=== PATIENT | female | born 1970 | race Caucasian/White ===

== ENCOUNTER 2019-07-13 10:25 | Emergency (ER) | payer OTHER, SELFPAY ==
--- NOTE | 2019-07-13 10:35 | ED.URI ---
HPI - URI/Sore Throat General Chief Complaint: Upper Respiratory Infection Stated Complaint: sob/fatigue/cough Time Seen by Provider: 07/13/19 10:50 Source: patient and RN notes reviewed Mode of arrival: ambulatory Limitations: no limitations History of Present Illness HPI Narrative: 48-year-old female with rheumatoid arthritis presents with concern for fever, body aches, diarrhea, headache, cough that started Saturday night. Reports she did not get a flu shot this year. Reports she takes immunosuppressant medicines for RA. MD elicited complaint: cough Related Data Home Medications Medication Instructions Recorded Confirmed abatacept (with maltose) [Orencia 250 mg IV MONTHLY 07/13/19 07/13/19 (with maltose)] folic acid 1 mg DAILY 07/13/19 07/13/19 ibuprofen-famotidine [Duexis] 1 tablet PO 3XW 07/13/19 07/13/19 leflunomide 10 mg DAILY 07/13/19 07/13/19 Allergies Allergy/AdvReac Type Severity Reaction Status Date / Time Penicillins Allergy Unknown Verified 04/09/18 15:20 Review of Systems Review of Systems: Narrative: CONSTITUTIONAL: Reports malaise, chills, sweats, or fever. EYES: Denies visual changes, redness, or discharge. ENT: Reports rhinorrhea, congestion. Denies sinus pain, otalgia and sore throat. CARDIOVASCULAR: Denies chest pain, palpitations, or edema. RESPIRATORY: Reports cough, chest congestion. Denies dyspnea. GASTROINTESTINAL: Denies abdominal pain, nausea, vomiting, diarrhea SKIN: Denies rash or itching. MUSCULOSKELETAL: Denies myalgia. NEUROLOGIC: Denies headache. All systems reviewed & are unremarkable except as noted in HPI and below PMFSH Family History Family History (Updated 04/09/18 @ 15:23 by DOCTOR UNKNOWN) Father Diabetes mellitus Hypertension Mother Family history of arthritis Social History Social History Gender identity (if verbalized by the patient): Female Comments At time of signature, agree with nursing past medical, surgical, social and family history. There is no relevant family history pertinent to the presenting complaint Exam Narrative: Exam Narrative: GENERAL: Well-appearing, well-nourished, and in no acute distress. HEAD: Normocephalic, atraumatic. EYES: PERRLA, conjunctivae clear, and EOMI. ENT: Nares clear, turbinates edematous and erythematous, clear discharge. Mucous membranes moist. TM pearly mahoney with dull light reflex bilaterally; no tragal tenderness. Oropharynx erythematous without lesions. Tonsils not enlarged and without exudate, no drooling, no hoarseness, no trismus. NECK: Supple. No lymphadenopathy CHEST: Clear to auscultation, breath sounds equal. Scattered wheeze, no rhonchi, rales, or stridor. No respiratory distress, speaks in full sentences. Cough noted HEART: Regular rate and rhythm. No murmur heard. Normal peripheral pulses. SKIN: Warm, dry, no rash. NEURO: Alert and oriented x3. PSYCH: Normal mood and affect Course Course Emergency Course: Patient is aware of diagnosis, understands and agrees to treatment plan. Anticipatory guidance given. Patient agrees to follow-up as directed and is aware of reasons to seek care at the emergency department. Portions of this record may have been created with voice recognition software Vital Signs Vital signs: Vital Signs Temperature 99.7 F H 07/13/19 10:40 Pulse Rate 97 07/13/19 10:40 Respiratory Rate 07/13/19 10:40 Blood Pressure 120/65 07/13/19 10:40 Pulse Oximetry 99 07/13/19 10:40 Temperature 99.7 F H 07/13/19 10:40 Pulse Rate 97 07/13/19 10:40 Respiratory Rate 07/13/19 10:40 Blood Pressure 120/65 07/13/19 10:40 Pulse Oximetry 99 07/13/19 10:40 Reviewed. MDM - URI/Sore Throat MDM Narrative Medical decision making narrative: Differential diagnosis considered: Strep pharyngitis, allergic rhinitis, upper respiratory tract infection, sinusitis, rhinosinusitis, nasopharyngitis. viral pharyngitis, otitis media, otitis externa, pneumonia, bronchi
[2019-07-13 10:40] VITALS: BP 120/65; PULSE 97; RESP 20; TEMP 37.6; O2SAT 99
== END 2019-07-13 11:11 | disposition home or self-care (01) ==
PROVIDERS: Emergency Provider Nurse Practitioner
DX: J10.1 Influenza due to other identified influenza virus with other respiratory manifestations (principal)
CPT/HCPCS: 87804; 99213; G0463

== ENCOUNTER 2019-07-19 15:49 | Emergency (ER) | payer OTHER, SELFPAY ==
--- NOTE | ~2019-07-19 | XR_ITS ---
EXAMINATION: XR chest 2V DATE: 07/19/2019 16:32 INDICATION: Cough. TECHNIQUE: Frontal and lateral views of the chest were obtained. COMPARISON: Chest 2 views 09/08/2018, chest CT 07/31/2017 FINDINGS: There are airspace opacities in the lower lung zones. No pleural effusion or pneumothorax. The heart size is normal. Surgical clips in the right upper quadrant are likely from cholecystectomy. IMPRESSION: 1. Mild airspace opacities in the lower lung zones, consistent with atelectasis versus pneumonia. Reviewed, dictated and finalized at location A. TER TOUCH UP
[2019-07-19 15:58] VITALS: BP 97/61; PULSE 97; RESP 20; TEMP 36.9; O2SAT 98
--- NOTE | 2019-07-19 16:24 | ED.URI ---
HPI - URI/Sore Throat General Chief Complaint: Upper Respiratory Infection Stated Complaint: SOB/chest congestion/cough Time Seen by Provider: 07/19/19 16:12 Source: patient and RN notes reviewed Mode of arrival: ambulatory Limitations: no limitations History of Present Illness HPI Narrative: Patient presents today complaining of a one-week history of cough. She was seen here on 07/13/2019, diagnosed with influenza A and subsequently prescribed Xofluza, prednisone, Cheratussin, and ipratropium nasal spray. States her fever broke 3 days ago. She is also been taking ibuprofen. States cough and shortness of breath was so severe this morning that she almost called 911 . When asked why she did not go to the ER, patient states that she did want to go to the hospital, but her family would not take her there because they did not want to wait during Bowsaturday. Patient has history of rheumatoid arthritis, factor V Leiden. MD elicited complaint: cough and other (Shortness of breath) Related Data Home Medications Medication Instructions Recorded Confirmed abatacept (with maltose) [Orencia 250 mg IV MONTHLY 07/13/19 07/13/19 (with maltose)] folic acid 1 mg DAILY 07/13/19 07/13/19 ibuprofen-famotidine [Duexis] 1 tablet PO 3XW 07/13/19 07/13/19 leflunomide 10 mg DAILY 07/13/19 07/13/19 Allergies Allergy/AdvReac Type Severity Reaction Status Date / Time Penicillins Allergy Unknown Verified 04/09/18 15:20 Review of Systems Review of Systems: Narrative: CONSTITUTIONAL: Denies body aches, fever, chills, or sweats. EYES: Denies visual changes, redness, or discharge. ENT: Denies rhinorrhea, congestion, sore throat, or otalgia. CARDIOVASCULAR: Denies chest pain, palpitations, or edema. RESPIRATORY: + Cough, shortness of breath GASTROINTESTINAL: Denies abdominal pain, nausea, vomiting, or diarrhea. GENITOURINARY: Denies dysuria or hematuria. SKIN: Denies rash, itching, or wounds. MUSCULOSKELETAL: Denies back pain, joint pain, or myalgia. NEUROLOGIC: Denies headache, numbness, tingling, or weakness. PSYCH: Denies depression or anxiety. [facility] Past Medical History Medical History (Updated 07/19/19 @ 16:50 by Rosa Ramirez, [facility], ) Factor V Leiden Rheumatoid arthritis Surgical History Surgical History (Updated 07/19/19 @ 16:28 by Rosa Ramirez, [facility], ) History of cholecystectomy Family History Family History (Updated 04/09/18 @ 15:23 by DOCTOR UNKNOWN) Father Diabetes mellitus Hypertension Mother Family history of arthritis Social History Social History Gender identity (if verbalized by the patient): Female Comments At time of signature, I have reviewed and agree with nursing past medical, surgical, social and family history unless otherwise noted. Please see nursing chart for further information. There is no relevant family history pertinent to the presenting complaint Exam Narrative: Exam Narrative: GENERAL: Mildly ill-appearing, well-nourished, and in no acute distress. HEAD: Normocephalic, atraumatic. EYES: EOMI. No redness or drainage. Conjunctivae normal. ENT: Mucous membranes pink and moist. Nares clear. No rhinorrhea. TMs normal bilaterally. Throat normal. Uvula midline. NECK: Normal AROM. Supple. No lymphadenopathy. CHEST: No respiratory distress. Coarse breath sounds in the bilateral lower lobes. Able to speak in complete sentences. HEART: Regular rate and rhythm. No murmur appreciated. Normal peripheral pulses. MUSCULOSKELETAL: No bony tenderness. EXTREMITIES: Normal range of motion. No edema. SKIN: Warm, dry, no rash. NEURO: No focal deficits. Alert and oriented x3. Gait steady. PSYCH: Normal affect. No signs of depression or anxiety. Course Vital Signs Vital signs: Vital Signs Temperature 98.4 F 07/19/19 15:58 Pulse Rate 97 07/19/19 15:58 Respiratory Rate 20 07/19/19 15:58 Blood Pressure 97/61 L 07/19/19 15:58 Pulse Oximetry 98 07/19/19 15
[2019-07-19] MEDS: ALBUTEROL SULFATE NEB 2.5 MG/3 ML INH INHALATION (16:33)
[2019-07-19] MEDS: IPRATROPIUM BR 0.02% INH SOLN 0.5 MG/2.5 ML VIAL INHALATION (16:33)
== END 2019-07-19 17:00 | disposition home or self-care (01) ==
PROVIDERS: Emergency Provider Nurse Practitioner
DX: J18.9 Pneumonia, unspecified organism (principal); M06.9 Rheumatoid arthritis, unspecified
CPT/HCPCS: 71046; 94640; 99213; G0463

== ENCOUNTER 2019-09-17 12:03 | Emergency (ER) | payer OTHER, SELFPAY ==
--- NOTE | ~2019-09-17 | XR_ITS ---
XR foot LT min 3V DATE: 09/17/2019 12:19 INDICATION: Injury. Pain at third-fifth metatarsals TECHNIQUE: 4 views COMPARISON: None FINDINGS: Posterior calcaneal enthesopathy. No fracture or dislocation, periosteal reaction or bone destruction is evident. IMPRESSION: No fracture or dislocation Reviewed, dictated and finalized at location B. IMPRESSION: No fracture or dislocation
--- NOTE | 2019-09-17 12:05 | ED.LOWEXIN ---
HPI - Extremity Injury (Lower) General Chief Complaint: Extremity Injury, Lower Stated Complaint: Left foot Pain Time Seen by Provider: 09/17/19 12:18 Source: patient and RN notes reviewed Mode of arrival: ambulatory Limitations: no limitations History of Present Illness HPI Narrative: 48-year-old female presents with concern for left foot injury. Reports 2 hours ago she ran her foot into a door jam. Reports pain is at the top of her foot below digits 4 and 5 particularly. Reports swelling and decreased sensation. Reports history of rheumatoid arthritis. Denies any open wounds. MD complaint: foot injury Related Data Home Medications Medication Instructions Recorded Confirmed abatacept (with maltose) [Orencia 250 mg IV MONTHLY 07/13/19 07/13/19 (with maltose)] folic acid 1 mg DAILY 07/13/19 07/13/19 ibuprofen-famotidine [Duexis] 1 tablet PO 3XW 07/13/19 07/13/19 leflunomide 10 mg DAILY 07/13/19 07/13/19 Allergies Allergy/AdvReac Type Severity Reaction Status Date / Time Penicillins Allergy Unknown Verified 04/09/18 15:20 Review of Systems Review of Systems: Narrative: CONSTITUTIONAL: Denies malaise, chills, sweats, or fever. CARDIOVASCULAR: Denies chest pain, palpitations RESPIRATORY: Denies dyspnea. SKIN: Reports redness, bruising to left dorsal aspect of left foot MUSCULOSKELETAL: Reports dorsal left foot pain, decreased sensation to the digits of the left foot NEUROLOGIC: Denies numbness, weakness. All systems reviewed & are unremarkable except as noted in HPI and below PMFSH Past Medical History Medical History (Updated 09/17/19 @ 12:31 by Jolie Munoz NP) Factor V Leiden Rheumatoid arthritis Surgical History Surgical History (Updated 07/19/19 @ 16:28 by Rosa Ramirez, [facility], ) History of cholecystectomy Family History Family History (Updated 04/09/18 @ 15:23 by DOCTOR UNKNOWN) Father Diabetes mellitus Hypertension Mother Family history of arthritis Social History Social History Gender identity (if verbalized by the patient): Female Comments At time of signature, agree with nursing past medical, surgical, social and family history. There is no relevant family history pertinent to the presenting complaint Exam Narrative: Exam Narrative: GENERAL: Well-appearing, well-nourished, and in no acute distress. HEAD: Normocephalic, atraumatic. EYES: PERRLA, conjunctivae clear NECK: Supple. CHEST: Speaks in full sentences. No respiratory distress. HEART: Regular rate and rhythm. Normal and equal peripheral pulses. EXTREMITIES: Left foot and digits of left foot have normal strength, decreased sensation to digits 3, 4 and 5 otherwise normal sensation. Minimal edema noted to dorsal aspect of the foot below digits 4 and 5 in addition to digits 4 and 5, normal range of motion. 5/5 strength with digit and ankle flexion and extension. Normal sensation with sensitivity to light touch and pain. No open wounds, no skin tenting, no devitalized tissue or atrophy, no trophic changes, no ecchymosis, no obvious deformity, alignment normal, no point tenderness, nearby joints and structures intact. Distal pulses palpable and equal bilaterally, skin warm, dry, pink. Capillary refill less than 3 seconds. SKIN: Warm, dry, no rash. NEURO: Alert and oriented x3. PSYCH: Normal mood and affect Course Course Emergency Course: Patient is aware of diagnosis, understands and agrees to treatment plan. Anticipatory guidance given. Patient agrees to follow-up as directed and is aware of reasons to seek care at the emergency department. Portions of this record may have been created with voice recognition software Vital Signs Vital signs: Vital Signs Temperature 98.5 F 09/17/19 12:23 Pulse Rate 98 09/17/19 12:23 Respiratory Rate 20 09/17/19 12:23 Blood Pressure 119/74 09/17/19 12:23 Pulse Oximetry 98 09/17/19 12:23 Temperature 98.5 F 09/17/19 12:23 Pulse Rate 98 09/17/19 12:23
[2019-09-17 12:23] VITALS: BP 119/74; PULSE 98; RESP 20; TEMP 36.9; O2SAT 98
== END 2019-09-17 12:38 | disposition home or self-care (01) ==
PROVIDERS: Emergency Provider Nurse Practitioner; PCP Emergency Medicine
DX: S99.922A Unspecified injury of left foot, initial encounter (principal); W22.09XA Striking against other stationary object, initial encounter; D68.2 Hereditary deficiency of other clotting factors; M06.9 Rheumatoid arthritis, unspecified
CPT/HCPCS: 73630; 99213; G0463

== ENCOUNTER 2020-06-10 10:42 | Emergency (ER) | payer OTHER, SELFPAY ==
[2020-06-10] VITALS (16 sets, daily range): BP systolic 107–127; BP diastolic 58–97; PULSE 73–97; RESP 13–27; TEMP 36.6; O2SAT 98–100
--- NOTE | ~2020-06-10 | CT_ITS ---
EXAMINATION: CTA chest PE protocol EXAM DATE: 06/10/2020 14:17 INDICATION: Chest pain, shortness of breath, elevated dimer. TECHNIQUE: Spiral CTA of the chest (pulmonary arteries) was performed with 100 cc Omnipaque 350 intr avenous contrast injection. Images were acquired during the pulmonary arterial phase. Coronal maxi mum intensity projection 3D-reconstructions were created by the technologist on dedicated workstation . Axial, coronal and sagittal reformatted images were reviewed. The dose-length product (DLP) for t his examination was 255.99 mGy-cm. The exposure was tailored according to patient size (auto mA exp osure control), and iterative reconstruction (ASIR) was used as additional dose reduction technique. Comparison is made to prior examination from 07/31/2017. FINDINGS: There are no pulmonary emboli in the 1st through 3rd order (central and interlobar) pulmon armani arteries. Some loss of attenuation in the segmental pulmonary arteries due to respiratory motion , but no intraluminal filling defects suspected. No thoracic aortic dissection. There is a 5 mm no dule at the right lung apex, image 25, new compared to 2018. Bibasilar linear scarring. There are no pleural or pericardial effusions. Tracheobronchial tree is patent. There is no mediastinal, hilar or axillary lymphadenopathy. There is no pneumothorax. Heart normal in size. No evidence of co ronary arterial calcification. Cholecystectomy clips. There is mild thoracic spondylosis without os teoblastic or osteolytic lesions identified. IMPRESSION: 1. New right upper lobe 5 mm nodule, indeterminate; recommend 6 month follow-up chest CT. 2. Bibasilar linear scarring. 3. No pulmonary emboli. Reviewed, dictated and finalized at location A. R TOBACCO HEAD IMPRESSION: 1. New right upper lobe 5 mm nodule, indeterminate; recommend 6 month follow-u p chest CT. 2. Bibasilar linear scarring. 3. No pulmonary emboli.
--- NOTE | ~2020-06-10 | XR_ITS ---
EXAMINATION: XR chest 2V EXAM DATE: 06/10/2020 11:13 INDICATION: Chest pressure radiating to both sides of neck. TECHNIQUE: Frontal and lateral projections of the chest obtained and reviewed. Comparison is made to prior examination from 07/19/2019. FINDINGS: Small amount of linear left lower lobe scarring and change. The lungs are otherwise clear. There are no pleural effusions. The cardiomediastinal silhouette is within normal limits. There is no pneumothorax suspected. There are mild bony degenerative changes. IMPRESSION: No acute cardiopulmonary findings. Reviewed, dictated and finalized at location A. MANAGER CPA
--- NOTE | 2020-06-10 10:57 | ECG_ITS ---
Measurements Intervals [place] Rate: 90 P: 71 [place]: 124 QRS: 62 QRSD: 88 T: 67 QT: 346 QTc: 424 Interpretive Statements SINUS RHYTHM WITH SINUS ARRHYTHMIA RSR' IN V1 OR V2, PROBABLY NORMAL VARIANT BASELINE ARTIFACT- I, III, AVL BORDERLINE ECG Electronically Signed On 06-10-2020 11:48:00 [employer] TECHNICIAN by Freedom Dorado D.O.
[2020-06-10 11:10] LABS: Basophils Absolute Auto 0.1 K/mm3 (0.0-0.1); Basophils Percent Auto 0.6 % (0.2-1.2); Eosinophils Absolute Auto 0.5 K/mm3 (0-0.3); Eosinophils Percent Auto 5.3 % (0-4.4); Hematocrit 44.1 % (37.0-47.0); Hemoglobin 15.2 g/dL (12.0-15.0); Immature Granulocyte Absolute 0.02 K/mm3 (0.00-0.031); Immature Granulocyte Percent A 0.2 % (0-0.5); Lymphocytes Absolute Auto 1.57 K/mm3 (0.9-3.2); Lymphocytes Percent Auto 17.7 % (18.3-44.2); Mean Corpuscular HGB Conc 34.5 g/dl (32-36); Mean Corpuscular Hemoglobin 31.3 pg (26-34); Mean Corpuscular Volume 90.9 fl (80-100); Mean Platelet Volume 9.6 fl (7.4-10.4); Monocytes Absolute Auto 0.7 K/mm3 (0.1-0.6); Monocytes Percent Auto 7.4 % (2.6-8.5); Neutrophils Absolute Auto 6.1 K/mm3 (1.3-6.7); Neutrophils Percent Auto 68.8 % (45.5-73.1); Platelet Count Result 227 k/mm3 (150-375); Red Blood Count 4.85 M/mm3 (4.2-5.4); Red Cell Distribution Width 11.8 % (11.5-14.5); White Blood Count 8.9 K/mm3 (4.5-10.0)
[2020-06-10 11:20] LABS: INR 0.8; Prothrombin Time 11.7 Seconds (11.1-14.7)
[2020-06-10 11:21] LABS: Partial Thromboplastin Time 28.4 SECONDS (22.3-36.8)
[2020-06-10 11:23] LABS: Anion Gap 7 mmol/L (8-16); Blood Urea Nitrogen 17 mg/dL (7-17); Calcium 9.7 mg/dL (8.4-10.2); Carbon Dioxide 23 mmol/L (22-30); Chloride 107 mmol/L (98-107); Estimated CRCL calculation 90 ml/min; Estimated Glomerular Filt Rate > 60; Glucose 104 mg/dL (65-105); Potassium 4.1 mmol/L (3.4-5.0); Sodium 137 mmol/L (137-145)
[2020-06-10 11:35] LABS: Troponin I < 0.012 ng/mL (0.000-0.034)
[2020-06-10] MEDS: ASPIRIN 81 MG CHEWABLE TABLET 324 MG PO (11:41)
--- NOTE | 2020-06-10 12:08 | ED.CHESTPAIN ---
HPI - Chest Pain General Chief Complaint: Chest Pain <Rachna Lobo PA-C - Last Filed: 06/10/20 15:01> Stated Complaint: chest pain, sob <CATALINA Acuna Last Filed: 06/10/20 15:01> Time Seen by Provider: 06/10/20 11:36 <CATALINA Acuna Last Filed: 06/10/20 15:01> Source: patient <CATALINA Acuna Last Filed: 06/10/20 15:01> Mode of arrival: ambulatory <CATALINA Acuna Last Filed: 06/10/20 15:01> Limitations: no limitations <CATALINA Acuna Last Filed: 06/10/20 15:01> History of Present Illness HPI narrative: This is a 49 year old female that presents to the ER for chest pain that started yesterday. Reports a tightness in her chest. Reports history of RA and that she feels she is having a flare as her hands are starting to swell as well. Reports associated shortness of breath. Denies fever, cough, or lower extremity edema. <CATALINA Acuna Last Filed: 06/10/20 15:01> Related Data Home Medications: Home Medications Medication Instructions Recorded Confirmed abatacept (with maltose) [Orencia 250 mg IV MONTHLY 07/13/19 09/17/19 (with maltose)] folic acid 1 mg DAILY 07/13/19 09/17/19 ibuprofen-famotidine [Duexis] 1 tablet PO 3XW 07/13/19 07/13/19 leflunomide 10 mg DAILY 07/13/19 09/17/19 <CATALINA Acuna Last Filed: 06/10/20 15:01> Allergies/Adverse Reactions: Allergies Allergy/AdvReac Type Severity Reaction Status Date / Time Penicillins Allergy Unknown Verified 04/09/18 15:20 <CATALINA Acuna Last Filed: 06/10/20 15:01> Review of Systems Review of Systems: Narrative: CONSTITUTIONAL: Denies fever CARDIOVASCULAR: Reports chest pain. Denies edema. RESPIRATORY: Denies cough or dyspnea. MUSCULOSKELETAL: Reports joint pain, and myalgia. <Rachna Lobo PA-C - Last Filed: 06/10/20 15:01> All systems reviewed & are unremarkable except as noted in HPI and below <Rachna Lobo PA-C - Last Filed: 06/10/20 15:01> PMFSH Past Medical History Medical History: Medical History (Updated 06/10/20 @ 15:01 by Rachna Lobo PA-C) Factor V Leiden Rheumatoid arthritis <Rachna Lobo PA-C - Last Filed: 06/10/20 15:01> Surgical History Surgical History: Surgical History (Updated 07/19/19 @ 16:28 by Rosa Ramirez, [facility], ) History of cholecystectomy <Rachna Lobo PA-C - Last Filed: 06/10/20 15:01> Family History Family History: Family History (Updated 04/09/18 @ 15:23 by DOCTOR UNKNOWN) Father Diabetes mellitus Hypertension Mother Family history of arthritis <Rachna Lobo PA-C - Last Filed: 06/10/20 15:01> Social History Social History: Social History Gender identity (if verbalized by the patient): Female Sexual Orientation (if Verbalized by the Patient): Straight or Heterosexual <Rachna Lobo PA-C - Last Filed: 06/10/20 15:01> Exam Narrative: Exam Narrative: GENERAL: Well-appearing, well-nourished, and in no acute distress. HEAD: Normocephalic, atraumatic. EYES: EOMI. ENT: Mucous membranes moist. Oropharynx without tonsillar hypertrophy exudate or other lesions. CHEST: Clear to auscultation. No respiratory distress. No wheezes rales or rhonchi HEART: Regular rate and rhythm. No murmur heard. Normal peripheral pulses. EXTREMITIES: Normal range of motion. No edema. SKIN: Warm, dry, no rash. NEURO: No focal deficits. Alert and oriented x3. PSYCH: Normal mood and affect <Rachna Lobo PA-C - Last Filed: 06/10/20 15:01> Course Vital Signs Vital signs: Vital Signs Pulse Rate 94 06/10/20 10:50 Respiratory Rate 27 H 12/25/20 10:50 Blood Pressure 116/85 06/10/20 10:50 Temperature 97.8 F 06/10/20 10:58 Pulse Rate 88 06/10/20 15:12 Respiratory Rate 14 06/10/20 15:12 Blood Pressure 107/80 06/10/20 15:12 Pulse Oximetry 99 06/10/20 15:12 <Rachna Lobo PA-C - Last Filed: 06/10/20 1
[2020-06-10] MEDS: KETOROLAC 30 MG/ML VIAL (*BKC) IV PUSH (12:14)
--- NOTE | 2020-06-10 12:16 | PC.NURSE ---
patient medicated as ordered. resting on stretcher. on litigation claim representative.
[2020-06-10] MEDS: methylPREDNISolone SOD SUCC 125 MG VIAL IV PUSH (12:27)
[2020-06-10 12:44] LABS: D Dimer 2.77 ug/mL (<0.48)
[2020-06-10 13:34] LABS: CRP 1.5 mg/dL (<1.0)
[2020-06-10 14:02] LABS: Erythrocyte Sedimentation Rate 38 mm/hr (0-20)
[2020-06-10 14:25] LABS: Troponin I < 0.012 ng/mL (0.000-0.034)
[2020-06-10] MEDS: ENOXAPARIN 100 MG/ML SYRINGE 85 MG SUB-Q (15:04)
== END 2020-06-10 15:13 | disposition home or self-care (01) ==
PROVIDERS: Physician Assistant; Emergency Provider General Practice; PCP Emergency Medicine
DX: R91.1 Solitary pulmonary nodule (principal); R07.89 Other chest pain; M06.9 Rheumatoid arthritis, unspecified; D68.51 Activated protein C resistance
CPT/HCPCS: 36415; 71046; 71275; 80048; 81025; 84484; 85025; 85380; 85610; 85652; 85730; 86140; 93005; 96372; 96374; 96375; 99284; A9270; J1650; J1885; J2930; Q9967

== ENCOUNTER 2021-06-20 09:59 | Outpatient (RCR) | payer OTHER, SELFPAY ==
[2021-06-20 15:35] VITALS: BP 108/64; PULSE 70; RESP 18; TEMP 35.5; O2SAT 100
[2021-06-20] MEDS: diphenhydrAMINE HCl CAP 25 MG CAPSULE PO (15:38)
[2021-06-20] MEDS: ACETAMINOPHEN 325 MG TABLET 650 MG PO (15:38)
[2021-06-20] MEDS: FAMOTIDINE 20 MG TABLET PO (15:38)
[2021-06-20 17:04] VITALS: BP 103/63; PULSE 66; O2SAT 100
== END 2021-06-20 17:00 ==
LOC: AMCINF 09:59
PROVIDERS: PCP Nurse Practitioner Family; Referring Provider Nurse Practitioner Family; Visit Provider Internal Medicine Hematology & Oncology
DX: U07.1 COVID-19 (principal); D84.9 Immunodeficiency, unspecified
CPT/HCPCS: A9270; M0247

== ENCOUNTER → 2022-02-26 09:47 | Outpatient (CLI) | payer OTHER, SELFPAY ==
[2022-02-27 11:17] LABS: Influenza A QL RT-PCR Negative (Negative); Influenza B QL RT-PCR Negative (Negative); SARS-CoV-2 RNA PCR Positive
== END ==
PROVIDERS: PCP Family Medicine; Visit Provider Nurse Practitioner Family
DX: R05.9 Cough, unspecified (principal); R68.83 Chills (without fever); U07.1 COVID-19
CPT/HCPCS: 87502; C9803; U0003; U0005

== ENCOUNTER 2022-02-26 10:28 | Outpatient (CLI) | payer OTHER, SELFPAY ==
--- NOTE | ~2022-02-26 | XR_ITS ---
EXAMINATION: XR chest 2V DATE: 02/26/2022 10:46 INDICATION: Persistent productive cough and body aches TECHNIQUE: PA and lateral views of the chest are obtained. COMPARISON: 06/10/2020 FINDINGS: The lungs are free of acute opacities. No pleural effusion or pneumothorax. The cardiomedia stinal silhouette is normal. There is mild thoracic spondylosis. Surgical clips in the right upper qu adrant are likely from prior cholecystectomy. IMPRESSION: 1. No acute cardiopulmonary abnormality. Reviewed, dictated and finalized at location B.
== END 2022-02-26 10:29 | disposition home or self-care (01) ==
LOC: ANHIMG 10:32
PROVIDERS: PCP Family Medicine; Visit Provider Nurse Practitioner Family
DX: R05.9 Cough, unspecified (principal); R68.83 Chills (without fever)
CPT/HCPCS: 71046

== ENCOUNTER 2022-04-09 13:10 | Emergency (ER) | payer OTHER, SELFPAY ==
[2022-04-09 13:21] VITALS: BP 97/53; PULSE 97; RESP 18; TEMP 36.7; O2SAT 99
--- NOTE | 2022-04-09 13:51 | ED.URI ---
HPI - URI/Sore Throat General Chief Complaint: Upper Respiratory Infection Stated Complaint: flu like symptoms Time Seen by Provider: 04/09/22 13:30 Source: patient Mode of arrival: ambulatory Limitations: no limitations History of Present Illness HPI Narrative: This cannot be is a 51-year-old female patient presenting to the clinic today with complaints of flu-like symptoms. She reports that she has had a fever of 102 and some sinus pressure times 2-3 days. She reports that she has been having to do with long COVID syndrome and has been having chronic sinusitis issues with this. She reports she just finished up antibiotics 2 weeks ago for chronic sinusitis. She reports that every other day she is having some nasal drainage and different variations of color. States she has a history of rheumatoid arthritis and she gets infusions for this. She is concerned about the fever as though she may have influenza and would like to be testing for the flu today. She denies have a cough but states that is coming from her sinuses. She denies any shortness of breath or chest pain currently. She denies any sore throat, urinary symptoms, or abdominal pain. States that her temperature was a 102? F on her arm and her head scan would not work MD elicited complaint: sore throat and nasal congestion Related Data Home Medications Medication Instructions Recorded Confirmed cholecalciferol (vitamin D3) 50 50 mcg PO DAILY 06/20/21 02/14/22 mcg (2,000 unit) capsule (Vitamin D3) lactobacillus combination no.4 3 3,000 mmu cells PO DAILY 06/20/21 02/14/22 billion cell capsule (Probiotic) tcliuumv-aci-diouc acid 0.4 1 tablet PO DAILY 06/20/21 02/14/22 mg-lycopene 300 mcg-lutein 250 mcg tablet (Centrum Silver) naproxen sodium 220 mg capsule 220 mg PO DAILY 06/20/21 02/14/22 (Aleve) rituximab 10 mg/mL 1,000 mg IV [id number] 06/20/21 02/14/22 concentrate,intravenous (Rituxan) Allergies Allergy/AdvReac Type Severity Reaction Status Date / Time nitrofurantoin Allergy Unknown Skin Verified 02/23/22 11:01 Reaction Penicillins Allergy Unknown Unknown Verified 02/23/22 11:01 Review of Systems Review of Systems: Pertinent positives per HPI. Patient denies any rash, headache, visual changes, dizziness, cough, shortness of breath, chest pain, palpitations, nausea, vomiting, diarrhea, constipation, abdominal pain, or any urinary issues. [facility] Past Medical History Medical History Factor V Leiden Rheumatoid arthritis Smoking Vitamin D deficiency Surgical History Surgical History History of cholecystectomy Family History Family History Father Diabetes mellitus Hypertension Mother Family history of arthritis Social History Social History Smoking packs per day: 1 Smoking cigarettes per day: 20.0 Smoking status: Former smoker Tobacco type: cigarettes Second hand tobacco smoke exposure: No Alcohol intake: current Substance use: never Substance use type: does not use Gender identity (if verbalized by the patient): Female Sexual Orientation (if Verbalized by the Patient): Straight or Heterosexual Comments At the time of my signature, I reviewed and agree with the nursing past medical, surgical, social, and family history. There is no relevant family history pertinent to the patient complaint. Exam Narrative: General: Well-developed, well nourished, in no apparent distress Head: Normocephalic, atraumatic Eyes: Pupils equally round and reactive to light bilaterally, EOM intact, sclera and conjunctive clear, no discharge, lids normal Ears: TMs intact and clear, ear canals clear, no drainage, grossly hearing normal. Nose: Nares patent, clear nasal discharge, mode
== END 2022-04-09 14:11 | disposition home or self-care (01) ==
PROVIDERS: Emergency Provider Nurse Practitioner Family; PCP Family Medicine
DX: J10.1 Influenza due to other identified influenza virus with other respiratory manifestations (principal); J01.01 Acute recurrent maxillary sinusitis; Z87.891 Personal history of nicotine dependence; M06.9 Rheumatoid arthritis, unspecified; D68.51 Activated protein C resistance; E55.9 Vitamin D deficiency, unspecified
CPT/HCPCS: 87804; 99213; G0463

== ENCOUNTER 2022-05-04 21:22 | Emergency (ER) | payer OTHER, SELFPAY ==
[2022-05-04 21:31] VITALS: BP 102/54; PULSE 88; RESP 18; TEMP 37.1; O2SAT 98
--- NOTE | 2022-05-04 22:18 | ED.EXTPRO ---
HPI - Extremity Problem General Chief complaint: Extremity Problem,Nontraumatic Stated complaint: possible blood clot Time Seen by Provider: 05/04/22 21:48 History of Present Illness HPI Narrative: 51-year-old female presents to the emergency room for evaluation of pain, swelling, redness to her right elbow. Patient denies injury or trauma. Patient states that she had a midline placed due to 13-day hospitalization related to pneumonia and COVID. Patient was treated at [facility] with remdesivir and dexamethasone. States that dexamethasone was completed yesterday. Patient complaining of unresolved shortness of breath from her pneumonia and COVID. Patient states the dyspnea is her new baseline since her diagnosis of pneumonia and COVID. Patient has a history of factor V Leiden. Patient presents requesting an ultrasound to evaluate for possible right upper extremity blood clot. Related Data Home Medications Medication Instructions Recorded Confirmed cholecalciferol (vitamin D3) 50 50 mcg PO DAILY 06/20/21 04/26/22 mcg (2,000 unit) capsule (Vitamin D3) phdyaezr-fvc-ctiuv acid 0.4 1 tablet PO DAILY 06/20/21 04/26/22 mg-lycopene 300 mcg-lutein 250 mcg tablet (Centrum Silver) naproxen sodium 220 mg capsule 220 mg PO DAILY 06/20/21 04/26/22 (Aleve) rituximab 10 mg/mL 1,000 mg IV [id number] 06/20/21 04/26/22 concentrate,intravenous (Rituxan) Allergies Allergy/AdvReac Type Severity Reaction Status Date / Time nitrofurantoin Allergy Unknown Skin Verified 04/26/22 14:34 Reaction Penicillins Allergy Unknown Unknown Verified 04/26/22 14:34 Review of Systems Review of Systems: CONSTITUTIONAL: Denies fever, chills, or sweats. EYES: Denies visual changes, redness, or discharge. ENT: Denies rhinorrhea, congestion, sore throat, or otalgia. CARDIOVASCULAR: Denies chest pain, palpitations, or edema. RESPIRATORY: Reports dyspnea GASTROINTESTINAL: Denies abdominal pain, nausea, vomiting, or diarrhea. GENITOURINARY: Denies dysuria or hematuria. SKIN: Denies rash or itching. MUSCULOSKELETAL: Reports pain to her right elbow NEUROLOGIC: Denies headache, numbness, dizziness, or weakness. PSYCHIATRIC: Denies anxiety or depression. [facility] Past Medical History Medical History Factor V Leiden Rheumatoid arthritis Smoking Vitamin D deficiency Surgical History Surgical History History of cholecystectomy Family History Family History Father Diabetes mellitus Hypertension Mother Family history of arthritis Social History Social History Smoking packs per day: 1 Smoking cigarettes per day: 20.0 Smoking status: Former smoker Tobacco type: cigarettes Second hand tobacco smoke exposure: No Alcohol intake: current Substance use: never Substance use type: does not use Gender identity (if verbalized by the patient): Female Sexual Orientation (if Verbalized by the Patient): Straight or Heterosexual Exam Narrative: GENERAL: Well-appearing, well-nourished, no physical limitations, and in no acute distress. HEAD: Normocephalic, atraumatic. EYES: Conjunctivae normal, PERRLA and EOMI. CHEST: Clear to auscultation. No respiratory distress. No wheezes rales or rhonchi. HEART: Regular rate and rhythm. No murmur heard. Normal peripheral pulses. ABDOMEN: Soft, nontender, nondistended, normal active bowel sounds. EXTREMITIES: RUE: Erythema, swelling, tenderness to medial side right elbow, tenderness extends into the antecubital area. right radial pulse present +2 SKIN: Warm, dry, no rash. No noted wounds NEURO: No focal deficits. Alert and oriented x3. MAEW. CN's II-XI intact bilaterally, normal gait PSYCH: Cooperative. Normal mood and affect. Course Vital Signs Vital signs:
[2022-05-04 22:25] LABS: Basophils Percent Auto 0.6 % (0.2-1.2); Eosinophils Absolute Auto 0.1 K/mm3 (0-0.3); Eosinophils Percent Auto 2.1 % (0-4.4); Hematocrit 38.8 % (37.0-47.0); Hemoglobin 13.1 g/dL (12.0-15.0); Immature Granulocyte Absolute 0.04 K/mm3 (0.00-0.031); Immature Granulocyte Percent A 0.6 % (0-0.5); Lymphocytes Absolute Auto 1.37 K/mm3 (0.9-3.2); Lymphocytes Percent Auto 20.9 % (18.3-44.2); Mean Corpuscular HGB Conc 33.8 g/dl (32-36); Mean Corpuscular Volume 94.9 fl (80-100); Mean Platelet Volume 9.1 fl (7.4-10.4); Monocytes Absolute Auto 0.5 K/mm3 (0.1-0.6); Monocytes Percent Auto 7.9 % (2.6-8.5); Neutrophils Absolute Auto 4.4 K/mm3 (1.3-6.7); Neutrophils Percent Auto 67.9 % (45.5-73.1); Platelet Count Result 198 k/mm3 (150-375); Red Blood Count 4.09 M/mm3 (4.2-5.4); Red Cell Distribution Width 13.4 % (11.5-14.5); White Blood Count 6.6 K/mm3 (4.5-10.0)
[2022-05-04 22:34] LABS: Anion Gap 9 mmol/L (8-16); Blood Urea Nitrogen 28 mg/dL (7-17); Calcium 8.8 mg/dL (8.4-10.2); Carbon Dioxide 24 mmol/L (22-30); Chloride 105 mmol/L (98-107); Estimated Glomerular Filt Rate > 60; Glucose 83 mg/dL (65-110); Potassium 4.2 mmol/L (3.4-5.0); Sodium 138 mmol/L (137-145)
[2022-05-04] MEDS: ENOXAPARIN 80 MG/0.8 ML SYRINGE 75 MG SUB-Q (22:36)
[2022-05-04 22:37] LABS: INR 0.9; Prothrombin Time 11.9 Seconds (11.1-14.7)
[2022-05-04 22:38] LABS: Partial Thromboplastin Time 26.7 SECONDS (22.3-36.8)
[2022-05-04 22:44] VITALS: BP 128/80; PULSE 76; RESP 16; TEMP 36.7; O2SAT 100
== END 2022-05-04 22:45 | disposition home or self-care (01) ==
PROVIDERS: Emergency Provider Nurse Practitioner Family; PCP Family Medicine
DX: M25.521 Pain in right elbow (principal); R06.00 Dyspnea, unspecified; D68.51 Activated protein C resistance; M06.9 Rheumatoid arthritis, unspecified; Z79.1 Long term (current) use of non-steroidal anti-inflammatories (NSAID); Z87.891 Personal history of nicotine dependence
CPT/HCPCS: 36415; 80048; 85025; 85610; 85730; 96372; 99283; J1650

== ENCOUNTER 2022-05-05 07:13 | Outpatient (CLI) | payer OTHER, SELFPAY ==
--- NOTE | ~2022-05-05 | US_ITS ---
EXAMINATION: US venous doppler UE RT DATE: 05/05/2022 07:45 INDICATION: Right upper extremity pain and swelling TECHNIQUE: Grayscale images without and with compression and Doppler images of the right upper extrem ity veins were obtained. COMPARISON: None. FINDINGS: The right internal jugular vein, subclavian vein, axillary vein, cephalic and vein are patent and com pressible. There is noncompressible occlusive thrombus in the right brachial, basilic, radial and uln ar veins no evident vascular flow on color Doppler. IMPRESSION: 1. Occlusive appearing deep venous thrombosis in the right brachial, basilic, radial and ulnar veins. Reviewed, dictated and finalized at location A. GER STUDY IMPRESSION: 1. Occlusive appearing deep venous thrombosis in the right brachial, basilic, r adial and ulnar veins.
== END 2022-05-05 07:14 | disposition home or self-care (01) ==
PROVIDERS: PCP Family Medicine; Visit Provider Family Medicine
DX: M79.89 Other specified soft tissue disorders (principal); I82.621 Acute embolism and thrombosis of deep veins of right upper extremity
CPT/HCPCS: 93971

== ENCOUNTER 2022-07-10 01:51 | Observation (INO) | payer OTHER, SELFPAY ==
[2022-07-10] VITALS (29 sets, daily range): BP systolic 79–121; BP diastolic 44–84; PULSE 70–120; RESP 13–24; TEMP 36.3–36.8; O2SAT 94–100; BMI 29.7
--- NOTE | 2022-07-10 | ECG_ITS ---
Measurements Intervals [place] Rate: 72 P: 65 ID: [id number] QRS: 63 QRSD: 87 T: 60 QT: 394 QTc: 431 Interpretive Statements SINUS RHYTHM INCOMPLETE RIGHT BUNDLE BRANCH BLOCK BASELINE ARTIFACT- I, II, AVR, AVL, V1 BORDERLINE ECG COMPARED TO ECG 07/10/2022 02:57:09 SINUS RHYTHM NOW PRESENT Electronically Signed On 07-11-2022 6:18:22 [employer]OELECT[employer]ANT OPERATOR by Freedom Dorado D.O.
--- NOTE | ~2022-07-10 | XR_ITS ---
Clinical Indication: Palpitations PA and lateral views of the chest: Comparison: 02/26/2022 Findings: Stable linear left basilar scarring. The lungs are otherwise clear, without evidence of foc al consolidation or pleural effusion. Cardiomediastinal silhouette is within normal limits. Bones an d soft tissues are unremarkable. Impression: Linear left basilar scarring, otherwise clear lungs. Reviewed, dictated and finalized at location . ERVATIONIST Impression: Linear left basilar scarring, otherwise clear lungs.
--- NOTE | 2022-07-10 02:48 | ECG_ITS ---
Measurements Intervals [place] Rate: 111 P: CT: 0 QRS: 52 QRSD: 91 T: 57 QT: 311 QTc: 424 Interpretive Statements ATRIAL FIBRILLATION WITH RAPID VENTRICULAR RESPONSE INCOMPLETE RIGHT BUNDLE BRANCH BLOCK ABNORMAL ECG NO PREVIOUS ECG AVAILABLE FOR COMPARISON Electronically Signed On 07-10-2022 7:49:55 FAMILY SERVICES ASSISTANT by Freedom Dorado D.O.
[2022-07-10 03:35] LABS: Basophils Percent Auto 0.2 % (0.2-1.2); Eosinophils Percent Auto 0.1 % (0-4.4); Hematocrit 37.8 % (37.0-47.0); Hemoglobin 13.1 g/dL (12.0-15.0); Immature Granulocyte Absolute 0.02 K/mm3 (0.00-0.031); Immature Granulocyte Percent A 0.2 % (0-0.5); Lymphocytes Absolute Auto 1.37 K/mm3 (0.9-3.2); Lymphocytes Percent Auto 15.2 % (18.3-44.2); Mean Corpuscular HGB Conc 34.7 g/dl (32-36); Mean Corpuscular Hemoglobin 31.1 pg (26-34); Mean Corpuscular Volume 89.8 fl (80-100); Mean Platelet Volume 10.3 fl (7.4-10.4); Monocytes Absolute Auto 0.5 K/mm3 (0.1-0.6); Monocytes Percent Auto 5.2 % (2.6-8.5); Neutrophils Absolute Auto 7.1 K/mm3 (1.3-6.7); Neutrophils Percent Auto 79.1 % (45.5-73.1); Platelet Count Result 193 k/mm3 (150-375); Red Blood Count 4.21 M/mm3 (4.2-5.4); Red Cell Distribution Width 12.3 % (11.5-14.5)
[2022-07-10] MEDS: PANTOPRAZOLE SODIUM IV 40 MG VIAL IV PUSH (03:39)
[2022-07-10] MEDS: dilTIAZem HCl INJ 25 MG/5 ML VIAL 10 MG IV PUSH (03:39)
[2022-07-10 03:48] LABS: Prothrombin Time 12.9 Seconds (11.1-14.7)
[2022-07-10 03:49] LABS: Partial Thromboplastin Time 29.4 SECONDS (22.3-36.8)
[2022-07-10 03:51] LABS: Magnesium 1.9 mg/dL (1.6-2.3)
[2022-07-10] MEDS: dilTIAZem 100 MG/100 ML 100 MG/100 ML BAG IV CONT (04:07)
[2022-07-10 04:10] LABS: Alanine Aminotransferase 43 U/L (6-35); Albumin Level 3.5 g/dL (3.5-5.1); Alkaline Phosphatase 66 U/L (38-126); Anion Gap 5 mmol/L (8-16); Aspartate Amino Transferase 34 U/L (14-36); Bilirubin,Total 0.4 mg/dL (0.2-1.3); Blood Urea Nitrogen 16 mg/dL (7-17); Calcium 8.9 mg/dL (8.4-10.2); Carbon Dioxide 22 mmol/L (22-30); Chloride 112 mmol/L (98-107); Estimated CRCL calculation 99 ml/min; Estimated Glomerular Filt Rate > 60; Glucose 144 mg/dL (65-110); Lipase 69 U/L (23-300); Potassium 3.6 mmol/L (3.4-5.0); Sodium 139 mmol/L (137-145)
--- NOTE | 2022-07-10 04:11 | ED.GENADULT ---
HPI - General Adult General Chief complaint: Arrhythmia/Palpitations Stated complaint: my heart is out of rhythm Time Seen by Provider: 07/10/22 03:20 History of Present Illness HPI narrative: Is a 51-year-old female who presents the emergency department with chief complaint of palpitations. Patient reports that she has been receiving Rituxan infusions and recently had a dose. Patient states that her heart became irregular and was beating fast this evening. The patient denies chest pain reports she felt little tightness in her chest. Patient reports she is currently on a DOAC for a DVT of her right upper extremity but is currently not on a beta-cecil or calcium channel cecil. Related Data Home Medications Medication Instructions Recorded Confirmed cholecalciferol (vitamin D3) 50 50 mcg PO DAILY 06/20/21 05/09/22 mcg (2,000 unit) capsule (Vitamin D3) vfjpifec-djs-yihau acid 0.4 1 tablet PO DAILY 06/20/21 05/09/22 mg-lycopene 300 mcg-lutein 250 mcg tablet (Centrum Silver) naproxen sodium 220 mg capsule 220 mg PO DAILY 06/20/21 05/09/22 (Aleve) rituximab 10 mg/mL 1,000 mg IV [id number] 06/20/21 05/09/22 concentrate,intravenous (Rituxan) Allergies Allergy/AdvReac Type Severity Reaction Status Date / Time nitrofurantoin Allergy Unknown Skin Verified 05/07/22 09:37 Reaction Penicillins Allergy Unknown Unknown Verified 05/07/22 09:37 codeine AdvReac Rash Verified 07/10/22 02:58 [facility] Past Medical History Medical History Factor V Leiden Rheumatoid arthritis Smoking Vitamin D deficiency Surgical History Surgical History History of cholecystectomy Family History Family History Father Diabetes mellitus Hypertension Mother Family history of arthritis Social History Social History Smoking packs per day: 1 Smoking cigarettes per day: 20.0 Smoking status: Former smoker Tobacco type: cigarettes Second hand tobacco smoke exposure: No Alcohol intake: current Substance use: never Substance use type: does not use Living arrangements: with family Occupation/Education: occupation Gender identity (if verbalized by the patient): Female Sexual Orientation (if Verbalized by the Patient): Straight or Heterosexual Course Vital Signs Vital signs: Vital Signs Temperature 36.3 C L 07/10/22 02:02 Pulse Rate 70 07/10/22 02:02 Respiratory Rate 19 07/10/22 02:02 Blood Pressure 121/80 07/10/22 02:02 Pulse Oximetry 97 07/10/22 02:02 Oxygen Delivery Room Air 07/10/22 02:02 Temperature 36.3 C L 07/10/22 02:02 Pulse Rate 95 07/10/22 05:10 Respiratory Rate 16 07/10/22 05:10 Blood Pressure 98/75 L 07/10/22 05:10 Pulse Oximetry 98 07/10/22 05:10 Oxygen Delivery Room Air 07/10/22 02:02 Medical Decision Making MDM Narrative Medical decision making narrative: EKG interpreted by me as atrial fibrillation with rapid ventricular response with a rate of 111 Vital Signs Vital Signs: Vital Signs Temperature 36.3 C L 07/10/22 02:02 Pulse Rate 70 07/10/22 02:02 Respiratory Rate 19 07/10/22 02:02 Blood Pressure 121/80 07/10/22 02:02 Pulse Oximetry 97 07/10/22 02:02 Oxygen Delivery Room Air 07/10/22 02:02 Temperature 36.3 C L 07/10/22 02:02 Pulse Rate 95 07/10/22 05:10 Respiratory Rate 16 07/10/22 05:10 Blood Pressure 98/75 L 07/10/22 05:10 Pulse Oximetry 98 07/10/22 05:10 Oxygen Delivery Room Air 07/10/22 02:02 Lab Data 07/10/22 03:06 07/10/22 03:06 Labs: Lab Results 07/10/22 07/10/22 07/10/22 Range/Units 03:06 03:06 03:06 WBC 9.0 (4.5-10.0) K/mm3 RBC 4.21 (4.2-5.4) M/mm3 Hgb 13.1 (12.0-15.0) g/dL Hct 37.8 (37.0-47.0) % MCV 8
[2022-07-10 04:21] LABS: Troponin I < 0.012 ng/mL (0.000-0.034)
[2022-07-10] MEDS: AMIODARONE 150 MG/D5W 100 ML 150 MG/100 ML BAG 600 MG IV CONT (06:00)
[2022-07-10] MEDS: AMIODARONE 360 MG/D5W 200 ML 360 MG/200 ML BAG 33.33 MG IV CONT (06:15)
[2022-07-10 06:24] LABS: Troponin I < 0.012 ng/mL (0.000-0.034)
--- NOTE | 2022-07-10 06:37 | ADMGEN ---
This patient, Haydee Ortez, was admitted to [facility] at 0635. Patient/family oriented to hospital policies and general routines including ID bracelet, bed and alarms, visiting hours, pain management, procedures, bathroom and other care routines, personal items, smoking policy, room service/diet, and visiting hours. Information on how to activate the Rapid Response Team has been discussed. Patient/Family are encouraged to report perceived risks to care and to ask questions if they do not understand what they are told or what they should do.
[2022-07-10] MEDS: CHOLECALCIFEROL 1,000 UNITS TABLET 2000 UNITS PO (09:10)
[2022-07-10] MEDS: APIXABAN 5 MG TABLET PO ×2 (09:10→20:48)
[2022-07-10] MEDS: MULTIVITAMINS /C LUTEIN (CENTRUM SILVER) TABLET *BKC 1 TAB PO (09:10)
[2022-07-10] MEDS: FLUTICASONE PROPIONATE 0.05% NA SPR 16 GM BTL (*BKC) 1 SPRAY NASAL (09:11)
[2022-07-10] MEDS: AMIODARONE 360 MG/D5W 200 ML 360 MG/200 ML BAG 16.67 MG IV CONT (11:23)
[2022-07-10 11:28] LABS: Troponin I < 0.012 ng/mL (0.000-0.034)
--- NOTE | 2022-07-10 11:44 | PM.CNCAR ---
Assessment and Plan Assessment and plan (1) Atrial fibrillation with rapid ventricular response: Code(s): I48.91 - Unspecified atrial fibrillation Status: Acute (2) Deep vein thrombosis (DVT) of axillary vein of right upper extremity: Code(s): I82.A11 - Acute embolism and thrombosis of right axillary vein Status: Acute (3) Factor V Leiden: Code(s): D68.51 - Activated protein C resistance Status: Acute (4) Rheumatoid arthritis: Code(s): M06.9 - Rheumatoid arthritis, unspecified Status: Acute Plan Currently on Amiodarone drip. Will start Metoprolol. Recent TTE was unremarkable. Will check TSH. Patient's [id number] score is 1 for gender, which does not necessitate long-term anticoagulation specifically for her atrial fibrillation. Patient is on anticoagulation for her RUE DVT. History of Present Illness History of Present Illness Consult date/time: 07/10/22 11:44 Requesting physician: Rahda Mckinney MD Consult reason: atrial fibrillation Reason For Visit: New onset A. fib with RVR Narrative: We are consulted for atrial fibrillation with RVR. This is a 51-year-old female with a history of rheumatoid arthritis, right upper extremity DVT diagnosed 04/2022 on Eliquis for anticoagulation, factor V Leiden, who presented to the ER with palpitations. Noted her heart rate beating fast and irregularly. Does get Rituxan infusions regularly for her rheumatoid arthritis. Found to be in atrial fibrillation with RVR in the ER, which is a new diagnosis for the patient. Was started initially on Dilt drip, but became hypotensive, so she was started on Amiodarone drip. Review of Systems Review of Systems: 12-point ROS obtained. Negative, unless stated in HPI. [facility] Past Medical History Medical History Factor V Leiden Rheumatoid arthritis Smoking Vitamin D deficiency Surgical History Surgical History History of cholecystectomy Family History Family History Father Diabetes mellitus Hypertension Mother Family history of arthritis Social History Social History Smoking packs per day: 1 Smoking cigarettes per day: 20.0 Years smoked: 38 Smoking pack-years: 38.00 Smoking status: Former smoker Tobacco type: cigarettes Second hand tobacco smoke exposure: No Smoking end date: 04/08/22 Alcohol intake: current Drinks per week: 0 Substance use: former Substance use type: marijuana Other substance usage details: edibles Last use: months Lack of Transportation: No Lack of Food: Never True Current Housing: I Have Housing Concerned About Future Housing: No Difficulty Paying Gas/Electric Bills: No Difficulty Paying for Meds: No Currently Unemployed: No Education: Trade/Vocational Certificate Difficulty w/ Childcare or Family Care: No Living arrangements: with family Occupation/Education: occupation Gender identity (if verbalized by the patient): Female Sexual Orientation (if Verbalized by the Patient): Straight or Heterosexual Spiritual care concerns: No Meds Home Medications and Allergies Home Medications Medication Instructions Recorded Confirmed Type cholecalciferol (vitamin D3) 50 50 mcg PO DAILY 06/20/21 07/10/22 History mcg (2,000 unit) capsule (Vitamin D3) fqqzkfpv-bcf-otpqr acid 0.4 1 tablet PO DAILY 06/20/21 07/10/22 History mg-lycopene 300 mcg-lutein 250 mcg tablet (Centrum Silver) naproxen sodium 220 mg capsule 220 mg PO DAILY PRN Mild Pain 06/20/21 07/10/22 History (Aleve) (Scale Score 1-4) rituximab 10 mg/mL 1,000 mg IV [id number] 06/20/21 07/10/22 History concentrate,intravenous (Rituxan) fluticasone propionate 50 1 spray intranasal DAILY #16 grams 02/14/22 07/10/22 Rx mcg/actua
[2022-07-10] MEDS: METOPROLOL TARTRATE 50 MG TAB PO (12:12)
--- NOTE | 2022-07-10 14:24 | PM.IMHP ---
H&P: HPI History of Present Illness Date/Time: 07/10/22 14:24 Chief Complaint: palpitation Narrative: ED-HPI narrative: Is a 51-year-old female who presents the emergency department with chief complaint of palpitations.? Patient reports that she has been receiving Rituxan infusions and recently had a dose.? Patient states that her heart became irregular and was beating fast this evening.? The patient denies chest pain reports she felt little tightness in her chest.? Patient reports she is currently on a DOAC for a DVT of her right upper extremity but is currently not on a beta-cecil or calcium channel cecil. patient is a 51-year-old female with history of rheumatoid arthritis had been seen by Rheumatology and receiving immunotherapy with Rituaxan yesterday and felt palpitation and presented emergency depart and patient is found to have atrial fibrillation with RVR patient had been taking Eliquis for DVT patient was started on diltiazem drip with rate control, currently patient states feeling much better denies any chest pain palpitation or dizziness, patient states that on her previous dose of Rituxan she had developed palpitation, in Mar, she had cardiac ECHO, and it was normal, patient remains in AFib with rate of 120, will CPM and patient will be seen by Cardiology and further recommendation to follow. patient admitted as observation status Review of Systems Review of Systems: 12-point ROS obtained. Negative, unless stated in HPI. [facility] Past Medical History Medical History Factor V Leiden Rheumatoid arthritis Smoking Vitamin D deficiency Surgical History Surgical History History of cholecystectomy Family History Family History Father Diabetes mellitus Hypertension Mother Family history of arthritis Social History Social History Smoking packs per day: 1 Smoking cigarettes per day: 20.0 Years smoked: 38 Smoking pack-years: 38.00 Smoking status: Former smoker Tobacco type: cigarettes Second hand tobacco smoke exposure: No Smoking end date: 04/08/22 Alcohol intake: current Drinks per week: 0 Substance use: former Substance use type: marijuana Other substance usage details: edibles Last use: months Lack of Transportation: No Lack of Food: Never True Current Housing: I Have Housing Concerned About Future Housing: No Difficulty Paying Gas/Electric Bills: No Difficulty Paying for Meds: No Currently Unemployed: No Education: Trade/Vocational Certificate Difficulty w/ Childcare or Family Care: No Living arrangements: with family Occupation/Education: occupation Gender identity (if verbalized by the patient): Female Sexual Orientation (if Verbalized by the Patient): Straight or Heterosexual Spiritual care concerns: No Meds Home Medications and Allergies Home Medications Medication Instructions Recorded Confirmed Type cholecalciferol (vitamin D3) 50 50 mcg PO DAILY 06/20/21 07/10/22 History mcg (2,000 unit) capsule (Vitamin D3) ncyzhqhp-ruk-ymrnp acid 0.4 1 tablet PO DAILY 06/20/21 07/10/22 History mg-lycopene 300 mcg-lutein 250 mcg tablet (Centrum Silver) naproxen sodium 220 mg capsule 220 mg PO DAILY PRN Mild Pain 06/20/21 07/10/22 History (Caleb) (Scale Score 1-4) rituximab 10 mg/mL 1,000 mg IV [id number] 06/20/21 07/10/22 History concentrate,intravenous (Rituxan) fluticasone propionate 50 1 spray intranasal DAILY #16 grams 02/14/22 07/10/22 Rx mcg/actuation nasal spray,suspension (Flonase Allergy Relief) apixaban 5 mg tablet (Eliquis) 5 mg PO BID #60 tabs 05/07/22 07/10/22 Rx Allergies Allergy/AdvReac Type Severity Reaction Status Date / Time nitrofurantoin Allergy Unknown Skin Verified
[2022-07-10] MEDS: METOPROLOL TARTRATE 50 MG TAB 100 MG PO (20:48)
[2022-07-11] VITALS: BP 99/62; PULSE 68; PULSE 72; RESP 20; TEMP 36.8; O2SAT 99
[2022-07-11 01:36] VITALS: PULSE 67; PULSE 74; RESP 20; O2SAT 99
[2022-07-11 04:00] VITALS: BP 106/75; PULSE 66; RESP 16; TEMP 36.3; O2SAT 99
[2022-07-11 06:00] VITALS: PULSE 69
[2022-07-11 08:00] VITALS: BP 114/79; PULSE 63; PULSE 64; RESP 16; TEMP 36.6; O2SAT 96
[2022-07-11] MEDS: APIXABAN 5 MG TABLET PO (08:13)
[2022-07-11] MEDS: MULTIVITAMINS /C LUTEIN (CENTRUM SILVER) TABLET *BKC 1 TAB PO (08:13)
[2022-07-11] MEDS: METOPROLOL TARTRATE 50 MG TAB 100 MG PO (08:13)
[2022-07-11] MEDS: CHOLECALCIFEROL 1,000 UNITS TABLET 2000 UNITS PO (08:13)
[2022-07-11] MEDS: FLUTICASONE PROPIONATE 0.05% NA SPR 16 GM BTL (*BKC) 1 SPRAY NASAL (08:14)
[2022-07-11 08:35] LABS: Anion Gap 1 mmol/L (8-16); Blood Urea Nitrogen 15 mg/dL (7-17); Calcium 8.3 mg/dL (8.4-10.2); Carbon Dioxide 27 mmol/L (22-30); Chloride 112 mmol/L (98-107); Estimated CRCL calculation 89 ml/min; Estimated Glomerular Filt Rate > 60; Glucose 100 mg/dL (65-110); Magnesium 1.7 mg/dL (1.6-2.3); Potassium 4.2 mmol/L (3.4-5.0); Sodium 140 mmol/L (137-145)
[2022-07-11 08:46] LABS: Hematocrit 40.2 % (37.0-47.0); Hemoglobin 13.8 g/dL (12.0-15.0); Mean Corpuscular HGB Conc 34.3 g/dl (32-36); Mean Corpuscular Hemoglobin 31.7 pg (26-34); Mean Corpuscular Volume 92.2 fl (80-100); Platelet Count Result 173 k/mm3 (150-375); Red Blood Count 4.36 M/mm3 (4.2-5.4); Red Cell Distribution Width 12.7 % (11.5-14.5); White Blood Count 6.8 K/mm3 (4.5-10.0)
--- NOTE | 2022-07-11 09:01 | PM.PNCARD ---
Progress Note: A&P Assessment and Plan (1) Atrial fibrillation with rapid ventricular response: Code(s): I48.91 - Unspecified atrial fibrillation Status: Acute (2) Deep vein thrombosis (DVT) of axillary vein of right upper extremity: Code(s): I82.A11 - Acute embolism and thrombosis of right axillary vein Status: Acute (3) Factor V Leiden: Code(s): D68.51 - Activated protein C resistance Status: Acute (4) Rheumatoid arthritis: Code(s): M06.9 - Rheumatoid arthritis, unspecified Status: Acute Plan Maintaining sinus rhythm on metoprolol. Recent TTE was unremarkable. TSH was normal Patient's [id number] score is 1 for gender, which does not necessitate long-term anticoagulation specifically for her atrial fibrillation. Patient is on anticoagulation for her RUE DVT. Cardiology will sign off. Will arrange follow up in our office. Please do not hesitate to contact us with any further questions. Subjective Date/time seen: 07/11/22 09:01 Cardiology follow up for atrial fibrillation Feels well this morning and has no complaints. She remains in sinus rhythm. Exam Const: General: comfortable and no acute distress HENMT: Mouth: Yes moist mucous membranes Eyes: General: appearance normal, both eyes and all related structures Sclera: sclerae normal Neck: Neck: supple Resp: Effort & Inspection: normal respiratory effort Auscultation: clear to auscultation bilaterally Cardio: Rate: regular rate Rhythm: regular rhythm Heart sounds: no murmurs Skin: General skin exam: normal color Neuro: Speech: normal speech Extrem: General: normal to inspection Psych: Mental Status: mental status grossly normal Affect: normal affect Objective Data Vital Signs Vital Signs: Vital Signs - 24 hr 07/10/22 09:15 07/10/22 10:00 07/10/22 10:03 Temperature Pulse Rate 104 H 103 H 103 H Respiratory Rate 15 16 Blood Pressure 115/74 106/84 Pulse Oximetry Oxygen Delivery 07/10/22 11:23 07/10/22 12:00 07/10/22 12:00 Temperature 36.8 C Pulse Rate 120 H 105 H 115 H Respiratory Rate 17 Blood Pressure 106/81 101/76 Pulse Oximetry 94 Oxygen Delivery 07/10/22 12:12 07/10/22 14:00 07/10/22 14:54 Temperature Pulse Rate 106 H 95 100 Respiratory Rate Blood Pressure 109/71 Pulse Oximetry Oxygen Delivery 07/10/22 16:00 07/10/22 16:00 07/10/22 18:00 Temperature 36.8 C Pulse Rate 100 110 H 109 H Respiratory Rate 18 Blood Pressure 93/62 L Pulse Oximetry 95 Oxygen Delivery 07/10/22 20:48 07/10/22 20:00 07/10/22 20:00 Temperature 36.5 C Pulse Rate 80 75 77 Respiratory Rate 18 Blood Pressure 109/69 Pulse Oximetry 98 Oxygen Delivery 07/10/22 20:00 07/11/22 00:00 07/10/22 22:00 Temperature 36.8 C Pulse Rate 77 72 72 Respiratory Rate 18 20 Blood Pressure 99/62 L Pulse Oximetry 98 99 Oxygen Delivery Room Air 07/11/22 00:00 07/11/22 00:00 07/11/22 01:36 Temperature Pulse Rate 68 72 74 Respiratory Rate 20 Blood Pressure Pulse Oximetry 99 Oxygen Delivery Room Air 07/11/22 01:36 07/11/22 01:36 07/11/22 04:00 Temperature 36.3 C L Pulse Rate 67 74 66 Respiratory Rate 20 16 Blood Pressure 106/75 Pulse Oximetry 99 99 Oxygen Delivery Room Air 07/11/22 06:00 07/11/22 08:00 07/11/22 08:00 Temperature 36.6 C Pulse Rate 69 64 63 Respiratory Rate 16 Blood Pressure 114/79 Pulse Oximetry 96 Oxygen Delivery Intake/Output Intake/Output: Intake & Output 07/08/22 07/09/22 07/10/22 07/11/22 23:59 23:59 23:59 23:59 Intake Total 887.9 150 Balance 887.9 150 Meds/Results Medications: Active Medications Generic Name Dose Route Start Last Admin Trade Name Freq PRN Reason Stop Dose Admin Apixaban 5 mg 07/10/22 09:00 07/11/22 08:13 Apixaban 5 Mg Tablet PO 5 mg Q12HR SINDHU Administration Fluticasone Propionate 1 spray 06/18
--- NOTE | 2022-07-11 09:38 | PM.DS ---
DS: Admitting Diagnosis Discharge Date 07/11/2022 Admitting Diagnosis palpitation DS: Discharge Diagnosis Discharge Diagnosis (1) Atrial fibrillation with rapid ventricular response: Code(s): I48.91 - Unspecified atrial fibrillation Status: Acute Assessment and Plan: ED-HPI narrative: Is a 51-year-old female who presents the emergency department with chief complaint of palpitations.? Patient reports that she has been receiving Rituxan infusions and recently had a dose.? Patient states that her heart became irregular and was beating fast this evening.? The patient denies chest pain reports she felt little tightness in her chest.? Patient reports she is currently on a DOAC for a DVT of her right upper extremity but is currently not on a beta-cecil or calcium channel cecil. patient is a 51-year-old female with history of rheumatoid arthritis had been seen by Rheumatology and receiving immunotherapy with Rituaxan yesterday and felt palpitation and presented emergency depart and patient is found to have atrial fibrillation with RVR patient had been taking Eliquis for DVT patient was started on diltiazem drip with rate control, currently patient states feeling much better denies any chest pain palpitation or dizziness, patient states that on her previous dose of Rituxan she had developed palpitation, in Mar, she had cardiac ECHO, and it was normal, patient remains in AFib with rate of 120, will CPM and patient will be seen by Cardiology and further recommendation to follow. (2) Deep vein thrombosis (DVT) of axillary vein of right upper extremity: Code(s): I82.A11 - Acute embolism and thrombosis of right axillary vein Status: Acute (3) Immunodeficiency due to drug therapy: Code(s): D84.821 - Immunodeficiency due to drugs; Z79.899 - Other custodial (current) drug therapy Status: Acute DS: Summary Hospital Course Reason for hospitalization: ED-HPI narrative: Is a 51-year-old female who presents the emergency department with chief complaint of palpitations.? Patient reports that she has been receiving Rituxan infusions and recently had a dose.? Patient states that her heart became irregular and was beating fast this evening.? The patient denies chest pain reports she felt little tightness in her chest.? Patient reports she is currently on a DOAC for a DVT of her right upper extremity but is currently not on a beta-cecil or calcium channel cecil. ?patient is a 51-year-old female with history of rheumatoid arthritis had been seen by Rheumatology and receiving immunotherapy with Rituaxan? yesterday and felt palpitation and presented emergency depart and patient is found to have atrial fibrillation with RVR patient had been taking Eliquis? for DVT patient was started on diltiazem drip with rate control, currently patient states feeling much better denies any chest pain palpitation or dizziness, patient states that on her previous dose of Rituxan she had developed palpitation, in Mar, she had cardiac ECHO, and it was normal,? patient remains in AFib with rate of 120, will CPM and? patient will be seen by Cardiology and further recommendation to follow. Hospital Course: ?patient is a 51-year-old female with history of rheumatoid arthritis had been seen by Rheumatology and receiving immunotherapy with Rituaxan? yesterday and felt palpitation and presented emergency depart and patient is found to have atrial fibrillation with RVR patient had been taking Eliquis? for DVT patient was started on diltiazem drip with rate control, currently patient states feeling much better denies any chest pain palpitation or dizziness, patient states that on her previous dose of Rituxan she had developed palpitation, in Mar, she had cardiac ECHO, and it was normal,? patient remains in AFib with rate of 120, will CPM and? patient will be seen by Cardiology and further recommendation to follow. Patient converted to sinus rhythm s
== END 2022-07-11 10:04 | disposition home or self-care (01) ==
LOC: ANHED 05:16 → ANHCPC 06:31
PROVIDERS: Internal Medicine; Admitting Provider Family Medicine; Emergency Provider Emergency Medicine; PCP Family Medicine; Visit Provider Family Medicine
DX: I48.91 Unspecified atrial fibrillation (principal); I82.A11 Acute embolism and thrombosis of right axillary vein; D84.821 Immunodeficiency due to drugs; R00.2 Palpitations; R00.0 Tachycardia, unspecified; R07.89 Other chest pain; M06.9 Rheumatoid arthritis, unspecified; E55.9 Vitamin D deficiency, unspecified; D68.51 Activated protein C resistance; F10.90 Alcohol use, unspecified, uncomplicated; I45.10 Unspecified right bundle-branch block; R94.31 Abnormal electrocardiogram [ECG] [EKG]; Z87.891 Personal history of nicotine dependence; Z79.01 Long term (current) use of anticoagulants; Z79.1 Long term (current) use of non-steroidal anti-inflammatories (NSAID); Z79.899 Other long term (current) drug therapy; Z82.49 Family history of ischemic heart disease and other diseases of the circulatory system
CPT/HCPCS: 36415; 71046; 80048; 80053; 83690; 83735; 84443; 84484; 85025; 85027; 85610; 85730; 93005; 96365; 96366; 96367; 96375; 99285; A9270; C9113; G0378; J0282

== ENCOUNTER 2022-10-26 15:06 | Outpatient (CLI) | payer OTHER, SELFPAY ==
--- NOTE | ~2022-10-26 | US_ITS ---
EXAMINATION: US venous doppler UE RT DATE: 10/26/2022 15:36 INDICATION: Patient on calculus. History of DVT. TECHNIQUE: Bell scale images with and without compression and Doppler images of the ] upper extremity veins were obtained. COMPARISON: None. FINDINGS: The right internal jugular vein, subclavian vein, axillary vein, brachial veins, basilic vein, cephal ic vein, radial vein, and ulnar vein are patent. IMPRESSION: 1. Patent right upper extremity veins. No evidence of deep venous thrombosis. Reviewed, dictated and finalized at location B.
== END 2022-10-26 15:07 | disposition home or self-care (01) ==
PROVIDERS: PCP Family Medicine; Visit Provider Physician Assistant
DX: I82.A11 Acute embolism and thrombosis of right axillary vein (principal)
CPT/HCPCS: 93971

== ENCOUNTER 2022-10-31 04:02 | Emergency (ER) | payer OTHER, SELFPAY ==
--- NOTE | ~2022-10-31 | CT_ITS ---
Non-contrast Head CT History: Headache Technique: Axial non-contrast imaging of the brain was performed. Dose reduction technique was used on this scan by utilizing automated exposure control and iterative reconstruction technique. The dose -length product (DLP) was 605.33 mGy-cm. Findings: There is no evidence of intracranial hemorrhage, mass lesion, or acute infarct. Brain par enchyma appears normal. The ventricles and subarachnoid spaces are normal in size. The calvarium ap pears normal. There is bilateral frontal, bilateral ethmoid, bilateral maxillary sinus disease. Sphen oid sinuses and mastoid air cells are clear. Impression: No intracranial abnormality seen. Extensive sinusitis, as above. Reviewed, dictated and finalized at location . Impression: No intracranial abnormality seen. Extensive sinusitis, as above.
[2022-10-31 04:07] VITALS: BP 115/64; PULSE 90; RESP 16; TEMP 36.6; O2SAT 98
--- NOTE | 2022-10-31 04:25 | ED.GENADULT ---
HPI - General Adult General Chief complaint: Headache Stated complaint: Sinus infection Time Seen by Provider: 10/31/22 04:09 History of Present Illness HPI narrative: This is a 51-year-old female presenting ED with a chief complaint of headache. The patient has had chronic sinusitis since she developed COVID in January of 2022. She has seen multiple specialists and undergone multiple rounds of antibiotics. If unable to clear her sinusitis and have been unable to provide her reason for why she has it. Patient is here tonight because she has a frontal headache and her forehead that she describes as a pounding in her head. It awoke her from sleep 2 hours ago. She states that this is different from her typical sinus pressure because it covers her whole forehead instead of her frontal sinuses. Patient states she has a high pain tolerance and this is unbearable. She is concerned that her sinusitis may be eating through her skull. Patient denies fevers, chest pain difficulty breathing or neurologic symptoms. Patient took Tylenol for pain 6 hours ago. Related Data Home Medications Medication Instructions Recorded Confirmed cholecalciferol (vitamin D3) 50 50 mcg PO DAILY 06/20/21 10/18/22 mcg (2,000 unit) capsule (Vitamin D3) [id number] acid 0.4 1 tablet PO DAILY 06/20/21 10/18/22 mg-lycopene 300 mcg-lutein 250 mcg tablet (Centrum Silver) rituximab 10 mg/mL 1,000 mg IV [id number] 06/20/21 10/18/22 concentrate,intravenous (Rituxan) Allergies Allergy/AdvReac Type Severity Reaction Status Date / Time nitrofurantoin Allergy Unknown Skin Verified 10/18/22 14:13 Reaction Penicillins Allergy Unknown Unknown Verified 10/18/22 14:13 codeine AdvReac Rash Verified 10/18/22 14:13 [facility] Past Medical History Medical History Factor V Leiden Rheumatoid arthritis Smoking Vitamin D deficiency Surgical History Surgical History History of cholecystectomy Family History Family History Father Diabetes mellitus Hypertension Mother Family history of arthritis Social History Social History Smoking packs per day: 1 Smoking cigarettes per day: 20.0 Years smoked: 38 Smoking pack-years: 38.00 Smoking status: Former smoker Tobacco type: cigarettes Second hand tobacco smoke exposure: No Smoking end date: 04/08/22 Alcohol intake: current Drinks per week: 0 Substance use: former Substance use type: marijuana Other substance usage details: edibles Last use: months Lack of Transportation: No Lack of Food: Never True Current Housing: I Have Housing Concerned About Future Housing: No Difficulty Paying Gas/Electric Bills: No Difficulty Paying for Meds: No Currently Unemployed: No Education: Trade/Vocational Certificate Difficulty w/ Childcare or Family Care: No Living arrangements: with family Occupation/Education: occupation Gender identity (if verbalized by the patient): Female Sexual Orientation (if Verbalized by the Patient): Straight or Heterosexual Spiritual care concerns: No Exam Narrative: APPEARANCE: No apparent distress. Patient is sitting bed with a gown over her head and reflective sunglasses on. Head: atraumatic. tenderness to palpation over the frontal sinuses EYES: EOMI, pupils are TRACEY NOSE: Atraumatic NECK: Trachea midline RESPIRATORY: No increased rate of breathing, clear to auscultation CARDIOVASCULAR: RRR, no peripheral edema ABDOMINAL: Non-distended MUSCULOSKELETAl: No obvious deformities NEURO: Alert. Cranial nerves 2-12 grossly intact. Sensation light touch, motor function cerebellar function intact for 4 extremities. Gait exam was normal. SKIN:: Warm, dry. Normal color PSYCHIATRIC: Normal affect Course
[2022-10-31] MEDS: ACETAMINOPHEN 500 MG TABLET 1000 MG PO (04:30)
[2022-10-31] MEDS: diphenhydrAMINE HCl CAP 25 MG CAPSULE PO (04:30)
[2022-10-31] MEDS: PROCHLORPERAZINE EDISYLATE 10 MG/2 ML VIAL IM (04:32)
[2022-10-31 04:46] VITALS: BP 134/55; PULSE 85; RESP 16; O2SAT 98
[2022-10-31 06:45] VITALS: BP 132/82; PULSE 66; RESP 18; O2SAT 99
== END 2022-10-31 06:46 | disposition home or self-care (01) ==
PROVIDERS: Emergency Provider Emergency Medicine; PCP Family Medicine
DX: J32.9 Chronic sinusitis, unspecified (principal); D68.51 Activated protein C resistance; M06.9 Rheumatoid arthritis, unspecified; Z87.891 Personal history of nicotine dependence
CPT/HCPCS: 70450; 96372; 99284; A9270; J0780

== ENCOUNTER 2024-08-11 14:41 | Emergency (ER) | payer OTHER, SELFPAY ==
--- NOTE | ~2024-08-11 | XR_ITS ---
EXAM: XR ankle LT min 3V DATE: 08/11/2024 17:09 HISTORY: L ankle pain, s/p fall . COMPARISON: 09/08/2018. FINDINGS: Normal mineralization. Old medial malleolus tip avulsion fracture fragment. No new acute f racture or dislocation. Small bone island in the talus. No concerning lytic or blastic lesion. Mild d egenerative change at the tibiotalar joint. Achilles and plantar enthesopathy. No erosion or perioste al change. Soft tissues within normal limits. IMPRESSION: No acute osseous finding in the left ankle. Reviewed, dictated and finalized at location K. [facility]ER
[2024-08-11 14:55] VITALS: BP 108/62; PULSE 82; RESP 20; TEMP 36.4; O2SAT 100
--- NOTE | 2024-08-11 16:48 | ED.LOWEXIN ---
HPI - Extremity Injury (Lower) General Chief Complaint: Extremity Injury, Lower <Marco Mcnulty PA-C - Last Filed: 08/11/24 16:58> Stated Complaint: L. ankle pain, concerned about tendon <Marco Mcnulty PA-C - Last Filed: 08/11/24 16:58> Time Seen by Provider: 08/11/24 17:18 <Marco Mcnulty PA-C - Last Filed: 08/11/24 16:58> Focused HPI: This is a 53-year-old female who presents to the ED for chief complaint of left ankle injury that occurred yesterday. Reports pain throughout the posterior ankle and heel of the left foot. She states that she was helping her son move when she slipped down some stairs causing the initial injury yesterday. She is concerned over Achilles injury. Denies any specific known pop. Denies numbness, weakness or any further injury. She is requesting a splint for the pain GENERAL: Well-appearing, well-nourished, and in no acute distress. HEAD: Normocephalic, atraumatic. CHEST: Clear to auscultation. No respiratory distress. HEART: Regular rate and rhythm. EXTR: Mild tenderness to the calcaneus and Achilles distribution of the left calf. Negative May test. Ambulatory without assistance NEURO: Alert and oriented x3. Patient screened in triage and initial orders placed. Additional care and disposition to be based upon diagnostic testing and treatment. <Marco Mcnulty PA-C - Last Filed: 08/11/24 16:58> Focused HPI: This is a 53-year-old female who presents to the ED for chief complaint of left ankle injury that occurred yesterday. Reports pain throughout the posterior ankle and heel of the left foot. She states that she was helping her son move when she slipped down some stairs causing the initial injury yesterday. She is concerned over Achilles injury. Denies any specific known pop. Denies numbness, weakness or any further injury. She is requesting a splint for the pain. GENERAL: Well-appearing, well-nourished, and in no acute distress. HEAD: Normocephalic, atraumatic. CHEST: Clear to auscultation. No respiratory distress. HEART: Regular rate and rhythm. EXTR: Mild tenderness to the calcaneus and Achilles distribution of the left calf. Negative May test. Ambulatory without assistance NEURO: Alert and oriented x3. Patient screened in triage and initial orders placed. Additional care and disposition to be based upon diagnostic testing and treatment. <Imelda Mesa APRN - Last Filed: 08/11/24 19:30> Source: patient <Marco Mcnulty PA-C - Last Filed: 08/11/24 16:58> Mode of arrival: ambulatory <Marco Mcnulty PA-C - Last Filed: 08/11/24 16:58> Limitations: no limitations <Marco Mcnulty PA-C - Last Filed: 08/11/24 16:58> History of Present Illness HPI Narrative: I agree with the assessment and documentation of Marco Mcnulty PA-C. <Imelda Mesa APRN - Last Filed: 08/11/24 19:30> Related Data Home Medications: Home Medications ?Medication ?Instructions ?Recorded ?Confirmed ?Last Taken ?Type cholecalciferol (vitamin D3) 50 50 mcg PO DAILY 06/20/21 09/18/23 Unknown History mcg (2,000 unit) capsule (Vitamin D3) sdfvacyg-lrg-qrixc acid 0.4 1 tablet PO DAILY 06/20/21 09/18/23 Unknown History mg-lycopene 300 mcg-lutein 250 mcg tablet (Centrum Silver) rituximab 10 mg/mL 1,000 mg IV [id number] 06/20/21 09/18/23 07/09/22 History concentrate,intravenous (Rituxan) estradiol 0.01% (0.1 mg/gram) vaginal 03/21/23 09/18/23 Unknown History vaginal cream <Marco Mcnulty PA-C - Last Filed: 08/11/24 16:58> Allergies/Adverse Reactions: Allergies Allergy/AdvReac Type Severity Reaction Status Date / Time nitrofurantoin Allergy Unknown Skin Verified 08/11/24 14:42 Reaction Penicillins Allergy Unknown Unknown Verified 08/11/24 14:42 codeine AdvReac Rash Verified 08/11/24 14:42 <Marco Mcnulty PA-C - Last Filed: 08/11/24 16:58> Review of Systems Review of Systems: All systems reviewed & are unremarkable except as noted in HPI and below <Imelda Mesa APRN - Last Filed: 08/11/24 19:30> PMFSH Past Medical History Medical History: Medical History Smoking Vitamin D deficiency Factor V Leiden Rheumatoid arthritis <Marco Mcnulty PA-C - Last Filed: 08/11/24 16:58> Surgical History Surgical History: Surgical History History of cholecystectomy <Marco Mcnulty PA-C - Last Filed: 08/11/24 16:58> Family History Family History: Family History Father Diabetes mellitus Hypertension Mother Family history of arthritis <Marco Mcnulty PA-C - Last Filed: 08/11/24 16:58> Social History Social History: Social History Smoking packs per day: 1 Smoking cigarettes per day: 20.0 Years smoked: 38 Smoking pack-years: 38.00 Smoking status: Former smoker Tobacco type: cigarettes Second hand tobacco smoke exposure: No Smoking end date: 04/08/22 Alcohol intake: current Drinks per week: 0 Substance use: former Substance use type: marijuana Other substance usage details: edibles Last use: months Lack of Transportation: No Lack of Food: Never True Current Housing: I Have Housing Concerned About Future Housing: No Difficulty Paying Gas/Electric Bills: No Difficulty Paying for Meds: No Currently Unemployed: No Education: Trade/Vocational Certificate Difficulty w/ Childcare or Family Care: No Living arrangements: with family Occupation/Education: occupation Gender identity (if verbalized by the patient): Female Sexual Orientation (if Verbalized by the Patient): Straight or Heterosexual Spiritual care concerns: No <Marco Mcnulty PA-C - Last Filed: 08/11/24 16:58> Exam Narrative: GENERAL: Well appearing, well-nourished, non-toxic, in no acute distress. HEAD: Normocephalic, atraumatic. NECK: Supple. No adenopathy, no masses. RESPIRATORY: Airway patent, respirations nonlabored. Clear to auscultation bilaterally, no rales, rhonchi, wheezing. CARDIOVASCULAR: Regular rate and rhythm without murmurs, rubs, or gallops. Peripheral pulses 2+ and equal bilaterally. ABDOMINAL: Soft, nontender, nondistended, no hepatosplenomegaly. Normoactive BS. MUSCULOSKELETAL: Moves all extremities. Strength/ROM intact without gross deformities. SKIN: Warm, dry, normal color. No rashes. NEURO: A&O X3. Speech clear. Cranial nerves II-XII grossly intact. Steady gait. No ataxic movements. PSYCHIATRIC: Appropriate mood and affect. Normal interaction. <Imelda Mesa, SOLANGE - Last Filed: 08/11/24 19:30> Course Vital Signs Vital signs: Vital Signs Temperature 36.4 C L 08/11/24 14:55 Pulse Rate 82 08/11/24 14:55 Respiratory Rate 20 08/11/24 14:55 Blood Pressure 108/62 08/11/24 14:55 Pulse Oximetry 100 08/11/24 14:55 Temperature 36.4 C L 08/11/24 14:55 Pulse Rate 78 08/11/24 18:30 Respiratory Rate 16 08/11/24 18:30 Blood Pressure 112/69 08/11/24 18:30 Pulse Oximetry 100 08/11/24 18:30 <Marco Mcnulty PA-C - Last Filed: 08/11/24 16:58> Vital Signs Temperature 36.4 C L 08/11/24 14:55 Pulse Rate 82 08/11/24 14:55 Respiratory Rate 20 08/11/24 14:55 Blood Pressure 108/62 08/11/24 14:55 Pulse Oximetry 100 08/11/24 14:55 Temperature 36.4 C L 08/11/24 14:55 Pulse Rate 78 08/11/24 18:30 Respiratory Rate 16 08/11/24 18:30 Blood Pressure 112/69 08/11/24 18:30 Pulse Oximetry 100 08/11/24 18:30 <Imelda Mesa APRN - Last Filed: 08/11/24 19:30> MDM - Extremity Injury (Lower) MDM Narrative Medical decision making narrative: This is a 53-year-old female who presents to the ED for chief complaint of left ankle injury that occurred yesterday. Reports pain throughout the posterior ankle and heel of the left foot. She states that she was helping her son move when she slipped down some stairs causing the initial injury yesterday. She is concerned over Achilles injury. Denies any specific known pop. Denies numbness, weakness or any further injury. She is requesting a splint for the pain. Labs Ordered: None necessary Imaging Ordered: Left ankle x-ray Medications Ordered: Patient declined any medication Results: Left ankle x-ray indicates Normal mineralization. Old medial malleolus tip avulsion fracture fragment. No new acute fracture or dislocation. Small bone island in the talus. No concerning lytic or blastic lesion. Mild degenerative change at the tibiotalar joint. Achilles and plantar enthesopathy. No erosion or periosteal change. Soft tissues within normal limits. Diagnosis: Left lower extremity strain Consults: orthopedics (outpatient) as needed Patient Education/Shared MDM: Results of x-ray shared with patient. She is requesting a walking boot or splint upon time of discharge. Patient strongly advised to keep the splint on for only two weeks, as directly by the PA who originally evaluated pt. After splinting, pt's toes were checked for CWMS and were intact. Pt endorses range of motion in all her digits. She should follow-up with her PCP or orthopedics in two weeks. Pt declined any pain medication here in the ER. She will be discharged home with no new prescriptions. Strict return precautions provided. Patient verbalized understanding is in agreement with plan. Vital signs stable at time of discharge. All questions answered. <Imelda Mesa APRN - Last Filed: 08/11/24 19:30> Differential Diagnosis Differential diagnosis: Likely ankle sprain and strain, ankle fracture and other (R ankle Achilles tendon pain) <mIelda Mesa APRN - Last Filed: 08/11/24 19:30> Imaging Data Attestation: I personally reviewed and interpreted this imaging study as follows: <Imelda Mesa APRN - Last Filed: 08/11/24 19:30> Radiologist's impression: Impressions Ankle X-Ray 08/11/24 17:11 IMPRESSION: No acute osseous finding in the left ankle. <Imelda Humberto Mesa APRN - Last Filed: 08/11/24 19:30> Discharge Plan Discharge Clinical Impression: Ankle sprain and strain, Injury of right ankle <CATALINA Chase Last Filed: 08/11/24 16:58> Patient Disposition: Home, Self-Care <CATALINA Chase Last Filed: 08/11/24 16:58> Condition: Stable <CATALINA Chase Last Filed: 08/11/24 16:58> Instructions: Antibiotic Form <CATALINA Chase Filed: 08/11/24 16:58> Additional Instructions: Please return to the ER with an worsening symptoms. Follow-up with primary care provider or orthopedics in the next two weeks. Take all regular medications as prescribed. <CATALINA Chase Last Filed: 08/11/24 16:58> Patient Language: Burmese <CATALINA Chase Last Filed: 08/11/24 16:58> Prescriptions: No Action Rituxan 10 mg/mL Concentrate 1,000 mg IV [id number] Rx Instructions: 07/09/22 every 4 months, 2 weeks apart. Centrum Silver 0.4-300-250 mg-mcg-mcg Tablet 1 tablet PO DAILY cholecalciferol (vitamin D3) [Vitamin D3] 50 mcg (2,000 unit) Capsule 50 mcg PO DAILY estradiol 0.01 % (0.1 mg/gram) cream vaginal Wegovy 0.25 mg/0.5 mL pen injector 0.25 mg subcut WEEKLY Qty: 2 0RF Rx Instructions: administer weeks 1 through 4 of therapy Eliquis 5 mg tablet 5 mg PO BID Qty: 60 5RF <CATALINA Chase Last Filed: 08/11/24 16:58> Follow-up/Referrals: Kofi Powell MD [Primary Care Provider] - Héctor Ly MD [Physician] - (orthopedics) <CATALINA Chase Last Filed: 08/11/24 16:58> Time of Disposition: 19:28 <CATALINA Chase Filed: 08/11/24 16:58> 19:28 <Imelda Mesa APRN - Last Filed: 08/11/24 19:30>
--- OUTSIDE RECORDS SUMMARY | 2024-08-11 17:05 | XMS_ITS | CONTINUITY OF CARE DOCUMENT ---
Author Name hollie browne Address Unknown Organization [facility] Address [address] [place] [address] [address] [place] [address] Phone [phone] Care Team Providers Care Alligator Hunter Name Role Phone Allie CHINCHILLA, Balbir Unavailable [phone] MAKEDA HANCOCK MD Unavailable [phone] MAKEDA HANCOCK MD Unavailable INSURANCE PROVIDERS Payer name Policy type / Coverage type Vance red republican ID KAREY EDEN [id number] [facility] Commercial insurance [facility] [id number]
--- OUTSIDE RECORDS SUMMARY | 2024-08-11 17:05 | XMS_ITS | Continuity of Care Document ---
Author Organization [facility] Address [address] [place] [address] Phone Care Team Providers Care History Faculty Member Name Role Phone Jag Franz MD Unavailable [...] , [address], [place], [address], tel:[phone] [facility] No Information 3 Osei Rm. [address], [place], [place], [id number]. tel:[phone] OFFICE/OUTPA TIENT VISIT EST [facility] , [address], [place], [address], [place] tel:[phone] [facility] Follow up (chief complaint) Rheumatoid arthritis with positive rheumatoid factor, involving unspecified siteLong COVIDLow serum IgG for ageNasal congestion 3 Osei Hamsa. [address], [place], [place], [id number]. tel:[phone] Referring Provider: Vijaya Paul, [address], [place], [address]. tel:[phone] OFFICE/OUTPA TIENT VISIT EST [facility] , [address], [place], [address], [place] tel:[phone] [facility] Follow up (chief complaint) CVID (common variable immunodeficien cy)ThrombosisO rganizing pneumoniaRecur rent sinus infectionsRheu matoid arthritis with positive rheumatoid factor, involving unspecified siteVaccinatio n declined 2 Osei Hamsa. [address], [place], [place], [id number]. tel:[phone] OFFICE/OUTPA TIENT VISIT EST [facility] , [address], [place], [address], [place] tel:[phone] [facility] Follow up (chief complaint) CVID (common variable immunodeficien cy)Organizing pneumoniaRecur rent sinus infectionsRheu matoid arthritis with positive rheumatoid factor, involving unspecified siteThrombosis 2 Osei Hamsa. [address], [place], [place], [id number]. tel:[phone] [facility] , [address], [place], [address], [place] tel:[phone] [facility] hospital f/u (chief complaint) Chronic panethmoidal sinusitisOrgan izing pneumoniaCOVID Viral infectionCVID (common variable immunodeficien cy) 2 Osei Hamsa. [address], [place], [place], [id number]. tel:[phone] OFFICE/OUTPA TIENT VISIT [facility] , [address], [place], [address], [place] tel:[phone] [facility] Follow up (chief complaint) Rheumatoid arthritis with positive rheumatoid factor, involving unspecified siteChronic coughRecurrent sinus infections 2 Osei Hamsa. [address], [place], [place], [id number]. tel:[phone] Referring Provider: Vijaya Paul, [address], [place], [address]. tel:[phone] [facility] , [address], [place], [address], [place] tel:[phone] [facility] No Information 2 Osei Hamsa. [address], [place], [place], [id number]. tel:[phone] OFFICE/OUTPA TIENT VISIT NEW [facility] , [address], [place], [address], [place] tel:[phone] [facility] post covid cough (chief complaint) Chronic coughRecurrent sinus infectionsBody mass index [BMI] 26.0-26.9, adultRheumatoi d arthritis with positive rheumatoid factor, involving unspecified siteEncounter for tobacco use cessation counselingAcut e allergic rhinitis due to animal hair and dander 2 Osei Hamsa. [address], [place], [place], [id number]. tel:[phone] Referring Provider: Vijaya Paul, [address], [place], [address]. tel:[phone] Family History Family Member Type Diagnosis Age At Onset Problem Family history of Coronary a rtery disease Problem Family history of Diabetes m ellitus Immunizations Vaccine Date Status Comments SARS-COV-2 (COVID-19) vaccin e, mRNA, spike protein, LNP, preservative free, 30 mcg/0.3mL dose ([place]) administered Note: all 3 ; Source : Other Provider Payers Payer name Insurance type Covered libertarian ID Amanda darke(heather) [id number] Social History Type Description Quantity Date [...] up Initially seen a nd evaluated at [facility] where she was admitted with organizing pneumonia [...] told me she went to a [employer] libertarian and drank wine and the next day felt like she had gained a lot of water weight. She was worried about her kidneys. also her rheumatoid arthritis has been flaring up. She has been having mild joint aches and pains especially in the small joints of her hand. After her hospitalization patient has not gone back to seeing the nanotechnologist. According to patient a prior nanotechnologist had given her some kind of a [...] positive for influenza A comma move to [facility] tested positive for rhino and enterovirus, and [...] for the flu. Patient works for [employer] and had some kind of a reactive [...] fatigue. post covid cough Referred by her nanotechnologist Dr. 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 She has two dogs and two cats at home. She also has a hamster at home. She smokes about half a pack a day. Functional Status Date Functional Assessmen t No Information Instructions Date Instruction Additional Infor terence addendum , reviewed lab work from [facility] - normal CBC no eosinophils, neutrophil elevated t 7.7 , TSH normal, ALT AND ALK PHOS ELEAVTED Related to Recurrent sinus infections Giving encouragement to exercise Related to Body mass index [BMI] 26.0-26.9, adult Assessments Type Assessment Date No Information Patient Care Teams Name Effective Dates (start - stop) Status Members No Information
--- OUTSIDE RECORDS SUMMARY | 2024-08-11 17:05 | XMS_ITS | Clinical Summary ---
Author Organization [facility] Address [address] [place] [address] Care Team Providers Care Computer Discovery Teacher Name Role Phone Tai Murguia MD Primary Care Provider [phone] Source Comments [facility],non-owned Affiliates and Associated Physician Practices is amultiple site organization consisting of ambulatory clinics and hospital sitesin [place], [place], [place] and [place]. This disclosure is being madepursuant to the Care Everywhere program and may not contain all information available regarding this patient. Last updated 18.[facility] Allergies Active Allergy Reactions Criticality Noted Date Comments Codeine 12/07/2009 Medications * Be aware that medications may not be up to date on this document. Alwaysverify current medications with the patient. Medication Sig Dispensed Refills Start Date End Date Status famotidine (PEPCID) 40 MG tablet Take 1 Tab by mouth 2 times daily. 90 Tab 3 03/06/2010 Active Insulin Syringe-Needle U-100 (INSULIN SYRINGE 1CC/30GX5/16 ) 30G X 5/16 1 ML MISC Use. Use insulin syringe to inject SC heparin 0.65ml from the 20,000units/ml bottle. Adjust dose as directed by physician. Inject every 12 hours 60 Syringe 4 04/03/2010 Active heparin 20253 UNIT/ML injection Inject subcutaneously. Use insulin syringe to inject SC heparin 0.65ml every 12 hours from the 20,000units/ml bottle. Adjust dose as directed by physician. Dispense 8 bottles every month. 8 Vial 4 04/03/2010 Active Active Problems Problem Noted Date Diagnosed Date History of Retinal Vein Occlusion 12/28/2009 Overview (12/28/2009): In 08/2008, per progress note by Dr. Hilario. Supervision of other high-risk 010 Overview (04/24/2015): O+/I/-/- Consult only- Dr. Angie Zuluaga Neg pap Previous delivery, antepartum condition or complication 12/07/2009 Overview (12/07/2009): Hx of c/s x3 Advanced maternal age in 12/07/2009 Factor V Leiden mutation 12/07/2009 Overview (04/03/2010): heterozygote hx of Placental Abruption 12/07/2009 Overview (12/07/2009): G3 @ 23wk HCV Neg Tobacco dependence 12/07/2009 Family History Medical History Relation Name Comments CAD (Coronary Artery Disease) Father Diabetes Father Hypertension Father Diabetes Other aunts/uncles Hypertension Other aunts/uncles Relation Name Status Comments Father Other Social History Tobacco Use Types Packs/Day Years Used Date Smoking Tobacco: Every Day Cigarettes Alcohol Use Standard Drinks/Week Comments No 0 (1 standard drink = 0.6 oz pur e alcohol) Sex and Gender Information Value Date Recorded Sex Assigned at Not on file Gender Identity Not on file Sexual Orientation Not on file Last Filed Vital Signs Vital Sign Reading Time Taken Comments Blood Pressure 118/67 04/03/2010 9:00 AM CDT Pulse 86 03/06/2010 11:00 AM CDT Temperature - - Respiratory Rate - - Oxygen Saturation - - Inhaled Oxygen Concentration - - Weight 93.9 kg (207 lb) 04/03/2010 9:00 AM CDT Height - - Body Mass Index - - Plan of Treatment Health Maintenance Due Date Last Done Comments COLOGUARD (AGES 45-75) - COL ON CA SCREENING 1969 COLON MONITORING 1969 COLONOSCOPY - COLON CA SCREENING 1969 CT COLONOGRAPHY - COLON CA SCREENING 1969 Colorectal Cancer Screening 1969 FIT - COLON CA SCREENING 1969 FLEX SIG - COLON CA SCREENING 1969 LIPID TESTING 1969 MAMMOGRAM 1969 PAP SMEAR 1969 HIV SCREENING 1984 DTAP/TDAP/TD VACCINES (1 - Tdap) 1988 HEPATITIS B VACCINE (1 of 3 - 19+ 3-dose series) 1988 PNEUMOCOCCAL VACCINE (1 of 2 - PCV) 1988 PNEUMOCOCCAL VACCINE 50+ (1 of 1 - PCV) 12/14/2019 ZOSTER VACCINE (1 of 2) 12/14/2019 COVID-19 VACCINE (1 - 2023-2 5 season) 2024 INFLUENZA VACCINE (#1) 2024 DEPRESSION SCREENING 06/17/2024 HEPATITIS C SCREENING Completed 12/07/2009 HIB VACCINE Aged Out No longer eligi ble based on patient's age to complete this topic HPV VACCINE Aged Out No longer eligi ble based on patient's age to complete this topic MENINGOCOCCAL (Group B) VACCINE Aged Out No longer eligible based on patient's age to complete this topic MENINGOCOCCAL VACCINE Aged Out No les heydi eligible based on patient's age to complete this topic Procedures Procedure Name Priority Date/Time Associated Diagnosis Comments HEPATITIS C ANTIBODY Today 12/07/2009 2:30 PM CDT Suprv High-Risk Preg NEC from Last 3 Months or Most Recently Relevant to Health Maintenance Results * HEPATITIS C ANTIBODY (12/07/2009 2:30 PM CDT) Hepatitis C Antibody Screen Nonreactive Nonreactive [facility] BLOOD SPECIMEN / Unknown 12/07/2009 2:30 PM CDT 12/07/2009 3:03 PM CDT Angie Villafana MD LAB - CHEMISTRY ORD ERABLES [facility] [address] [place] [address] from Last 3 Months or Most Recently Relevant to Health Maintenance Care Teams Computer Discovery Teacher Relationship Specialty Start Date End Date Tai Murguia MD [address] [place] [address] PCP - General 02/21/18
--- OUTSIDE RECORDS SUMMARY | 2024-08-11 17:05 | XMS_ITS | Referral Summary ---
Author Organization [facility] Address [address] [place] [address] Care Team Providers Care Blacksmith Assistant Name Role Phone Tai Murguia MD Primary Care Provider [phone] Source Comments [facility],non-owned Affiliates and Associated Physician Practices is amultiple site organization consisting of ambulatory clinics and hospital sitesin [place], [place], [place] and [place]. This disclosure is being madepursuant to the Care Everywhere program and may not contain all information available regarding this patient. Last updated 18.[facility] Allergies Active Allergy Reactions Criticality Noted Date [...] hours 60 Syringe 4 04/03/2010 Active heparin 82318 UNIT/ML injection Inject subcutaneously. Use insulin syringe [...] @ 23wk HCV Neg Tobacco dependence 12/07/2009 Social History Tobacco Use Types Packs/Day Years [...] Mass Index - - Plan of Treatment Not on file Procedures Procedure Name Priority Date/Time Associated Diagnosis Comments HEPATITIS C ANTIBODY Today 12/07/2009 2:30 PM CDT Suprv High-Risk Preg NEC from Last 3 Months or Most Recently Relevant to Health Maintenance Results * HEPATITIS C ANTIBODY (12/07/2009 2:30 PM CDT) Pathologist [facility] Hepatitis C Antibody Screen Nonreactive Nonreactive [facility] BLOOD SPECIMEN / Unknown 12/07/2009 2:30 PM CDT 12/07/2009 3:03 PM CDT Angie Villafana MD LAB - CHEMISTRY ORD ERABLES [facility] [address] [place] [address] from Last 3 Months or Most Recently Relevant to Health Maintenance Care Teams Blacksmith Assistant Relationship Specialty Start Date End Date Tai Murguia MD [address] [place] [address] PCP - General 02/21/18
--- OUTSIDE RECORDS SUMMARY | 2024-08-11 17:05 | XMS_ITS | Referral Summary ---
Author Organization [facility] Address [address] [place] [address] Care Team Providers Care Machine Fitter Name Role Phone Kofi Powell MD Primary Care Provider Ricky Michel MD Unavailable [phone] Maribell Simeon MD Unavailable [phone] Allergies Active Allergy Reactions Criticality Noted Date Comments Codeine Rash Medium Penicillins Other (See comments) Low 03/28/2022 Patient unsure of reaction - father allergic Medications multivit sprbtfoz-khdu-Q A-calcium (THERA-M) 9 mg iron-400 mcg tabletIndicatio ns:Vitamin Deficiency Prevention Take 1 tablet by mouth nightly Active apixaban (ELIQUIS) 5 mg tablet Take 1 tablet (5 mg total) by mouth 2 (two) times a day Active riTUXimab (RITUXAN) 10 mg/mL injection Infuse into a venous catheter Last infusion 02/2023 Active acetaminophen (TYLENOL) 500 mg tablet Take 1 tablet (500 mg total) by mouth every 6 (six) hours as needed for pain 30 tablet 1 3 Active ergocalciferol (VITAMIN D) 50,000 unit capsule Take 1 capsule (50,000 Units total) by mouth once a week Active ibuprofen 200 mg tab/cap Take 1 tablet/capsule (200 mg total) by mouth every 6 (six) hours as needed for pain Active cyclobenzaprine (FLEXERIL) 5 mg tablet Take 1 tablet (5 mg total) by mouth 2 (two) times a day as needed for muscle spasms Active loperamide (IMODIUM) 2 mg capsule Take 1 capsule (2 mg total) by mouth 3 (three) times a day as needed for diarrhea 30 capsule 4 Active ondansetron (ZOFRAN) 4 mg tablet Take 1 tablet (4 mg total) by mouth 4 (four) times a day as needed for nausea or vomiting 20 tablet 4 Active estradioL (ESTRACE) 0.01 % (0.1 mg/gram) vaginal creamIndication s:Postmenopausa l atrophic vaginitis APPLY 06/20 APPLICATOR (1G) TO THE VAGINA 2-3 TIMES PER WEEK (SUCH SATURDAY//SATURDAY) 42.5 g 3 4 Active Active Problems Problem Noted Date Diagnosed Date Community acquired pneumonia 08/31/2023 Disrupted sleep-wake cycle 06/24/2023 Weight gain 06/24/2023 Colon cancer screening 05/13/2023 Bilateral otitis media with effusion 05/02/2023 Sensorineural hearing loss, bilateral 05/02/2023 Nasal obstruction 03/19/2023 Vaginal atrophy 03/18/2023 Pelvic floor dysfunction in female 03/18/2023 Weight loss counseling, encounter for 02/14/2023 Assessment & Plan (02/14/2023 7:16 PM CDT): Discussed that significant health benefits/risk reduction may be seen with even 5% weight loss. Discussed that weight loss will require calorie deficit. Calculated basal metabolic rate and estimated total energy expenditure; discussed 500-1000 kcal/day deficit to lose 1-2 lb per week. Asked to keep detailed food diary for at least 1 week and bring to next visit. Discussed setting SMART goals. Discussed relatively small, although significant, role of exercise in weight loss; greater importance in weight maintenance as shown in Look Ahead study and National Weight Control Registry. Discussed recommendation/goal for 150 minutes per week moderate-intensity aerobic exercise. Metabolic and nutritional disorder 02/14/2023 Assessment & Plan (02/14/2023 7:16 PM CDT): Labs. Discussed increased risk for DM in setting of obesity and FHx DM. Discussed insulin resistance including effect on weight and risk for progression to diabetes. Recommended low-carb, low-glycemic diet; choose whole grains and avoid more highly processed carbohydrates. Discussed potential benefits of this w/r/t gut microbiome. Referred to ADA and [employer] [employer] websites for additional information on topics including glycemic index/carbohydrate choices, protein sources. More detailed recommendations pending review of labs and food record. Class 1 obesity with serious comorbidity and body mass index (BMI) of 31.0 to 31.9 in adult 02/14/2023 Assessment & Plan (02/14/2023 7:17 PM CDT): Obesity worsening. General weight loss/lifestyle modification strategies discussed (elicit support from others; identify saboteurs; non-food rewards, etc). Diet interventions: as noted. Recommendations provided in AVS. Informal exercise measures discussed, e.g. taking stairs instead of elevator. Regular aerobic exercise program discussed. More detailed recommendations pending review of labs and food record. Fatigue 02/14/2023 Assessment & Plan (02/14/2023 7:15 PM CDT): Labs. Discussed importance of adequate sleep; good sleep hygiene in controlling weight as well as for overall health. Snores 02/14/2023 Assessment & Plan (02/14/2023 7:16 PM CDT): Discussed comorbidities associated with sleep apnea, including effects on weight, and stressed importance of adequate treatment if present. R Referral to sleep medicine. 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 12/14/2022 COVID-19 long hauler manifes ting chronic decreased mobility and endurance 12/14/2022 COVID-19 long hauler manifes ting chronic concentration deficit 12/14/2022 Vaccine counseling 12/14/2022 Atrial fibrillation (CMS/HCC) 10/26/2022 Fever 04/19/2022 Rheumatoid arthritis involving multiple sites (C MS/HCC) 04/19/2022 Pneumonia of right lower lobe due to infectious organism 04/19/2022 Rhinovirus infection 04/19/[address] 04/18/2022 Overview (04/20/2022): Added automatically from request for surgery [id number] Right upper lobe pulmonary nodule 06/10/2020 Overview (03/18/2023): Noted on CT scan from the emergency department the [facility]. 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 04/01/2019 Overview (03/18/2023): Added automatically from request for surgery [id number] FERNANDEZ (nonalcoholic steatohepatitis) 03/15/2019 Factor V Leiden 07/25/2018 Anxiety 03/14/2016 Retinal vein occlusion 12/28/2009 Overview (03/18/2023): In 08/2008, per progress note by Dr. Hilario. Overview: In 08/2008, per progress note by Dr. Hilario. In 08/2008, per progress note by Dr. Hilario. Placental abruption 12/07/2009 Overview (03/18/2023): G3 @ 23wk HCV Neg Previous delivery, antepartum condition or complication 12/07/2009 Overview (03/18/2023): Hx of c/s x3 Supervision of other high ri sk pregnancies, unspecified trimester 12/07/2009 Overview (03/18/2023): O+/I/-/- Consult only- Dr. Angie Zuluaga Neg pap Tobacco dependence 12/07/2009 Social History Tobacco Use Types Packs/Day Years Used Date Smoking Tobacco: Former Cigarettes Q uit: 03/17/2022 Smokeless Tobacco: Never Tobacco Cessation:Counseling Given: Not Answered Comments:1ppd since age 11 Alcohol Use Standard Drinks/Week Comments No 0 (1 standard drink = 0.6 oz pur e alcohol) [facility] Utilities Answer Date Recorded In the past 12 months has th e electric, gas, oil, or water company threatened to shut off services in your home? No 09/03/2023 Social Connection and Isolat ion Panel [NHANES] Answer Date Recorded In a typical week, how many times do you talk on the phone with family, friends, or neighbors? More than three times a week 09/03/2023 How often do you get togethe r with friends or relatives? More than three times a week 09/03/2023 How often do you attend chur ch or hoahaoism services? Never 09/03/2023 Do you belong to any clubs o r organizations such as restoration groups, unions, fraternal or athletic groups, or school groups? No 09/03/2023 How often do you attend meet ings of the clubs or organizations you belong to? Never 09/03/2023 Are you , , di vorced, , never , or living with a partner? 09/03/2023 AUDIT-C Answer Date Recorded Frequency of Alcohol Consumption Not on file 08/22/2023 Average Number of Drinks Not on file 024 Q3: How often do you have si x or more drinks on one occasion? Never 08/22/2023 Overall Financial Resource Strain (CARDIA) Answe r Date Recorded How hard is it for you to pa y for the very basics like food, housing, medical care, and heating? Not hard at all 09/03/2023 Hunger Vital Sign Answer Date Recorded Within the past 12 months, y ou worried that your food would run out before you got the money to buy more. Never true 09/03/19 24 Within the past 12 months, t he food you bought just didn't last and you didn't have money to get more. Never true 09/03/2023 PRAPARE - Transportation Answer Date Re corded In the past 12 months, has l ack of transportation kept you from medical appointments or from getting medications? No 08/15 In the past 12 months, has l ack of transportation kept you from meetings, work, or from getting things needed for daily living? No 09/03/2023 Housing Stability Vital Sign Answer Joel e Recorded In the last 12 months, was t here a time when you were not able to pay the mortgage or rent on time? No 09/03/2023 In the last 12 months, how many places have you lived? 1 09/03/2023 In the last 12 months, was t here a time when you did not have a steady place to sleep or slept in a fpc (including now)? No 09/03/2023 Personal Safety Answer Date Recorded Have you ever been in or are you currently in a harmful physical or emotional relationship or is someone making you feel afraid or unsafe? Denies 08/31/2023 Comments No Sex and Gender Information Value Date Recorded Sex Assigned at Not on file Legal Sex Female 8:24 PM SECURITY AND COMPLIANCE ANALYST Gender Identity Not on file Sexual Orientation Not on file Last Filed Vital Signs Vital Sign Reading Time Taken Comments Blood Pressure 97/59 09/05/2023 4:28 AM CDT Pulse 75 09/05/2023 4:28 AM CDT Temperature 36.4 C (97.6 F) 09/05/2023 4:28 AM CDT Respiratory Rate 18 09/05/2023 4:28 AM CDT Oxygen Saturation 97% 09/05/2023 4:28 AM CDT Inhaled Oxygen Concentration - - Weight 87.3 kg (192 lb 8 oz) 08/31/2023 4:23 AM CDT Height 167.6 cm (5' 6 ) 08/31/2023 4:23 AM CDT Body Mass Index 31.07 08/31/2023 4:23 AM CDT Plan of Treatment Scheduled Procedures Name Priority Associated Diagnoses Date/Ti me COLONOSCOPY Colon cancer screening Procedures Procedure Name Priority Date/Time Associated Diagnosis Comments HIGH RISK HPV DNA DETECTION WITH GENOTYPING Routine 05/13/2023 4:45 PM SECURITY AND COMPLIANCE ANALYST Cervical cancer screening from Last 3 Months or Most Recently Relevant to Health Maintenance Results * High Risk HPV DNA Detection with Genotyping (Molecular component) (05/13/2023 4:45 PM SECURITY AND COMPLIANCE ANALYST) HPV HR 16 Not Detected Not Detected [facility] HPV HR 18 Not Detected Not Detected [facility] HPV HR Non 16/18 Not Detected Not Detected [facility] Comment: Interpretive Data Nucleic acid amplification for detection of high-risk Human Papilloma virus (HPV) is performed by the Samantha Kristina 6800 HPV test. This assay specifically detects HPV-16 and HPV-18 genotypes. The following HPV genotypes are detected as high-risk HPV: HPV-31, 33, 35, ,39, 45, 51, 52, 56, 58, 59, 66, and 68. This assay has been approved by the [place] Food and Drug Administration for detection of HPV in cervical specimens collected by a physician using an endocervical brush/spatula or cervical broom and placed in the ThinPrep Pap Test PreservCyt collection containers. The performance characteristics of this test have been verified by the [facility] Molecular Infectious Disease laboratory. Correlate with separately reported cytology results, as applicable. Interpretive data last revised 22 Endocervical 05/13/2023 4:45 PM SECURITY AND COMPLIANCE ANALYST 05/14/2023 1:27 PM SECURITY AND COMPLIANCE ANALYST Narrative [facility] - 05/15/2023 6:46 AM SECURITY AND COMPLIANCE ANALYST Clinical history and diagnosis->screening Number of vials->1 Testing type->Screening Last menstrual period (date if known)->unk Menstrual status->Postmenopausal us Jyotsna Espinosa MD LAB BODY FLUID S AND STOOLS ORDERABLES Final Result [facility] Department [place] [address] from Last 3 Months or Most Recently Relevant to Health Maintenance Insurance [facility] HMO/PPO Address: [id number] [place] [id number] [facility] [place] [address] [facility] HMO/PPO Address[address] [place] [phone] [place] [address] [facility] HMO/PPO Address: [address] [place] [phone] [facility] [place] [address] Advance Directives For more information, please contact: [phone] * Full Code (Latest Code Status on File) Date Activated Date Inactivated Comments 08/31/2023 4:14 AM 09/05/2023 4:44 PM * Full Code Date Activated Date Inactivated Comments 04/19/2022 2:26 PM 04/25/2022 4:03 PM Care Teams Machine Fitter Relationship Specialty Start Date End Date Kofi Powell MD [address] [facility] [address] [place] [address] PCP - General Family Medicine 04/21/22 Ricky Michel MD [address] [place] [address] Consulting Physician Internal Medicine 04/25/22 Maribell Simeon MD [address] [place] [address] Consulting Physician Otolaryngology 05/22/23 Betzy Hannah [facility] [address] [facility] [address] [facility] Nurse Practitioner Infectious Diseases 12/10/22
--- OUTSIDE RECORDS SUMMARY | 2024-08-11 17:05 | XMS_ITS | Clinical Summary ---
Author Organization [facility] Address [address] [place] [address] Care Team Providers Care Dormitory Counselor Name Role Phone Kofi Powell MD Primary Care Provider Ricky Michel MD Unavailable [phone] Maribell Simeon MD Unavailable [phone] Allergies Active Allergy Reactions Criticality Noted Date Comments Codeine Rash Medium Penicillins Other (See comments) Low 03/28/2022 Patient unsure of reaction - father allergic Medications multivit pahoxgje-hfpp-H A-calcium (THERA-M) 9 mg iron-400 mcg tabletIndicatio [...] as needed for pain 30 tablet 1 Active ergocalciferol (VITAMIN D) 50,000 unit capsule [...] w/r/t gut microbiome. Referred to ADA and [place] [employer] websites for additional information on topics including [...] (04/20/2022): Added automatically from request for surgery [id number] Right upper lobe pulmonary nodule 06/10/2020 Overview (03/18/2023): Noted on CT scan from the emergency department the [facility]. 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 04/01/2019 Overview (03/18/2023): Added automatically from request for surgery [id number] FERNANDEZ (nonalcoholic steatohepatitis) 03/15/2019 Factor V Leiden [...] Angie Zuluaga Neg pap Tobacco dependence 12/07/2009 Surgical History Surgery Date Site/Laterality Comments SECTION TUBAL LIGATION CHOLECYSTECTOMY LUNG BIOPSY Medical History Medical History Date Comments Rheumatoid arthritis (HCC) Factor 5 Leiden mutation, heterozygous (HCC) Anxiety HL (hearing loss) Mar 2 or 9 Dizziness Ocassionally when be nding over Nosebleed Mar GERD (gastroesophageal reflu x disease) Mar Tinnitus Years ago TMJ dysfunction 2017 Long COVID Paroxysmal atrial fibrillati on (CMS/HCC) (HCC) COVID related by report DVT (deep venous thrombosis) (CMS/HCC) (HCC) Right upper extremity related to a PICC line Family History Medical History Relation Name Comments Cancer Father [place] Diabetes Father [place] Heart disease Father [place] Hypertension Father Artemio Stroke Father Artemio Hearing loss Mother Gretel Hypertension Mother Gretel Osteoporosis Mother Gretel Diabetes Mother's Brother Roberto Carlos Breast cancer Mother's Sister 1 Cancer Mother's Sister 2 Aziza Asthma Paternal Grandmother Luthera Anesthesia problems Neg Hx Colon cancer Neg Hx Ovarian cancer Neg Hx Uterine cancer Neg Hx Relation Name Status Comments Father [place] Mother Gretel Alive Mother's Brother Roberto Carlos Mother's Sister 1 Mother's Sister 2 Aziza Paternal Grandmother Luthera Social History Tobacco Use Types Packs/Day Years Used Date Smoking Tobacco: Former Cigarettes Q uit: 03/17/2022 Smokeless Tobacco: Never Tobacco Cessation:Counseling Given: Not Answered Comments:1ppd since age 11 Alcohol Use Standard Drinks/Week Comments No 0 (1 standard drink = 0.6 oz pur e alcohol) [employer] Utilities Answer Date Recorded In the past 12 months has e electric, gas, oil, or water [employer] threatened to shut off services in your [...] often do you attend chur ch or druze services? Never 09/03/2023 Do you belong to any clubs o r organizations such as taoist groups, unions, fraternal or athletic groups, or [...] on file Legal Sex Female 8:24 PM NEURO PSYCH SALES SPECIALIST Gender Identity Not on file Sexual Orientation Not on file Obstetrics History Para Term AB IAB SAB Ectopic Multiple Livin g Live Births 4 4 3 1 3 4 Date Outcome GA Total Labor Labor/2nd/3rd Weight Sex Type Anes PTL Cecilia A1 A5 Name Clin 1995 Term 42w 0d F C-S j incis Livin g Comments:failed IOL 2000 Term 39w 0d M C-S j incis Livin g 2004 23w 0d C-S j incis Neona farrah Demis e Comments:abruption, st illbirth 2009 Term F C-Sect ion Livin g Last Filed Vital Signs Vital Sign Reading [...] Diagnoses Date/Ti me COLONOSCOPY Colon cancer screening Health Maintenance Due Date Last Done Comments Breast Cancer Screening-Mammogram 1969 Colon Cancer Screening-Colonoscopy 1969 Depression Screening 1969 Hepatitis C Screening 1969 DTaP/Tdap/Td Vaccine (1 - Tdap) 1980 Hepatitis B Screening 12/14/1987 Pneumococcal vaccine <65 (1 of 2 - PCV) 1988 Zoster Vaccine (1 of 2) 1988 Covid-19 Vaccine (2 - Pfizer risk series) 03/30/2022 03/09/2022 Influenza Vaccine (#1) 2024 07/29/2017, 2016 Cervical Cancer Screening 05/13/2024 05/13/2023, Regular Well Visit/Exam 18-64 05/13/2024 05/13/2023 Procedures Procedure Name Priority Date/Time Associated Diagnosis Comments HIGH RISK HPV DNA DETECTION WITH GENOTYPING Routine 05/13/2023 4:45 PM NEURO PSYCH SALES SPECIALIST Cervical cancer screening from Last 3 Months or Most Recently Relevant to Health Maintenance Results * High Risk HPV DNA Detection with Genotyping (Molecular component) (05/13/2023 4:45 PM NEURO PSYCH SALES SPECIALIST) HPV HR 16 Not Detected Not Detected [facility] HPV HR 18 Not Detected Not Detected [facility] HPV HR Non 16/18 Not Detected Not Detected [facility] Comment: Interpretive Data Nucleic acid amplification for [...] this test have been verified by the [facility] Molecular Infectious Disease laboratory. Correlate with separately reported cytology results, as applicable. Interpretive data last revised 22 Endocervical 05/13/2023 4:45 PM NEURO PSYCH SALES SPECIALIST 05/14/2023 1:27 PM NEURO PSYCH SALES SPECIALIST Narrative [facility] - 05/15/2023 6:46 AM NEURO PSYCH SALES SPECIALIST Clinical history and diagnosis->screening Number of vials->1 Testing type->Screening Last menstrual period (date if known)->unk Menstrual status->Postmenopausal us Jyotsna Espinosa MD LAB BODY FLUID S AND STOOLS ORDERABLES Final Result [facility] Department [place] [address] from Last 3 Months or Most Recently Relevant to Health Maintenance Insurance [facility] HMO/PPO Address: [address] [place] [phone] [facility] HMO/PPO Address: [phone] [place] [phone] [facility] [place] [address] [facility] HMO/PPO Address: [address] [place] [phone] [facility] [place] [address] Advance Directives For more information, please contact: [phone] * Full Code (Latest Code Status on File) Date Activated Date Inactivated Comments 08/31/2023 4:14 AM 09/05/2023 4:44 PM * Full Code Date Activated Date Inactivated Comments 04/19/2022 2:26 PM 04/25/2022 4:03 PM Care Teams Dormitory Counselor Relationship Specialty Start Date End Date Kofi Powell MD [address] [address] PCP - General Family Medicine 04/21/22 Ricky Michel MD [address] [facility] [address] [place] [address] Consulting Physician Internal Medicine 04/25/22 Maribell Simeon MD [address] [place], [place] [id number] Consulting Physician Otolaryngology 05/22/23 Betzy Hannah E BUSINESS SPECIALIST [address] [facility] [address] [employer] Infectious Diseases 12/10/22
--- OUTSIDE RECORDS SUMMARY | 2024-08-11 17:05 | XMS_ITS | Patient Health Summary ---
Author Organization [facility] Address [address] [place] [address] Care Team Providers Care Neon Sign Servicer Name Role Phone Tai Murguia MD Primary Care Provider [phone] Note from [facility],non-owned Affiliates and Associated Physician Practices is amultiple site organization consisting of ambulatory clinics and hospital sitesin [place], [place], [place] and [place]. This disclosure is being madepursuant to the Care Everywhere program and may not contain all information available regarding this patient. Last updated 18.[facility] Allergies * Codeine Medications * Be aware that medications may not be up to date on this document. Alwaysverify current medications with the patient. * famotidine (PEPCID) 40 MG tablet(Started 03/06/2010) Take 1 Tab by mouth 2 times daily. 3 refills left * Insulin Syringe-Needle U-100 (INSULIN SYRINGE 1CC/30GX5/16 ) 30G X 5/16 1 ML MISC(Started 04/03/2010) Use. Use insulin syringe to inject SC heparin 0.65ml from the 20,000units/ml bottle. Adjust dose asdirected by physician. Inject every 12 hours 4 refills left * heparin 84598 UNIT/ML injection(Started 04/03/2010) Inject subcutaneously. Use insulin syringe to inject SC heparin 0.65ml every 12 hours from the 20,000units/ml bottle. Adjust dose as directed by physician. Dispense 8 bottles every month. 4 refills left Active Problems Problem Noted Date Diagnosed Date History of Retinal Vein Occlusion 12/28/2009 Supervision of other high-risk 010 Previous delivery, antepartum condition or complication 12/07/2009 Advanced maternal age in 12/07/2009 Factor V Leiden mutation 12/07/2009 hx of Placental Abruption 12/07/2009 Tobacco dependence 12/07/2009 Social History Tobacco Use [...] - - Body Mass Index - - Procedures * BIOPHYSICAL PROFILE W NST(Performed 04/17/2010) Performed for hx of Placental Abruption, Factor V Leiden mutation (HCC) * GLUCOSE PROTEIN KETONE URINE - POINT OF CAR(Performed 04/03/2010) * BIOPHYSICAL PROFILE W NST(Performed 04/03/2010) Performed for hx of Placental Abruption, Factor V Leiden mutation (HCC) * BIOPHYSICAL PROFILE W NST(Performed 03/29/2010) Performed for hx of Placental Abruption, Factor V Leiden mutation (HCC) * BIOPHYSICAL PROFILE W NST(Performed 03/20/2010) Performed for hx of Placental Abruption, Factor V Leiden mutation (HCC) * SONOGRAM - COMPLETE(Performed 03/13/2010) * GLUCOSE PROTEIN KETONE URINE - POINT OF CAR(Performed 03/06/2010) * BIOPHYSICAL PROFILE W NST(Performed 03/06/2010) Performed for hx of Placental Abruption, Factor V Leiden mutation (HCC) * BIOPHYSICAL PROFILE W NST(Performed 02/27/2010) Performed for hx of Placental Abruption, Factor V Leiden Mutation (HCC) * BIOPHYSICAL PROFILE W NST(Performed 02/13/2010) * HEPARIN ANTI-XA LMWH(Performed 01/18/2010) * GLUCOSE PROTEIN KETONE URINE - POINT OF CAR(Performed 01/18/2010) * SONOGRAM - COMPLETE(Performed 01/18/2010) * GLUCOSE PROTEIN KETONE URINE - POINT OF CAR(Performed 12/28/2009) * CYCLIC CITRULLINATED PEPTIDE(CCP) AB IGG(Performed 12/07/2009) Performed for Suprv High-Risk Preg NEC * HEPATITIS C ANTIBODY(Performed 12/07/2009) Performed for Suprv High-Risk Preg NEC * COMPREHENSIVE METABOLIC PANEL(Performed 12/07/2009) Performed for Suprv High-Risk Preg NEC * BETA-2 GLYCOPROTEIN 1 ANTIBODY IGG/IGM PANEL(Performed 12/07/2009) Performed for Suprv High-Risk Preg NEC * ANTITHROMBIN III ACTIVITY(Performed 12/07/2009) Performed for Suprv High-Risk Preg NEC * PROTEIN S ANTIGEN FREE(Performed 12/07/2009) Performed for Suprv High-Risk Preg NEC * PROTEIN C ACTIVITY(Performed 12/07/2009) Performed for Suprv High-Risk Preg NEC * LUPUS ANTICOAGULANT PANEL W RFLX(Performed 12/07/2009) Performed for Suprv High-Risk Preg NEC * CARDIOLIPIN ANTIBODY IGG/IGM PANEL(Performed 12/07/2009) Performed for Suprv High-Risk Preg NEC * GLUCOSE PROTEIN KETONE URINE - POINT OF CAR(Performed 12/07/2009) * SONOGRAM - COMPLETE(Performed 12/07/2009) Results * BIOPHYSICAL PROFILE W NST (04/17/2010) Only the most recent of7 resultswithin the time period is included. Anatomical Region Laterality Modality Other Sheri Carballo MD [facility] ORDERABLES * GLUCOSE PROTEIN KETONE URINE - POINT OF CAR (04/03/2010 9:20 AM CDT) Only the most recent of5 resultswithin the time period is included. Glucose UA neg Negative [facility] Protein UA 1+ Negative [facility] Ketone UA neg Negative [facility] QC Verified yes Yes [facility] POC T TESTING Urine specimen (specimen) URINE / Unknown 04/03/2010 9:20 AM CDT Xiomy Parikh MD LAB - POINT OF CARE ORDERABLES [place] [address] * SONOGRAM - COMPLETE (03/13/2010) Only the most recent of3 resultswithin the time period is included. Anatomical Region Laterality Modality Other Alessio Light MD [facility] ORDERABLES * (ABNORMAL) HEPARIN ANTI-XA LMWH (01/18/2010 4:00 PM CDT) Heparin Xa Low Molecular Weight 0.14 U/ML(L) 0.6 - 1.2 U/ml [facility] Comment Normals have been established using plastic tube containing 3.2% Sodium Citrate. [facility] Comment Ref Lab [facility] Comment: therapeutic range for heparin 0.6 - 1,2 U/ML, based on enoxaparin brand low molecular weight heparin LMW Ref Range [facility] Comment: Normal Range <0.01 U/mL Therapeutic Range for Heparin 0.6-1.2 U/mL Based on Enoxaparin brand Low Molecular Weight Heparin BLOOD SPECIMEN / Unknown 01/18/2010 4:00 PM CDT 01/18/2010 5:17 PM CDT Narrative Resulting Agency Comment [place] [address] Sheri Carballo MD LAB - SEROLOGY ORDEdwina PANTOJA Performing Organization Address City/[facility] Co de Phone Number [facility] [address] [place] [phone] * CARDIOLIPIN ANTIBODY PANEL (12/07/2009 2:30 PM CDT) Cardiolipin Antibody IgG 1.87 <[address] [facility] Cardiolipin Antibody IgM 7.81 <[address] [facility] BLOOD SPECIMEN / Unknown 12/07/2009 2:30 PM CDT 12/07/2009 3:03 PM CDT Angie Villafana MD LAB - SEROLOGY ORDEdwina PANTOJA Performing Organization Address City/[facility] Co de Phone Number [facility] [address] [place] [phone] * (ABNORMAL) LUPUS ANTICOAGULANT PANEL (12/07/2009 2:30 PM CDT) PT (Lupus Anticoag) 11.7(L) 12.0 - 15.[address] [facility] PTT Lupus Anticoagulant 44 32 - [address] [facility] dRVVT 29(L) 33 - [address] [facility] Thrombin Time Not Applicable 14.7 - 19.[address] [facility] Reptilase Time Not Applicable <=22.[address] [facility] PTT Heparin Neutralized Not Applicable 32 - 48 [facility] PTT 1/1 Mix Not Applicable 32 - [address] [facility] Platelet Neutralization Not Applicable Negative sec [facility] dRVVT 1:1 Mix Not Applicable 33 - [address] [facility] dRVVT Confirmatory Test Not Applicable Negative [facility] Hexagonal Phospholipid Neutral Not Applicable Negative [facility] Interpretation Lupus Anticoagulant See Note [facility] Comment Ref Lab [facility] Comment: Comments and Normal Ranges for Component *Lupus Anticoag Interp Lupus anticoagulant not detected. The phospholipid-dependent screening tests (PTT, DRVVT) are not prolonged. Lupus anticoagulant antibodies are heterogeneous and antibody titers fluctuate over time. Laboratory tests used to identify lupus anticoagulants demonstrate variable sensitivity. If there is strong clinical suspicion for antiphospholipid antibody syndrome (APS), consider testing for cardiolipin and beta-2 glycoprotein 1 antibodies (IgG and IgM) if this testing has not already been performed. BLOOD SPECIMEN / Unknown 12/07/2009 2:30 PM CDT 12/07/2009 3:03 PM CDT Narrative Resulting Agency Comment Performed By [employer] [address] Angie Villafana MD LAB - HEMATOLOGY OR DERABLES Performing Organization Address City/State/[facility] Co de Phone Number [facility] [address] [place] [address] * (ABNORMAL) PROTEIN S FREE (12/07/2009 2:30 PM CDT) Pathologist [facility] Protein S Antigen, Free 54(L) 57 - 131 % [facility] Comment Ref Lab [facility] Comment: Comments and Normal Ranges for Component Protein S, Free(%) INTERPRETATION/ Protein S, Functional Patients on oral anticoagulants will have decreased functional protein C/S values. Patients should be off oral anticoagulant therapy for two weeks for accurate measurement of functional protein C/S levels. Interfering Factors/ Artifactually decreased functional protein C/S values may be seen in patients with abnormally elevated levels of factor VIII. Artifactually elevated levels of functional protein C/S may be seen in patients receiving heparin therapy. BLOOD SPECIMEN / Unknown 12/07/2009 2:30 PM CDT 12/07/2009 3:03 PM CDT Narrative Resulting Agency Comment Performed By [facility] Lab [address] [place], [place] [address] Angie Villafana MD LAB - COAGULATION O RDERABLES Performing Organization Address City/[facility]/ZIP Co de Phone Number [facility] [address] [place] [phone] * PROTEIN C ACTIVITY (12/07/2009 2:30 PM CDT) Pathologist [facility] Protein C Activity 51 U/DL [facility] Comment reference range- [address] [facility] BLOOD SPECIMEN / Unknown 12/07/2009 2:30 PM CDT 12/07/2009 3:03 PM CDT Narrative Resulting Agency Comment Performed By [address] [address] Angie Villafana MD LAB - COAGULATION O RDERAALEXI Performing Organization Address [facility] Co de Phone Number [facility] [address] [place] [phone] * BETA-2 GLYCOPROTEIN 1 ANTIBODY IGG/IGM PANEL (12/07/2009 2:30 PM CDT) Beta-2 Glycoprotein Antibody IgG 1 0 - [address] [facility] Beta-2 Glycoprotein Antibody IgM 7 0 - [address] [facility] Comment Ref Lab [facility] Comment: Comments and Normal Ranges for Component B-2 Glyco 1 Ab, IgM(SMU) TEST INFORMATION/ Beta-2 Glycoprotein I Abs, IgG and IgM An IgG and/or IgM result of greater than 20 SGU and/or SMU on at least two occasions and at least 12 weeks apart is suggestive of antiphospholipid syndrome. Diagnosis should NOT be made solely on the basis of a single specimen. BLOOD SPECIMEN / Unknown 12/07/2009 2:30 PM CDT 12/07/2009 3:03 PM CDT Narrative Resulting Agency Comment Performed By [facility] [facility] Lab [address] [place], [place] [address] Angie Villafana MD LAB - CHEMISTRY ORD ERABLES Performing Organization Address [facility] Co de Phone Number [facility] [address] [place] [phone] * ANTITHROMBIN III ACTIVITY (12/07/2009 2:30 PM CDT) Pathologist [facility] AT III Activity 95 U/DL 80 - 150 [facility] Comment Reference Range- 85 - 130 [facility] BLOOD SPECIMEN / Unknown 12/07/2009 2:30 PM CDT 12/07/2009 3:03 PM CDT Narrative Resulting Agency Comment Performed By [address] [place] [address] Angie Villafana MD LAB - COAGULATION O RDERABLES Performing Organization Address [facility] Co de Phone Number [facility] [address] [place] [phone] * CYCLIC CITRUL PEPTIDE AB IGG (CCP) (12/07/2009 2:30 PM CDT) Pathologist [facility] Cyclic Citrullinated Peptide Antibody IgG 0.23 <[address] [facility] BLOOD SPECIMEN / Unknown 12/07/2009 2:30 PM CDT 12/07/2009 3:03 PM CDT Angie Villafana MD LAB - CHEMISTRY ORD ERABLES Performing Organization Address [facility] Co de Phone Number [facility] [address] [place] [address] * (ABNORMAL) COMPREHENSIVE METABOLIC PANEL (12/07/2009 2:30 PM CDT) Sodium 136(L) 137 - 145 mmol/L [facility] Potassium 3.8 3.6 - 5.0 mmol/L [facility] Chloride 104 98 - 107 mmol/L [facility] BUN 10 7 - 17 mg/dl [facility] Creatinine 0.62 0.52 - 1.04 mg/dl [facility] Glucose 81 65 - 105 mg/dl [facility] Calcium 8.8 8.4 - 10.2 mg/dl [facility] Alkaline Phosphatase 56 38 - 126 U/L [facility] AST 27 8 - 39 U/L [facility] Bilirubin Total 0.2 0.2 - 1.3 mg/dl [facility] Protein Total 7.1 6.3 - 8.2 gm/dl [facility] Albumin 3.7(L) 3.9 - 5.0 gm/dl [facility] CO2 24 22 - 30 mmol/L [facility] ALT 29 9 - 52 U/L [facility] eGFR by MDRD 107 >60 mL/min/1.[address] [facility] Comment eGFR [facility] Comment: The eGFR does not apply to patients who are younger than 18 or older than 70. BLOOD SPECIMEN / Unknown 12/07/2009 2:30 PM CDT 12/07/2009 3:03 PM CDT Angie Villafana MD LAB - CHEMISTRY ORD ERABLES Performing Organization Address City/[facility] Co de Phone Number [facility] [address] [place] [phone] * HEPATITIS C ANTIBODY (12/07/2009 2:30 PM CDT) Hepatitis C Antibody Screen Nonreactive Nonreactive [facility] BLOOD SPECIMEN / Unknown 12/07/2009 2:30 PM CDT 12/07/2009 3:03 PM CDT Angie Villafana MD LAB - CHEMISTRY ORD ERABLES Performing Organization Address City/[facility]/ZIP Co de Phone Number [facility] [address] [place] [address] Care Teams Neon Sign Servicer Relationship Specialty Start Date End Date Tai Murguia MD [address] [place] [phone] PCP - General 02/21/18
--- OUTSIDE RECORDS SUMMARY | 2024-08-11 17:05 | XMS_ITS | Clinical Summary ---
Author Organization [facility] Address [address] [place] [address] Phone Care Team Providers Care Property Field Adjuster Name Role Phone Tai Murguia MD Primary Care Provide r Allergies Active Allergy Reactions Criticality Noted Date Comments Penicillins Unknown 11/26/2018 As a child Medications predniSONE (DELTASONE) 10 mg tablet Take 10 mg by mouth 1 time daily as needed. Active multivitamin (DAILY-VAUGHN) tablet Take 1 Tablet by mouth daily. Active varenicline (Chantix) 1 mg Tablet Take 1 Tablet (1 mg) by mouth 2 times daily. 60 Tablet 3 0 Active nicotine (NICODERM CQ) 14 mg/24 hr patch Apply 1 Patch to skin as directed every 24 hours. 28 Patch 2 0 Active abatacept (ORENCIA) 250 mg Recon Soln Inject by intraveous injection. Active ibuprofen-famot idine (Duexis) 800-26.6 mg Tablet Take by mouth. Activ e OTHER Arbonne shakes daily Active FOLIC ACID ORAL Take by mouth. Active hydrOXYchloroQU INE (PLAQUENIL) 200 mg tablet Take 200 mg by mouth. Active cholecalciferol , vitamin D3, (VITAMIN D3 ORAL) Take by mouth. Activ e varenicline (CHANTIX) 0.5 mg (11)- 1 mg (42) tablets STARTER dose pack Take as directed on package. 53 Tablet 0 Active Active Problems No known active problems Family History Medical History Relation Name Comments Diabetes Brother Diabetes Father Heart Failure Father Hypertension Father Cancer Maternal Aunt Asthma Paternal Grandmother Emphysema Paternal Grandmother Lung Cancer Paternal Uncle Bronchitis Neg Hx Mesothelioma Neg Hx Relation Name Status Comments Brother Father Maternal Aunt Paternal Grandmother Paternal Uncle Social History Tobacco Use Types Packs/Day Years Used Date Smoking Tobacco: Some Days Smokeless Tobacco: Never Comments:Using nicorette gum Comments Unknown Sex and Gender Information Value Date Recorded Sex Assigned at Not on file Legal Sex Female 2:52 AM FEED MIXER HELPER Gender Identity Not on file Sexual Orientation Not on file Last Filed Vital Signs Vital Sign Reading Time Taken Comments Blood Pressure 102/68 08/25/2019 1:00 PM CDT Pulse 78 08/25/2019 1:00 PM CDT Temperature - - Respiratory Rate 16 08/25/2019 1:00 PM CDT Oxygen Saturation 96% 08/25/2019 1:00 PM CDT Inhaled Oxygen Concentration - - Weight 86.2 kg (190 lb) 04/20/2020 10:52 AM FEED MIXER HELPER Height 167.6 cm (5' 6 ) 04/20/2020 10:52 AM FEED MIXER HELPER Body Mass Index 30.67 04/20/2020 10:52 AM FEED MIXER HELPER Plan of Treatment Health Maintenance Due Date Last Done Comments DTAP/TDAP/TD VACCINES (1 - Tdap) 1988 HEPATITIS B VACCINES (1 of 3 - 19+ 3-dose series) 11/16 PNEUMOCOCCAL VACCINE 0-64 YEARS (1 of 2 - PCV) 989 ZOSTER VACCINE (1 of 2) 1988 CERVICAL CANCER SCREENING 12/14/1999 BREAST CANCER SCREENING 2009 COLORECTAL SCREENING 2014 Colorectal Cancer Screening 2014 FIT-DNA Q 3 years 2014 FIT/FOBT Q 1 year 2014 Flex Sig/CT Colonography Q 5 years 2014 INFLUENZA VACCINE (#1) 2024 Insurance [facility] [employer] PPO [id number] Care Teams Property Field Adjuster Relationship Specialty Start Date End Date Tai Murguia MD PCP - General Internal Medicine 11/26/18
--- OUTSIDE RECORDS SUMMARY | 2024-08-11 17:05 | XMS_ITS | Clinical Summary ---
Author Organization [facility] Address [address] [place] [address] Phone Care Team Providers Care Perlite Grinder Name Role Phone Provider, None Primary Care Provider Unavailabl e Allergies Active Allergy Reactions Criticality Noted Date Comments Codeine Hives 12/17/2021 Penicillins Unknown 12/17/2021 Medications No known medications Social History Tobacco Use Types Packs/Day Years Used Date Smoking Tobacco: Never Alcohol Use Standard Drinks/Week Comments Yes 0 (1 standard drink = 0.6 oz pur e alcohol) Comments Unknown Sex and Gender Information Value Date Recorded Sex Assigned at Not on file Legal Sex Female 3:17 PM CDT Gender Identity Not on file Sexual Orientation Not on file Last Filed Vital Signs Vital Sign Reading Time Taken Comments Blood Pressure 104/64 12/17/2021 7:15 PM CDT Pulse 77 12/17/2021 7:15 PM CDT Temperature 35.9 C (96.6 F) 12/17/2021 3:23 PM CDT Respiratory Rate 19 12/17/2021 7:15 PM CDT Oxygen Saturation 98% 12/17/2021 7:15 PM CDT Inhaled Oxygen Concentration - - Weight 74.4 kg (164 lb) 12/17/2021 3:20 PM CDT Height 167.6 cm (5' 6 ) 12/17/2021 3:20 PM CDT Body Mass Index 26.47 12/17/2021 3:20 PM CDT Plan of Treatment Health Maintenance Due Date Last Done Comments Mammogram 1969 TdaP Immunization 1969 Hepatitis B Immunization (1 of 3 - 19+ 3-dose series) 1988 Pap Smear 1990 Cervical Cancer Screening (CCS) 12/14/1999 HPV/Cotest 12/14/1999 Colonoscopy 2014 Colorectal Cancer Screening 2014 Cologuard 12/14/2019 Immunochemical Fecal Occult Blood 12/14/2019 Pneumococcal Immunization (5 0+ years) (1 of 1 - PCV) 12/14/2019 Zoster Immunization (1 of 2) 12/14/2019 Influenza Immunization (#1) 2024 SARS-COV-2 Immunization (2 - season) 2024 03/09/2022 Respiratory Syncytial Virus (RSV) Immunization (Adult) (1 - 1-dose 75+ series) 2044 Hepatitis C Virus (HCV) Screening Completed 022 Meningococcal Immunization (ACWY) Aged Out No longer eligible based on patient's age to complete this topic Pneumococcal Immunization Combined Aged Out No longer eligible based on patient's age to complete this topic Rotavirus Immunization Aged Out No lo nger eligible based on patient's age to complete this topic Insurance [facility] Care Teams Perlite Grinder Relationship Specialty Start Date End Date Provider, None [place] PCP - General 12/17/21
[2024-08-11 18:30] VITALS: BP 112/69; PULSE 78; RESP 16; O2SAT 100
--- OUTSIDE RECORDS SUMMARY | 2024-08-11 19:29 | XMS_ITS | Referral Summary ---
Author Organization [facility] Address [address] [place] [address] Care Team Providers Care Tool Crib Attendant Name Role Phone Tai Murguia MD Primary Care Provider [phone] Source Comments [facility],non-owned Affiliates and Associated Physician Practices is amultiple site organization consisting of ambulatory clinics and hospital sitesin [place], [place], [place] and [place]. This disclosure is being madepursuant to the Care Everywhere program and may not contain all information available regarding this patient. Last updated 18.[facility] Allergies Active Allergy Reactions Criticality Noted Date [...] hours 60 Syringe 4 04/03/2010 Active heparin 96233 UNIT/ML injection Inject subcutaneously. Use insulin syringe [...] C ANTIBODY (12/07/2009 2:30 PM CDT) Pathologist [facility] Hepatitis C Antibody Screen Nonreactive Nonreactive [facility] BLOOD SPECIMEN / Unknown 12/07/2009 2:30 PM CDT 12/07/2009 3:03 PM CDT Angie Villafana MD LAB - CHEMISTRY ORD ERABLES [facility] [address] [place] [address] from Last 3 Months or Most Recently Relevant to Health Maintenance Care Teams Tool Crib Attendant Relationship Specialty Start Date End Date Tai Murguia MD [address] [place] [address] PCP - General 02/21/18
--- OUTSIDE RECORDS SUMMARY | 2024-08-11 19:29 | XMS_ITS | CONTINUITY OF CARE DOCUMENT ---
Author Name hollie browne Address Unknown Organization [facility] Office Address [address] [place] [address] [address] [place] [address] Phone [phone] Care Team Providers Care Packaging Sales Consultant Name Role Phone Allie CHINCHILLA, Balbir Unavailable MAKEDA HANCOCK MD Unavailable MAKEDA HANCOCK MD Unavailable INSURANCE PROVIDERS Payer name Policy type / Coverage type [place] [employer] ID KAREY EDEN [id number] [facility] Commercial insurance co [facility] [id number]
--- OUTSIDE RECORDS SUMMARY | 2024-08-11 19:29 | XMS_ITS | Patient Health Summary ---
Author Organization [facility] Address [address] [facility] [place] [address] Care Team Providers Care Asphalt Spreader Name Role Phone Tai Murguia MD Primary Care Provider [phone] [facility],non-owned Affiliates and Associated Physician Practices is amultiple site organization consisting of ambulatory clinics and hospital sitesin [place], [place], [place] and [place]. This disclosure is being madepursuant to the Care Everywhere program and may not contain all information available regarding this patient. Last updated 18.[facility] Allergies * Codeine Medications * Be aware [...] 12 hours 4 refills left * heparin 63357 UNIT/ML injection(Started 04/03/2010) Inject subcutaneously. Use insulin [...] Region Laterality Modality Other Sheri Carballo MD [facility] ORDERABLES * GLUCOSE PROTEIN KETONE URINE [...] POINT OF CARE ORDERABLES [place] [address] * SONOGRAM - COMPLETE (03/13/2010) Only the most recent of3 resultswithin the time period is included. Anatomical Region Laterality Modality Other Alessio Light MD [facility] ORDERABLES * (ABNORMAL) HEPARIN ANTI-XA LMWH (01/18/2010 4:00 PM CDT) Heparin Xa Low Molecular Weight 0.14 U/ML(L) 0.6 - 1.2 U/ml [facility] Comment Normals have been established using plastic tube containing 3.2% Sodium Citrate. [facility] Comment Ref Lab [facility] Comment: therapeutic range for heparin 0.6 - 1,2 U/ML, based on enoxaparin brand low molecular weight heparin LMW Ref Range [facility] Comment: Normal Range <0.01 U/mL Therapeutic Range for Heparin 0.6-1.2 U/mL Based on Enoxaparin brand Low Molecular Weight Heparin BLOOD SPECIMEN / Unknown 01/18/2010 4:00 PM CDT 01/18/2010 5:17 PM CDT Narrative Resulting Agency [place] [address] Sheri Carballo MD LAB - SEROLOGY ORDEdwina PANTOJA Performing Organization Address City/[facility] Co de Phone Number [facility] [address] [place] [address] * CARDIOLIPIN ANTIBODY PANEL (12/07/2009 2:30 PM CDT) Cardiolipin Antibody IgG 1.87 <23 GPL [facility] Cardiolipin Antibody IgM 7.81 <11 MPL [facility] BLOOD SPECIMEN / Unknown 12/07/2009 2:30 PM CDT 12/07/2009 3:03 PM CDT Angie Villafana MD LAB - SEROLOGY ORDEdwina PANTOJA Performing Organization Address City/[facility] Co de Phone Number [facility] [address] [place] [address] * (ABNORMAL) LUPUS ANTICOAGULANT PANEL (12/07/2009 2:30 PM CDT) PT (Lupus Anticoag) 11.7(L) 12.0 - 15.5 sec [facility] PTT Lupus Anticoagulant 44 32 - 48 sec [facility] dRVVT 29(L) 33 - 44 sec [facility] Thrombin Time Not Applicable 14.7 - 19.5 seconds [facility] Reptilase Time Not Applicable <=22.0 sec [facility] PTT Heparin Neutralized Not Applicable 32 - 48 [facility] PTT 1/1 Mix Not Applicable 32 - 48 sec [facility] Platelet Neutralization Not Applicable Negative sec [facility] dRVVT 1:1 Mix Not Applicable 33 - 44 sec [facility] dRVVT Confirmatory Test Not Applicable Negative [facility] Hexagonal Phospholipid Neutral Not Applicable Negative [facility] Interpretation Lupus Anticoagulant See Note [facility] Comment Ref Lab [facility] Comment: Comments and Normal Ranges for [...] CDT Narrative Resulting Agency Comment Performed By [facility] [address] Angie Villafana MD LAB - HEMATOLOGY OR DERABLES Performing Organization Address City/State/[facility] Co de Phone Number [facility] [address] [place] [address] * (ABNORMAL) PROTEIN S FREE (12/07/2009 2:30 PM CDT) Pathologist [facility] Protein S Antigen, Free 54(L) 57 - 131 % [facility] Comment Ref Lab [facility] Comment: Comments and Normal Ranges for [...] CDT Narrative Resulting Agency Comment Performed By [facility] [address] [place], [place] [address] Angie Villafana MD LAB - COAGULATION O RDERABLES Performing Organization Address City/[facility]/ZIP Co de Phone Number [facility] [address] [place] [address] * PROTEIN C ACTIVITY (12/07/2009 2:30 PM CDT) Pathologist [facility] Protein C Activity 51 U/DL [facility] Comment reference range- 70 130 [facility] BLOOD SPECIMEN / Unknown 12/07/2009 2:30 PM CDT 12/07/2009 3:03 PM CDT Narrative Resulting Agency Comment Performed By [address] [address] Angie Villafana MD LAB - COAGULATION O RDERAALEXI Performing Organization Address [facility] Co de Phone Number [facility] [address] [place] [address] * BETA-2 GLYCOPROTEIN 1 ANTIBODY IGG/IGM PANEL (12/07/2009 2:30 PM CDT) Beta-2 Glycoprotein Antibody IgG 1 0 - 20 [facility] Beta-2 Glycoprotein Antibody IgM 7 0 - 20 [facility] Comment Ref Lab [facility] Comment: Comments and Normal Ranges for [...] CDT Narrative Resulting Agency Comment Performed By [facility] [address] [place], [place] [address] Angie Villafana MD LAB - CHEMISTRY ORD ERABLES Performing Organization Address [facility] Co de Phone Number [facility] [address] [place] [address] * ANTITHROMBIN III ACTIVITY (12/07/2009 2:30 PM CDT) Pathologist [facility] AT III Activity 95 U/DL 80 - 150 [facility] Comment Reference Range- 85 - 130 [facility] BLOOD SPECIMEN / Unknown 12/07/2009 2:30 PM CDT 12/07/2009 3:03 PM CDT Narrative Resulting Agency Comment Performed By [address] [place] [address] Angie Villafana MD LAB - COAGULATION O RDERABLES Performing Organization Address [facility] Co de Phone Number [facility] [address] [place] [address] * CYCLIC CITRUL PEPTIDE AB IGG (CCP) (12/07/2009 2:30 PM CDT) Pathologist [facility] Cyclic Citrullinated Peptide Antibody IgG 0.23 <5.0 units [facility] BLOOD SPECIMEN / Unknown 12/07/2009 2:30 PM CDT 12/07/2009 3:03 PM CDT Angie Villafana MD LAB - CHEMISTRY ORD ERABLES Performing Organization Address [facility] Co de Phone Number [facility] [address] [place] [address] * (ABNORMAL) COMPREHENSIVE METABOLIC PANEL (12/07/2009 2:30 PM CDT) Sodium 136(L) 137 - 145 mmol/L [facility] Potassium 3.8 3.6 - 5.0 mmol/L [facility] Chloride 104 98 - 107 mmol/L [facility] BUN 10 7 - 17 mg/dl [facility] Creatinine 0.62 0.52 - 1.04 mg/dl [facility] Glucose 81 65 - 105 mg/dl [facility] Calcium 8.8 8.4 - 10.2 mg/dl [facility] Alkaline Phosphatase 56 38 - 126 U/L [facility] AST 27 8 - 39 U/L [facility] Bilirubin Total 0.2 0.2 - 1.3 mg/dl [facility] Protein Total 7.1 6.3 - 8.2 gm/dl [facility] Albumin 3.7(L) 3.9 - 5.0 gm/dl [facility] CO2 24 22 - 30 mmol/L [facility] ALT 29 9 - 52 U/L [facility] eGFR by MDRD 107 >60 mL/min/1.7 3m2 [facility] Comment eGFR [facility] Comment: The eGFR does not apply to patients who are younger than 18 or older than 70. BLOOD SPECIMEN / Unknown 12/07/2009 2:30 PM CDT 12/07/2009 3:03 PM CDT Angie Villafana MD LAB - CHEMISTRY ORD ERABLES Performing Organization Address City/[facility] Co de Phone Number [facility] [address] [place] [address] * HEPATITIS C ANTIBODY (12/07/2009 2:30 PM CDT) Hepatitis C Antibody Screen Nonreactive Nonreactive [facility] BLOOD SPECIMEN / Unknown 12/07/2009 2:30 PM CDT 12/07/2009 3:03 PM CDT Angie Villafana MD LAB - CHEMISTRY ORD ERABLES Performing Organization Address City/[facility]/ZIP Co de Phone Number [facility] [address] [place] [address] Care Teams Asphalt Spreader Relationship Specialty Start Date End Date Tai Murguia MD [address] [place] [address] PCP - General 02/21/18
--- OUTSIDE RECORDS SUMMARY | 2024-08-11 19:29 | XMS_ITS | Clinical Summary ---
Author Organization [facility] Address [address] [facility] [place] [address] Care Team Providers Care Logistics Director Name Role Phone Tai Murguia MD Primary Care Provider [phone] Source Comments [facility],non-owned Affiliates and Associated Physician Practices is amultiple site organization consisting of ambulatory clinics and hospital sitesin [place], [place], [place] and [place]. This disclosure is being madepursuant to the Care Everywhere program and may not contain all information available regarding this patient. Last updated 18.[facility] Allergies Active Allergy Reactions Criticality Noted Date [...] hours 60 Syringe 4 04/03/2010 Active heparin 89332 UNIT/ML injection Inject subcutaneously. Use insulin syringe [...] CDT) Hepatitis C Antibody Screen Nonreactive Nonreactive [facility] BLOOD SPECIMEN / Unknown 12/07/2009 2:30 PM CDT 12/07/2009 3:03 PM CDT Angie Villafana MD LAB - CHEMISTRY ORD ERABLES [facility] [address] [place] [address] from Last 3 Months or Most Recently Relevant to Health Maintenance Care Teams Logistics Director Relationship Specialty Start Date End Date Tai Murguia MD [address] [place] [address] PCP - General 02/21/18
--- OUTSIDE RECORDS SUMMARY | 2024-08-11 19:30 | XMS_ITS | Clinical Summary ---
Author Organization [facility] Address [facility] [place] [address] Care Team Providers Care Disciplinary Hearing Officer Name Role Phone Vijaya Paul MD Unavailable Kofi Powell MD Primary Care Provider [phone] Allergies Active Allergy Reactions Criticality Noted Date Comments Codeine Hives High 12/07/2009 Penicillin V Unknown 10/22/2016 Has tolerated ceftriaxone and cefepime previously Medications apixaban (ELIQUIS) 5 MG tablet Take 1 tablet (5 mg total) by mouth 2 (two) times daily. Active vitamin D2, ergocalciferol, (VITAMIN D, ERGOCALCIFEROL, ) 1.25 mg capsule Take 1 capsule (50,000 Units total) by mouth every 7 days. Takes every Active riTUXimab (RITUXAN) 100 MG/10ML injection Inject into the vein once. Pt gets infusion every 4 months Active multivitamin (THERA) tablet Take 1 tablet by mouth daily. Active estradiol (ESTRACE) 0.1 MG/GM vaginal cream Place 1 g vaginally 3 (three) times a week. Active Active Problems Problem Noted Date Diagnosed Date Pneumonia 04/14/2022 Right upper lobe pulmonary nodule 06/10/2020 Overview (06/22/2020): Noted on CT scan from the emergency department [facility]. 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 04/01/2019 Overview (04/01/2019): Added automatically from request for surgery [id number] FERNANDEZ (nonalcoholic steatohepatitis) 03/15/2019 Rheumatoid arthritis ([facility]) 8 Overview (05/13/2018): Transitioned From: Joint pain Medication management 07/04/2016 BMI 29.0-29.9,adult 07/04/2016 Overview (05/13/2018): Transitioned From: BMI 31.0-31.9,adult Nicotine dependence 07/04/2016 Factor V Leiden mutation ([facility] 03/14 Anxiety 03/14/2016 Retinal vein occlusion 12/28/2009 Overview (12/20/2020): Overview: In 08/2008, per progress note by Dr. Hilario. In 08/2008, per progress note by Dr. Hilario. Resolved Problems Problem Noted Date Diagnosed Date Resolved Date Tinea pedis, right 02/10/2018 8 Advanced maternal age in 12/07/2009 05/14/2018 Placental abruption ([facility]) 12/07/2009 05/14/2018 Overview (05/14/2018): Overview: G3 @ 23wk HCV Neg Previous delivery, antepartum condition or complication ([facility]) 12/07/200904/18 Overview (05/14/2018): Overview: Hx of c/s x3 Supervision of other high ri sk pregnancies, unspecified trimester ([facility]) 12/07/2009 05/14/20 18 Overview (05/14/2018): Overview: O+/I/-/- Consult only- Dr. Angie Zuluaga Neg pap Family History Medical History Relation Comments Cardiac Disorder Father Hypertension Father [place] Father Arthritis Mother Glaucoma Mother Osteoporosis Mother Cardiac Disorder Other [place] Other Malignant Neoplasm Paternal Grandfather Relation Status Comments Father Mother Other Paternal Grandfather Social History Tobacco Use Types Packs/Day Years Used Date Smoking Tobacco: Every Day Cigarettes Smokeless Tobacco: Never Tobacco Cessation:Counseling Given: Yes Alcohol Use Standard Drinks/Week Comments Not Currently 0 (1 standard drink = 0.6 oz pur e alcohol) Social [facility] Utilities Answer Date Recorded In the past 12 months has th e electric, gas, oil, or water company threatened to shut off services in your home? No 08/27/2023 Humiliation, Afraid, Rape, and Kick questionnair e Answer Date Recorded Within the last year, have y ou been afraid of your partner or ex-partner? No 08/27/2023 Within the last year, have y ou been humiliated or emotionally abused in other ways by your partner or ex-partner? No Within the last year, have y ou been kicked, hit, slapped, or otherwise physically hurt by your partner or ex-partner? No 08/27/2023 Within the last year, have y ou been raped or forced to have any kind of sexual activity by your partner or ex-partner? No 08/27/2023 Overall Financial Resource Strain (CARDIA) Answe r Date Recorded How hard is it for you to pa y for the very basics like food, housing, medical care, and heating? Not hard at all 08/27/2023 PHQ-2 Answer Date Recorded PHQ-2 Score - If the patient scores above 3, please move on to questions 3-9 0 12/20/2020 Hunger Vital Sign Answer Date Recorded Within the past 12 months, y ou worried that your food would run out before you got the money to buy more. Never true 08/27/19 24 Within the past 12 months, t he food you bought just didn't last and you didn't have money to get more. Never true 08/27/2023 PRAPARE - Transportation Answer Date Re corded In the past 12 months, has l ack of transportation kept you from medical appointments or from getting medications? No 08/15 In the past 12 months, has l ack of transportation kept you from meetings, work, or from getting things needed for daily living? No 08/27/2023 Housing Stability Vital Sign Answer Joel e Recorded In the last 12 months, was t here a time when you were not able to pay the mortgage or rent on time? No 08/27/2023 In the last 12 months, how many places have you lived? 1 08/27/2023 In the last 12 months, was t here a time when you did not have a steady place to sleep or slept in a retirement (including now)? No 08/27/2023 Education Answer Date Recorded What is the highest level of school you have completed or the highest degree you have received? Some college, no degree 07/28/2018 Comments No Sex and Gender Information Value Date Recorded Sex Assigned at Not on file Legal Sex Female 9:21 AM CDT Gender Identity Not on file Sexual Orientation Not on file Occupation Industry Job Start Date Job End Date Not on file Not on file Not on file Not on file Last Filed Vital Signs Vital Sign Reading Time Taken Comments Blood Pressure 104/66 08/30/2023 8:54 AM CDT Pulse 78 08/30/2023 8:54 AM CDT Temperature 36.1 C (97 F) 08/30/2023 8:54 AM CDT Respiratory Rate 18 08/30/2023 8:54 AM CDT Oxygen Saturation 95% 08/30/2023 8:54 AM CDT Inhaled Oxygen Concentration - - Weight 94.3 kg (207 lb 14.3 oz) 08/30/2023 3:40 AM CDT Height 167.6 cm (5' 6 ) 08/27/2023 12:4 5 PM CDT Body Mass Index 33.55 08/27/2023 12:45 PM CDT Plan of Treatment Health Maintenance Due Date Last Done Comments Cervical Cancer Screening Pap Smear (Age 30 to 64) Every 3 Years 1969 Colorectal Cancer Screening Colonoscopy (10 Years) 1969 Pneumococcal Vaccine: Pediatrics (0 to 5 Years) and At-Risk Patients (6 to 64 Years) (1 of 2 - PCV) 12/14/1975 DTaP, Tdap and Td Vaccines (1 - Tdap) 1988 Hepatitis B Vaccines (1 of 3 - 19+ 3-dose series) 1988 Cervical Cancer Screening Pap with HPV Testing (Age 30 to 64) Every 5 Years 12/14/1999 Cervical Cancer Screening with HPV 12/14/1999 Mammogram Screening 2009 Zoster Vaccines (1 of 2) 12/14/2019 Annual Physical 02/24/2020 02/23/2019 COVID-19 Vaccine (2 - season) 2024 03/09/2022 Influenza Adult (#1) 2024 Hepatitis C Completed 06/25/2023, 02/2024, 10/12/2021, Additional history exists Meningococcal B Vaccine Aged Out No l onger eligible based on patient's age to complete this topic Meningococcal Vaccine Aged Out No les heydi eligible based on patient's age to complete this topic RSV Immunizations Under 20 Months Aged Out No longer eligible based on patient's age to complete this topic Insurance [facility] Advance Directives * Full Code (Latest Code Status on File) Date Activated Date Inactivated Comments 08/27/2023 4:17 PM 08/30/2023 2:50 PM * Full Code Date Activated Date Inactivated Comments 04/15/2022 6:21 PM 04/19/2022 3:21 PM Care Teams Disciplinary Hearing Officer Relationship Specialty Start Date End Date Kofi Powell MD [address] [facility] [address] [place] [address] PCP - General FAMILY PRACTICE 04/12/22 [place] [address] [facility] [facility] [address] [place] [address] Consulting Physician RHEUMATOLOGY 02/10/19
--- OUTSIDE RECORDS SUMMARY | 2024-08-11 19:30 | XMS_ITS | Referral Summary ---
Author Organization [facility] Address [address] [place] [address] Care Team Providers Care Match Maker Name Role Phone Kofi Powell MD Primary Care Provider Ricky Michel MD Unavailable Maribell Simeon MD Unavailable [phone] Allergies Active Allergy Reactions Criticality Noted Date Comments Codeine Rash Medium Penicillins Other (See comments) Low 03/28/2022 Patient unsure of reaction - father allergic Medications multivit [id number] A-calcium (THERA-M) 9 mg iron-400 mcg tabletIndicatio [...] w/r/t gut microbiome. Referred to ADA and [employer] websites for additional information on topics including [...] (04/20/2022): Added automatically from request for surgery [id number] Right upper lobe pulmonary nodule 06/10/2020 Overview (03/18/2023): Noted on CT scan from the emergency department the [facility]. 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 04/01/2019 Overview (03/18/2023): Added automatically from request for surgery [id number] FERNANDEZ (nonalcoholic steatohepatitis) 03/15/2019 Factor V Leiden [...] drink = 0.6 oz pur e alcohol) [facility] Utilities Answer Date Recorded In the [...] often do you attend chur ch or buddhist services? Never 09/03/2023 Do you belong to any clubs o r organizations such as christianity groups, unions, fraternal or athletic groups, or [...] place to sleep or slept in a intermediate (including now)? No 09/03/2023 Personal Safety Answer Date Recorded Have you ever been in or are you currently in a harmful physical or emotional relationship or is someone making you feel afraid or unsafe? Denies 08/31/2023 Comments No Sex and Gender Information Value Date Recorded Sex Assigned at Not on file Legal Sex Female 8:24 PM LAB TECHNOLOGIST Gender Identity Not on file Sexual Orientation [...] DETECTION WITH GENOTYPING Routine 05/13/2023 4:45 PM LAB TECHNOLOGIST Cervical cancer screening from Last 3 Months or Most Recently Relevant to Health Maintenance Results * High Risk HPV DNA Detection with Genotyping (Molecular component) (05/13/2023 4:45 PM LAB TECHNOLOGIST) HPV HR 16 Not Detected Not Detected [facility] HPV HR 18 Not Detected Not Detected [facility] HPV HR Non 16/18 Not Detected Not Detected [facility] Comment: Interpretive Data Nucleic acid amplification for [...] this test have been verified by the [facility] Molecular Infectious Disease laboratory. Correlate with separately reported cytology results, as applicable. Interpretive data last revised 22 Endocervical 05/13/2023 4:45 PM LAB TECHNOLOGIST 05/14/2023 1:27 PM LAB TECHNOLOGIST Narrative [facility] - 05/15/2023 6:46 AM LAB TECHNOLOGIST Clinical history and diagnosis->screening Number of vials->1 Testing type->Screening Last menstrual period (date if known)->unk Menstrual status->Postmenopausal us Jyotsna Espinosa MD LAB BODY FLUID S AND STOOLS ORDERABLES Final Result [facility] [place] [address] from Last 3 Months or Most Recently Relevant to Health Maintenance Insurance [facility] [place] [place] [address] [facility] [place] [address] [facility] [place] [address] Advance Directives For more information, please contact: [phone] * Full Code (Latest Code Status on File) Date Activated Date Inactivated Comments 08/31/2023 4:14 AM 09/05/2023 4:44 PM * Full Code Date Activated Date Inactivated Comments 04/19/2022 2:26 PM 04/25/2022 4:03 PM Care Teams Match Maker Relationship Specialty Start Date End Date Kofi Powell MD [address] [facility] [address] [place] [address] PCP - General Family Medicine 04/21/22 Ricky Michel MD [address] [place] [address] Consulting Physician Internal Medicine 04/25/22 Maribell Simeon MD [address] [place] [address] Consulting Physician Otolaryngology 05/22/23 Betzy Hannah [facility] [address] [facility] [address] Client Care Representative Infectious Diseases 12/10/22
--- OUTSIDE RECORDS SUMMARY | 2024-08-11 19:30 | XMS_ITS | Clinical Summary ---
Author Organization [facility] Address [address] [place] [address] Phone Care Team Providers Care Windmill Mechanic Name Role Phone Tai Murguia MD Primary [...] on file Legal Sex Female 2:52 AM TURBO ELECTRIC OPERATOR Gender Identity Not on file Sexual Orientation Not on file Last Filed Vital Signs Vital Sign Reading Time Taken Comments Blood Pressure 102/68 08/25/2019 1:00 PM CDT Pulse 78 08/25/2019 1:00 PM CDT Temperature - - Respiratory Rate 16 08/25/2019 1:00 PM CDT Oxygen Saturation 96% 08/25/2019 1:00 PM CDT Inhaled Oxygen Concentration - - Weight 86.2 kg (190 lb) 04/20/2020 10:52 AM TURBO ELECTRIC OPERATOR Height 167.6 cm (5' 6 ) 04/20/2020 10:52 AM TURBO ELECTRIC OPERATOR Body Mass Index 30.67 04/20/2020 10:52 AM TURBO ELECTRIC OPERATOR Plan of Treatment Health Maintenance Due Date [...] years 2014 INFLUENZA VACCINE (#1) 2024 Insurance [facility] OPT[employer] PPO [id number] Care Teams Windmill Mechanic Relationship Specialty Start Date End Date Tai Murguia MD PCP - General Internal Medicine 11/26/18
--- OUTSIDE RECORDS SUMMARY | 2024-08-11 19:30 | XMS_ITS | Encounter Summary ---
Author Organization [facility] Address [facility] [place] [address] Care Team Providers Care Qual Research Manager Name Role Phone Tai Murguia MD Primary Care Provider [phone] Rafael Humphrey MD Unavailable Unavailable Vijaya Paul MD Unavailable Kofi Powell MD Primary Care Provider [phone] Encounter Details Date Type Department Care Team (Late st Contact Info) Description 10/25/2016 Abstract [facility] AT [address] [id number] Adan Caldwell MA Social History Tobacco Use Types Packs/Day Years Used Date Smoking Tobacco: Former Alcohol Use Standard Drinks/Week Comments Yes 0 (1 standard drink = 0.6 oz pur e alcohol) Social Comments Unknown Sex and Gender Information Value Date Recorded Sex Assigned at Not on file Legal Sex Female 9:21 AM CDT Gender Identity Not on file Sexual Orientation Not on file documented as of this encounter Plan of Treatment Not on file documented as of this encounter Procedures Procedure Name Priority Date/Time Associated Diagnosis Comments CBC (OUTSIDE LAB) Routine 07/04/2016 COMPREHENSIVE METABOLIC PANEL Routine 07/04/2016 C-REACTIVE PROTEIN Routine 07/04/2016 documented in this encounter Results * C-REACTIVE PROTEIN (07/04/2016) CRP 0.09 07/04/2016 us Doc [facility]AT[facility] Final Result * CBC (OUTSIDE LAB) (07/04/2016) WBC 9.2 HGB 15.8 HCT 45.4 PLT 186 07/04/2016 us Doc [facility] Abstract LAB-OUTSIDE/ABSTRACTED Final Result * COMPREHENSIVE METABOLIC PANEL (07/04/2016) SODIUM S/P/B 137 POTASSIUM S/P/B 4.1 CO2 20 CHLORIDE S/P/B 108 GLUCOSE 85 CALCIUM S/P/B 9.3 BUN 21 CREATININE S/P/B 0.77 0.5 - 1.0 EGFR NON-AFR. AMER. >60 <=90 ALKALINE PHOSPHATASE S/P/B 61 ALT 37 AST 25 BILIRUBIN TOTAL S/P/B 0.6 ALBUMIN S/P/B 4.2 3.5 - 5.0 TOTAL PROTEIN S/P/B 6.9 07/04/2016 us Doc [facility] Final Result documented in this encounter Visit Diagnoses Not on filedocumented in this encounter Additional Health Concerns Infection Onset Date Last Indicated Resolved Time COVID-19 Rule Out 12/28/2019 12/28/2019 12/29/2019 9:38 PM CDT COVID-19 Rule Out 04/15/2022 04/15/2022 04/16/2022 11:19 AM CDT COVID-19 Rule Out 08/27/2023 08/27/2023 08/27/2023 2:07 PM CDT COVID-19 Confirmed 08/27/2023 08/27/2023 12:32 AM CDT documented as of this encounter Care Teams Qual Research Manager Relationship Specialty Start Date End Date Tai Murguia MD PCP - General INTERNAL MEDICINE 10/15/16 04/11/22 Kofi Powell MD [address] [place] [address] PCP - General FAMILY PRACTICE 04/12/22 Rafael Humphrey MD [place] Big Data Engineer CARDIOVASCULAR DISEASE 10/22/16 12/11/19 [place] [address] [facility] [address] [place] [address] Consulting Physician RHEUMATOLOGY 02/10/19 documented as of this encounter
--- OUTSIDE RECORDS SUMMARY | 2024-08-11 19:30 | XMS_ITS | Clinical Summary ---
Author Organization [facility] Address [address] [place] [address] Care Team Providers Care Tape Cutter Name Role Phone Kofi Powell MD Primary Care Provider Ricky Michel MD Unavailable [phone] Maribell Simeon MD Unavailable [phone] Allergies Active Allergy Reactions Criticality Noted Date Comments Codeine Rash Medium Penicillins Other (See comments) Low 03/28/2022 Patient unsure of reaction - father allergic Medications multivit fzbxnrci-[id number]-[id number] A-calcium (THERA-M) 9 mg iron-400 mcg tabletIndicatio [...] w/r/t gut microbiome. Referred to ADA and [place] [employer] websites for additional information on topics including [...] (04/20/2022): Added automatically from request for surgery [id number] Right upper lobe pulmonary nodule 06/10/2020 Overview (03/18/2023): Noted on CT scan from the emergency department the [facility]. 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 04/01/2019 Overview (03/18/2023): Added automatically from request for surgery [id number] FERNANDEZ (nonalcoholic steatohepatitis) 03/15/2019 Factor V Leiden [...] Medical History Relation Name Comments Cancer Father [place] Diabetes Father [place] Heart disease Father [place] Hypertension Father Artemio Stroke Father Artemio Hearing loss Mother Gretel Hypertension Mother Gretel Osteoporosis Mother Gretel Diabetes Mother's Brother Roberto Carlos Breast cancer Mother's Sister 1 Cancer Mother's Sister 2 Az[place] Asthma Paternal Grandmother [place]ra Anesthesia problems Neg Hx Colon cancer Neg Hx Ovarian cancer Neg Hx Uterine cancer Neg Hx Relation Name Status Comments Father [place] Mother Gretel Alive Mother's Brother Roberto Carlos Mother's Sister 1 Mother's Sister 2 Aziza Paternal Grandmother [place]ra Social History Tobacco Use Types Packs/Day Years Used Date Smoking Tobacco: Former Cigarettes Q uit: 03/17/2022 Smokeless Tobacco: Never Tobacco Cessation:Counseling Given: Not Answered Comments:1ppd since age 11 Alcohol Use Standard Drinks/Week Comments No 0 (1 standard drink = 0.6 oz pur e alcohol) [employer] Utilities Answer Date Recorded In the past 12 months has e electric, gas, oil, or water [employer] threatened to shut off services in your [...] often do you attend chur ch or zoroastrianism services? Never 09/03/2023 Do you belong to any clubs o r organizations such as anabaptism groups, unions, fraternal or athletic groups, or [...] place to sleep or slept in a fci (including now)? No 09/03/2023 Personal Safety Answer Date Recorded Have you ever been in or are you currently in a harmful physical or emotional relationship or is someone making you feel afraid or unsafe? Denies 08/31/2023 Comments No Sex and Gender Information Value Date Recorded Sex Assigned at Not on file Legal Sex Female 8:24 PM TILE TRIMMER Gender Identity Not on file Sexual Orientation [...] DETECTION WITH GENOTYPING Routine 05/13/2023 4:45 PM TILE TRIMMER Cervical cancer screening from Last 3 Months or Most Recently Relevant to Health Maintenance Results * High Risk HPV DNA Detection with Genotyping (Molecular component) (05/13/2023 4:45 PM TILE TRIMMER) HPV HR 16 Not Detected Not Detected [facility] HPV HR 18 Not Detected Not Detected [facility] HPV HR Non 16/18 Not Detected Not Detected [facility] Comment: Interpretive Data Nucleic acid amplification for [...] this test have been verified by the [facility] Molecular Infectious Disease laboratory. Correlate with separately reported cytology results, as applicable. Interpretive data last revised 22 Endocervical 05/13/2023 4:45 PM TILE TRIMMER 05/14/2023 1:27 PM TILE TRIMMER Narrative [facility] - 05/15/2023 6:46 AM TILE TRIMMER Clinical history and diagnosis->screening Number of vials->1 Testing type->Screening Last menstrual period (date if known)->unk Menstrual status->Postmenopausal us Jyotsna Espinosa MD LAB BODY FLUID S AND STOOLS ORDERABLES Final Result [facility] Department [place] [address] from Last 3 Months or Most Recently Relevant to Health Maintenance Insurance [facility] HMO/PPO Address: [id number] [place] [phone] [facility] H[facility]/PPO Address: [address] [place] [phone] [facility] [place] [address] [facility] H[facility]/PPO Address: [address] [place] [phone] [facility] [place] [address] Advance Directives For more information, please contact: [phone] * Full Code (Latest Code Status on File) Date Activated Date Inactivated Comments 08/31/2023 4:14 AM 09/05/2023 4:44 PM * Full Code Date Activated Date Inactivated Comments 04/19/2022 2:26 PM 04/25/2022 4:03 PM Care Teams Tape Cutter Relationship Specialty Start Date End Date Kofi Powell MD [address] [address] PCP - General Family Medicine 04/21/22 Ricky Michel MD [address] [facility] [address] [place] [address] Consulting Physician Internal Medicine 04/25/22 Maribell Simeon MD [address] [place], [place] [id number] Consulting Physician Otolaryngology 05/22/23 Betzy Hannah CORRECTIONS IDENTIFICATION TECHNICIAN [address] [facility] [address] Liquor Gallery Operator Infectious Diseases 12/10/22
--- OUTSIDE RECORDS SUMMARY | 2024-08-11 19:30 | XMS_ITS | Clinical Summary ---
Author Organization [facility] Address [address] [place] [address] Phone Care Team Providers Care Filler In Name Role Phone Provider, None Primary Care [...] patient's age to complete this topic Insurance [facility] Care Teams Filler In Relationship Specialty Start Date End Date Provider, None [place] PCP - General 12/17/21
--- OUTSIDE RECORDS SUMMARY | 2024-08-11 19:30 | XMS_ITS | Continuity of Care Document ---
Author Organization [facility] Address [address] [address] Phone Care Team Providers Care Hide Worker Name Role Phone Jag Franz MD Unavailable [...] , [address], , [address], tel:[phone] [facility] No Information 3 Osei Rm. [address], , [id number]. tel:[phone] OFFICE/OUTPA TIENT VISIT EST [facility] , [address] [facility] [address], , [address], [place] tel:[phone] [facility] Follow up (chief complaint) Rheumatoid arthritis with positive rheumatoid factor, involving unspecified siteLong COVIDLow serum IgG for ageNasal congestion 3 Osei Hamsa. [address], , [id number]. tel:[phone] Referring Provider: Vijaya Paul, [address] [address], , [address]. tel:[phone] OFFICE/OUTPA TIENT VISIT EST [facility] , [address], , [address], [place] tel:[phone] [facility] Follow up (chief complaint) CVID (common variable immunodeficien cy)ThrombosisO rganizing pneumoniaRecur rent sinus infectionsRheu matoid arthritis with positive rheumatoid factor, involving unspecified siteVaccinatio n declined 2 Osei Hamsa. [address], , [id number]. tel:[phone] OFFICE/OUTPA TIENT VISIT EST [facility] , [address] [facility] [address], , [address], [place] tel:[phone] [facility] Follow up (chief complaint) CVID (common variable immunodeficien cy)Organizing pneumoniaRecur rent sinus infectionsRheu matoid arthritis with positive rheumatoid factor, involving unspecified siteThrombosis 2 Osei Hamsa. [address], , [id number]. tel:[phone] [facility] , [address], , [address], [place] tel:[phone] [facility] f/u (chief complaint) Chronic panethmoidal sinusitisOrgan izing pneumoniaCOVID Viral infectionCVID (common variable immunodeficien cy) 2 Osei Hamsa. [address], , [id number]. tel:[phone] OFFICE/OUTPA TIENT VISIT [facility] , [address] [facility] [address], , [address], [place] tel:[phone] [facility] Follow up (chief complaint) Rheumatoid arthritis with positive rheumatoid factor, involving unspecified siteChronic coughRecurrent sinus infections 2 Osei Hamsa. [address], , [id number]. tel:[phone] Referring Provider: Vijaya Paul, [address], , [address]. tel:[phone] [facility] , [address] [facility] [address], , [address], [place] tel:[phone] [facility] No Information 2 Osei Hamsa. [address], , [id number]. tel:[phone] OFFICE/OUTPA TIENT VISIT NEW [facility] , [address] [facility] [address], , [address], [place] tel:[phone] [facility] post covid cough (chief complaint) Chronic coughRecurrent sinus infectionsBody mass index [BMI] 26.0-26.9, adultRheumatoi d arthritis with positive rheumatoid factor, involving unspecified siteEncounter for tobacco use cessation counselingAcut e allergic rhinitis due to animal hair and dander 2 Osei Hamsa. [address], , [id number]. tel:[phone] Referring Provider: Vijaya Paul, [address] [address], , [address]. tel:[phone] Family History Family Member Type Diagnosis Age At Onset Problem Family history of Coronary a rtery disease Problem Family history of Diabetes m ellitus Immunizations Vaccine Date Status Comments SARS-COV-2 (COVID-19) vaccin e, mRNA, spike protein, LNP, preservative free, 30 mcg/0.3mL dose ([place]) administered Note: all 3 ; Source : Other Provider Payers Payer name Insurance type Covered democrat ID Amanda drake(heather) [place] [id number] Social History Type Description Quantity Date Captured [...] up Initially seen a nd evaluated at [facility] where she was admitted with organizing [...] has not gone back to seeing the contact worker lithography. According to patient a prior contact worker lithography had given her some kind of a [...] positive for influenza A comma move to [facility] tested positive for rhino and enterovirus, [...] for the flu. Patient works for [employer] and had some kind of a reactive [...] fatigue. post covid cough Referred by her contact worker lithography Dr. 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 She has two dogs and two cats at home. She also has a hamster at home. She smokes about half a pack a day. Functional Status Date Functional Assessmen t No Information Instructions Date Instruction Additional Infor terence addendum , reviewed lab work from [facility] - normal CBC no eosinophils, neutrophil elevated t 7.7 , TSH normal, ALT AND ALK PHOS ELEAVTED Related to Recurrent sinus infections Giving encouragement to exercise Related to Body mass index [BMI] 26.0-26.9, adult Assessments Type Assessment Date No Information Patient Care Teams Name Effective Dates (start - stop) Status Members No Information
== END 2024-08-11 19:34 | disposition home or self-care (01) ==
PROVIDERS: Emergency Provider Registered Nurse; PCP Family Medicine
DX: S93.401A Sprain of unspecified ligament of right ankle, initial encounter (principal); W10.9XXA Fall (on) (from) unspecified stairs and steps, initial encounter; E55.9 Vitamin D deficiency, unspecified; D68.51 Activated protein C resistance; M06.9 Rheumatoid arthritis, unspecified; Z87.891 Personal history of nicotine dependence
CPT/HCPCS: 73610; 99283

== ENCOUNTER 2025-03-04 08:22 | Emergency (ER) | payer OTHER, SELFPAY ==
--- OUTSIDE RECORDS SUMMARY | 2022-09-26 06:22 | XMS_ITS | Continuity of Care Document ---
Author Organization [facility] Address [address] [place] [address] Phone Care Team Providers Care Staff Training And Development Manager Name Role Phone Osei CHINCHILLA, Jag Unavailable Unavailabl e Allergies, Adverse Reactions, Alerts Substance Reaction Status Criticality PENICILLIN Active No Information Medications Medication Instructions Dosage Effective Dates (start - stop) Status Comments Nasacort 55 mcg nasal spray aerosol spray 2 spray by intranasal route every day in each nostril 110 MCG - Active sample RITUXAN (unknown strength) infuse by intravenous route once Not Available - Active Kapspargo Sprinkle 200 mg capsule,extended release take 1 capsule by oral route every day 200 MG - Active ELIQUIS (unknown strength) take 1 tablet by oral route 2 times every day Not Available - Active ALEVE (unknown strength) take 1 capsule by oral route every 12 hours as needed Not Available - Active VITAMIN D3 (unknown strength) Not Available - Active Procedures Procedure Date OFFICE/OUTPATIENT VISIT EST OFFICE/OUTPATIENT VISIT EST OFFICE/OUTPATIENT VISIT EST OFFICE/OUTPATIENT VISIT EST OFFICE/OUTPATIENT VISIT NEW NASAL ENDOSCOPY DX Advance Directives Directive Yes / No Effective Date File Name No Information Encounters Encounter Description Practice Location Reason(s) For Visit Diagnoses Date Provider Providers Copied on Encounter [facility] , [address], [place], [address], tel:[phone] [facility] No Information 3 Osei Rm. [address], [place], [place], [id number]. tel:[phone] OFFICE/OUTPA TIENT VISIT EST [facility] , [address], [place], [address], [place] tel:[phone] [facility] Follow up (chief complaint) Rheumatoid arthritis with positive rheumatoid factor, involving unspecified siteLong COVIDLow serum IgG for ageNasal congestion 3 Osei Hamsa. [address], [place], [place], [id number]. tel:[phone] Referring Provider: Vijaya Paul, [address], [place], [address]. tel:[phone] OFFICE/OUTPA TIENT VISIT EST [facility] , [address], [place], [address], [place] tel:[phone] [facility] Follow up (chief complaint) CVID (common variable immunodeficien cy)ThrombosisO rganizing pneumoniaRecur rent sinus infectionsRheu matoid arthritis with positive rheumatoid factor, involving unspecified siteVaccinatio n declined 2 Osei Hamsa. [address], [place], [place], [id number]. tel:[phone] OFFICE/OUTPA TIENT VISIT EST [facility] , [address], [place], [address], [place] tel:[phone] [facility] Follow up (chief complaint) CVID (common variable immunodeficien cy)Organizing pneumoniaRecur rent sinus infectionsRheu matoid arthritis with positive rheumatoid factor, involving unspecified siteThrombosis 2 Osei Hamsa. [address], [place], [place], [id number]. tel:[phone] [facility] , [address], [place], [address], [place] tel:[phone] [facility] hospital f/u (chief complaint) Chronic panethmoidal sinusitisOrgan izing pneumoniaCOVID Viral infectionCVID (common variable immunodeficien cy) 2 Osei Hamsa. [address], [place], [place], [id number]. tel:[phone] OFFICE/OUTPA TIENT VISIT [facility] , [address], [place], [address], [place] tel:[phone] [facility] Follow up (chief complaint) Rheumatoid arthritis with positive rheumatoid factor, involving unspecified siteChronic coughRecurrent sinus infections 2 Osei Hamsa. [address], [place], [place], [id number]. tel:[phone] Referring Provider: Vijaya Paul, [address], [place], [address]. tel:[phone] [facility] , [address], [place], [address], [place] tel:[phone] [facility] No Information 2 Osei Hamsa. [address], [place], [place], [address]. tel:[phone] OFFICE/OUTPA TIENT VISIT NEW [facility] , [address], [place], [address], [place] tel:[phone] [facility] post covid cough (chief complaint) Chronic coughRecurrent sinus infectionsBody mass index [BMI] 26.0-26.9, adultRheumatoi d arthritis with positive rheumatoid factor, involving unspecified siteEncounter for tobacco use cessation counselingAcut e allergic rhinitis due to animal hair and dander 2 Osei Hamsa. [address], [place], [place], [address]. tel:[phone] Referring Provider: Vijaya Paul, [address], [place], [address]. tel:[phone] Family History Family Member Type Diagnosis Age At Onset Problem Family history of Coronary a rtery disease Problem Family history of Diabetes m ellitus Immunizations Vaccine Date Status Comments SARS-COV-2 (COVID-19) vaccin e, mRNA, spike protein, LNP, preservative free, 30 mcg/0.3mL dose ([employer]) administered Note: all 3 ; Source : Other Provider Payers Payer name Insurance type Covered constitution party ID Amanda drake(heather) [place] [id number] Social History Type Description Quantity Date Captured [...] up Initially seen a nd evaluated at [facility] where she was admitted with organizing pneumonia [...] She told me she went to a [place] constitution party and drank wine and the next day felt like she had gained a lot of water weight. She was worried about her kidneys. also her rheumatoid arthritis has been flaring up. She has been having mild joint aches and pains especially in the small joints of her hand. After her hospitalization patient has not gone back to seeing the jazz singer. According to patient a prior jazz singer had given her some kind of a [...] positive for influenza A comma move to [facility] tested positive for rhino and enterovirus, and [...] for the flu. 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 post covid cough Referred by her jazz singer Dr. 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 She has two dogs and two cats at home. She also has a hamster at home. She smokes about half a pack a day. Functional Status Date Functional Assessmen t No Information Instructions Date Instruction Additional Infor terence addendum , reviewed lab work from [facility] - normal CBC no eosinophils, neutrophil elevated t 7.7 , TSH normal, ALT AND ALK PHOS ELEAVTED Related to Recurrent sinus infections Giving encouragement to exercise Related to Body mass index [BMI] 26.0-26.9, adult Assessments Type Assessment Date No Information Patient Care Teams Name Effective Dates (start - stop) Status Members No Information
--- OUTSIDE RECORDS SUMMARY | 2022-09-26 06:22 | XMS_ITS | Continuity of Care Document ---
Author Organization [facility] Address [address] [place] [address] Phone Care Team Providers Care Production Clerk Name Role Phone Jag Franz MD Unavailable [...] , [address], [place], [address], tel:[phone] [facility] No Information 3 Osei Rm. [address], [place], [place], [id number]. tel:[phone] OFFICE/OUTPA TIENT VISIT EST [facility] , [address], [place], [address], [place] tel:[phone] [facility] Follow up (chief complaint) Rheumatoid arthritis with positive rheumatoid factor, involving unspecified siteLong COVIDLow serum IgG for ageNasal congestion 3 Osei Hamsa. [address], [place], [place], [address]. tel:[phone] Referring Provider: Vijaya Paul, [address], [place], [address]. tel:[phone] OFFICE/OUTPA TIENT VISIT EST [facility] , [address], [place], [address], [place] tel:[phone] [facility] Follow up (chief complaint) CVID (common variable immunodeficien cy)ThrombosisO rganizing pneumoniaRecur rent sinus infectionsRheu matoid arthritis with positive rheumatoid factor, involving unspecified siteVaccinatio n declined 2 Osei Hamsa. [address], [place], [place], [address]. tel:[phone] OFFICE/OUTPA TIENT VISIT EST [facility] , [address], [place], [address], [place] tel:[phone] [facility] Follow up (chief complaint) CVID (common variable immunodeficien cy)Organizing pneumoniaRecur rent sinus infectionsRheu matoid arthritis with positive rheumatoid factor, involving unspecified siteThrombosis 2 Osei Hamsa. [address], [place], [place], [id number]. tel:[phone] [facility] , [address], [place], [address], [place] tel:[phone] [facility] hospital f/u (chief complaint) Chronic panethmoidal sinusitisOrgan izing pneumoniaCOVID Viral infectionCVID (common variable immunodeficien cy) 2 Osei Hamsa. [address], [place], [place], [id number]. tel:[phone] OFFICE/OUTPA TIENT VISIT [facility] , [address], [place], [address], [place] tel:[phone] [facility] Follow up (chief complaint) Rheumatoid arthritis with positive rheumatoid factor, involving unspecified siteChronic coughRecurrent sinus infections 2 Osei Hamsa. [address], [place], [place], [address]. tel:[phone] Referring Provider: Vijaya Paul, [address], [place], [address]. tel:[phone] [facility] , [address], [place], [address], [place] tel:[phone] [facility] No Information 2 Osei Hamsa. [address], [place], [place], [address]. tel:[phone] OFFICE/OUTPA TIENT VISIT NEW [facility] , [address], [place], [address], [place] tel:[phone] [facility] post covid cough (chief complaint) Chronic coughRecurrent sinus infectionsBody mass index [BMI] 26.0-26.9, adultRheumatoi d arthritis with positive rheumatoid factor, involving unspecified siteEncounter for tobacco use cessation counselingAcut e allergic rhinitis due to animal hair and dander 2 Osei Hamsa. [address], [place], [place], [address]. tel:[phone] Referring Provider: Vijaya Paul, [address], [place], [address]. tel:[phone] Family History Family Member Type Diagnosis Age At Onset Problem Family history of Coronary a rtery disease Problem Family history of Diabetes m ellitus Immunizations Vaccine Date Status Comments SARS-COV-2 (COVID-19) vaccin e, mRNA, spike protein, LNP, preservative free, 30 mcg/0.3mL dose ([employer]) administered Note: all 3 ; Source : Other Provider Payers Payer name Insurance type Covered green party ID Amanda drake(heather) [place] [facility] [id number] Social History Type Description Quantity Date Captured [...] up Initially seen a nd evaluated at [facility] where she was admitted with organizing pneumonia [...] She told me she went to a [place] green party and drank wine and the next day felt like she had gained a lot of water weight. She was worried about her kidneys. also her rheumatoid arthritis has been flaring up. She has been having mild joint aches and pains especially in the small joints of her hand. After her hospitalization patient has not gone back to seeing the construction electrician. According to patient a prior construction electrician had given her some kind of a [...] positive for influenza A comma move to [facility] tested positive for rhino and enterovirus, and [...] for the flu. 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 post covid cough Referred by her construction electrician Dr. 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 She has two dogs and two cats at home. She also has a hamster at home. She smokes about half a pack a day. Functional Status Date Functional Assessmen t No Information Instructions Date Instruction Additional Infor terence addendum , reviewed lab work from [facility] - normal CBC no eosinophils, neutrophil elevated t 7.7 , TSH normal, ALT AND ALK PHOS ELEAVTED Related to Recurrent sinus infections Giving encouragement to exercise Related to Body mass index [BMI] 26.0-26.9, adult Assessments Type Assessment Date No Information Patient Care Teams Name Effective Dates (start - stop) Status Members No Information
--- OUTSIDE RECORDS SUMMARY | 2025-03-04 08:42 | XMS_ITS | Clinical Summary ---
Author Organization [facility] Address [address] [place] [address] Phone Care Team Providers Care Marketing Finance Specialist Name Role Phone Provider, None Primary Care [...] 3:20 PM CDT Height 167.6 cm (5' 6) 12/17/2021 3:20 PM CDT Body Mass Index 26.47 12/17/2021 3:20 PM CDT Plan of Treatment Health Maintenance Due Date Last Done Comments TdaP Immunization 1969 Hepatitis B Immunization (1 of 3 - 19+ 3-dose series) 1988 Pap Smear 1990 Cervical Cancer Screening (CCS) 12/14/1999 HPV/Cotest 12/14/1999 Cologuard 2014 Colonoscopy 2014 Colorectal Cancer Screening 2014 Immunochemical Fecal Occult Blood 2014 Pneumococcal Immunization (5 0+ years) (1 of 1 - PCV) 12/14/2019 Zoster Immunization (1 of 2) 12/14/2019 Influenza Immunization (#1) 2025 SARS-COV-2 Immunization (2 - season) 2025 03/09/2022 Respiratory Syncytial Virus (RSV) Immunization (Adult) (1 - 1-dose 75+ series) 2044 Hepatitis C Virus (HCV) Screening Completed 022 Human Papillomavirus (HPV) Immunization Aged Out No longer eligible b ased on patient's age to complete this topic Meningococcal Immunization (ACWY) Aged Out No longer eligible based on patient's age to complete this topic Rotavirus Immunization Aged Out No lo nger eligible based on patient's age to complete this topic Insurance [employer] Care Teams Marketing Finance Specialist Relationship Specialty Start Date End Date Provider, None [place] PCP - General 12/17/21
--- OUTSIDE RECORDS SUMMARY | 2025-03-04 08:43 | XMS_ITS | Clinical Summary ---
Author Organization [email or web address] Address [address] [facility] [place] [address] Care Team Providers Care Interior Design Professional Name Role Phone Tai Murguia MD Primary Care Provider [phone] Source Comments [facility],non-owned Affiliates and Associated Physician Practices is amultiple site organization consisting of ambulatory clinics and hospital sitesin [place], [place], [place] and [place]. This disclosure is being madepursuant to the Care Everywhere program and may not contain all information available regarding this patient. Last updated 18.[facility] Allergies Active Allergy Reactions Criticality Noted Date Comments Codeine 12/07/2009 Medications * Be aware that medications may not be up to date on this document. Alwaysverify current medications with the patient. famotidine (PEPCID) 40 MG tablet Take 1 Tab by mouth 2 times daily. 90 Tab 3 03/06/2010 Active Insulin Syringe-Needle U-100 (INSULIN SYRINGE 1CC/30GX5/16) 30G X 5/16 1 ML MISC Use. Use insulin syringe to inject SC heparin 0.65ml from the 20,000units/m l bottle. Adjust dose as directed by physician. Inject every 12 hours 60 Syringe 4 04/03/2010 Active heparin 19172 UNIT/ML injection Inject subcutaneousl y. Use insulin syringe to inject SC heparin 0.65ml every 12 hours from the 20,000units/m l bottle. Adjust dose as directed by physician. 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 Gender Identity Not on file Sexual [...] SCREENING 1970 LIPID TESTING 1969 MAMMOGRAM 1969 HIV SCREENING 1984 DTAP/TDAP/TD VACCINES (1 - Tdap) 1988 HEPATITIS B VACCINE (1 of 3 - 19+ 3-dose series) 1988 PNEUMOCOCCAL VACCINE 50+ (1 of 1 - PCV) 12/14/2019 ZOSTER VACCINE (1 of 2) 12/14/2019 DEPRESSION SCREENING 06/17/2024 COVID-19 VACCINE (1 - 2023-2 5 season) 2025 INFLUENZA VACCINE (#1) 2025 HEPATITIS C SCREENING Completed 12/07/2009 HIB VACCINE Aged Out No longer eligi ble based on patient's age to complete this topic HPV VACCINE Aged Out No longer eligi ble based on patient's age to complete this topic MENINGOCOCCAL (Group B) VACC INE SHARED DECISION-MAKING Aged Out No longer eligibl e based on patient's age to complete this topic MENINGOCOCCAL GROUPS A/C/Y/W VACCINE Aged Out No longer eligible b ased on patient's age to complete this topic Procedures Procedure Name Priority Date/Time Associated Diagnosis Comments HEPATITIS C ANTIBODY Today 12/07/2009 2:30 PM CDT Suprv High-Risk Preg NEC from Last 3 Months or Most Recently Relevant to Health Maintenance Results * HEPATITIS C ANTIBODY (12/07/2009 2:30 PM CDT) Hepatitis C Antibody Screen Nonreactive Nonreactive [facility] BLOOD SPECIMEN / Unknown 12/07/2009 2:30 PM CDT 12/07/2009 3:03 PM CDT us Angie Villafana MD LAB - CHEMISTRY ORDERABLES Final Result [facility] [address] [place] [address] from Last 3 Months or Most Recently Relevant to Health Maintenance [place] [address] [place] [address] Care Teams Interior Design Professional Relationship Specialty Start Date End Date Tai Murguia MD [address] [place] [address] PCP - General 02/21/18
--- OUTSIDE RECORDS SUMMARY | 2025-03-04 08:43 | XMS_ITS | Clinical Summary ---
Author Organization [facility] Address [address] [place] [address] Care [address] Collections Officer Name Role Phone Kofi Powell MD Primary Care Provider Ricky Michel MD Unavailable [phone] Maribell Simeon MD Unavailable [phone] Allergies Active Allergy Reactions Criticality Noted Date Comments Codeine Rash Medium Penicillins Other (See comments) Low 03/28/2022 Patient unsure of reaction - father allergic Medications multivit bgztmkra-mppq-R A-calcium (THERA-M) 9 mg iron-400 mcg tabletIndicatio [...] w/r/t gut microbiome. Referred to ADA and [place] [employer] websites for additional information on topics including [...] deficit 12/14/2022 Vaccine counseling 12/14/2022 Atrial fibrillation 10/26/2022 Fever 04/19/2022 Rheumatoid arthritis involving multiple sites Pneumonia of right lower lobe due to infectious organism 04/19/2022 Rhinovirus infection 04/19/[address] 04/18/2022 Overview (04/20/2022): Added automatically from request for surgery [id number] Right upper lobe pulmonary nodule 06/10/2020 Overview (03/18/2023): Noted on CT scan from the emergency department the [facility]. 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 Paroxysmal atrial fibrillati on (HCC) COVID related by report DVT (deep venous thrombosis) Rig ht upper extremity related to a PICC line Family History Medical History Relation Name Comments Cancer Father [place] Diabetes Father [place] Heart disease Father Artemio Hypertension Father Artemio Stroke Father [place] Hearing loss Mother Gretel Hypertension Mother Gretel Osteoporosis Mother Gretel Diabetes Mother's Brother Roberto Carlos Breast cancer Mother's Sister 1 Cancer Mother's Sister 2 Aziza Asthma Paternal Grandmother Luthera Anesthesia problems Neg Hx Colon cancer Neg Hx Ovarian cancer Neg Hx Uterine cancer Neg Hx Relation Name Status Comments Father Artemio Mother Gretel Alive Mother's Brother Roberto Carlos Mother's Sister 1 Mother's Sister 2 Aziza Paternal Grandmother Luthera Social History Tobacco Use Types Packs/Day Years Used Date Smoking Tobacco: Former Cigarettes Q uit: 03/17/2022 Smokeless Tobacco: Never Tobacco Cessation:Counseling Given: Not Answered Comments:1ppd since age 11 Alcohol Use Standard Drinks/Week Comments No 0 (1 standard drink = 0.6 oz pur e alcohol) [facility] Utilities Answer Date Recorded In the past 12 months has e electric, gas, oil, or water company threatened to shut off services in your home? No 09/03/2023 Social Connection and Isolation Panel Answer Date Recorded In a typical week, how many times do you talk on the phone with family, friends, or neighbors? More than three times a week 09/03/2023 How often do you get togethe r with friends or relatives? More than three times a week 09/03/2023 How often do you attend [facility] or uatsdin services? Never 09/03/2023 Do you belong to any clubs o r organizations such as uatsdin groups, unions, fraternal or athletic groups, or [...] place to sleep or slept in a senior care (including now)? No 09/03/2023 Personal Safety Answer Date Recorded Have you ever been in or are you currently in a harmful physical or emotional relationship or is someone making you feel afraid or unsafe? Denies 08/31/2023 Comments No Sex and Gender Information Value Date Recorded Sex Assigned at Not on file Legal Sex Female 8:24 PM BOOK SALESMAN Gender Identity Not on file Sexual Orientation Not on file Obstetrics History Para Term AB IAB SAB Ectopic Multiple Livin g Live Births 4 4 3 1 3 4 Date Outcome GA Total Labor Labor/2nd/3rd Weight Sex Type Anes PTL Cecilia A1 A5 Name Clin 1995 Term 42w 0d F C-S j incis Livin g Comments:failed IOL 1999 Term 39w 0d M C-S j incis Livin g 2004 23w 0d C-S j incis Neona farrah Demis e Comments:abruption, st illbirth 2010 Term F C-Sect ion Livac nguyen Last Filed Vital Signs Vital Sign Reading [...] 4:23 AM CDT Height 167.6 cm (5' 6) 08/31/2023 4:23 AM CDT Body Mass Index [...] (2 - Pfizer risk series) 03/30/2022 03/09/2022 Cervical Cancer Screening 05/13/2024 05/13/2023, Regular Well Visit/Exam 18-64 05/13/2024 05/13/2023 Influenza Vaccine (#1) 2025 07/29/2017, 2016 Procedures Procedure Name Priority Date/Time Associated Diagnosis Comments HIGH RISK HPV DNA DETECTION WITH GENOTYPING Routine 05/13/2023 4:45 PM BOOK SALESMAN Cervical cancer screening from Last 3 Months or Most Recently Relevant to Health Maintenance Results * High Risk HPV DNA Detection with Genotyping (Molecular component) (05/13/2023 4:45 PM BOOK SALESMAN) HPV HR 16 Not Detected Not Detected [facility] HPV HR 18 Not Detected Not Detected [facility] HPV HR Non 16/18 Not Detected Not Detected [facility] Comment: Interpretive Data Nucleic acid amplification for [...] this test have been verified by the [facility] Molecular Infectious Disease laboratory. Correlate with separately reported cytology results, as applicable. Interpretive data last revised 22 Endocervical 05/13/2023 4:45 PM BOOK SALESMAN 05/14/2023 1:27 PM BOOK SALESMAN Narrative [facility] - 05/15/2023 6:46 AM BOOK SALESMAN Clinical history and diagnosis->screening Number of vials->1 Testing type->Screening Last menstrual period (date if known)->unk Menstrual status->Postmenopausal us Jyotsna Nan Espinosa MD LAB BODY FLUID S AND STOOLS ORDERABLES Final Result [facility] [place] [address] from Last 3 Months or Most Recently Relevant to Health Maintenance Insurance [facility] HMO/PPO Address: [address] [address] [place] [address] [facility] [place] [address] [facility] HMO/PPO Address: [address] [address] [place] [address] [facility] HMO/PPO Address: [address] [place] [address] [facility] Advance Directives For more information, please contact: [phone] * Full Code (Latest Code Status on File) Date Activated Date Inactivated Comments 08/31/2023 4:14 AM 09/05/2023 4:44 PM * Full Code Date Activated Date Inactivated Comments 04/19/2022 2:26 PM 04/25/2022 4:[address] Collections Officer Relationship Specialty Start Date End Date Kofi Powell MD [address] [address] PCP - General Family Medicine 04/21/22 Ricky Michel MD [address] [place] [address] Consulting Physician Internal Medicine 04/25/22 Maribell Simeon MD [address] [place] [address] Consulting Physician Otolaryngology 05/22/23 Betzy Hannah, [facility] [address] [facility] [address] Alligator Trapper Infectious Diseases 12/10/22
--- OUTSIDE RECORDS SUMMARY | 2025-03-04 08:43 | XMS_ITS | Clinical Summary ---
Author Organization [facility] Address [address] [place] [address] Phone Care Team Providers Care Battery Charger Conveyor Line Name Role Phone Tai Murguia MD Primary [...] on file Legal Sex Female 2:52 AM SPINNING LATHE OPERATOR Gender Identity Not on file Sexual [...] 86.2 kg (190 lb) 04/20/2020 10:52 AM SPINNING LATHE OPERATOR Height 167.6 cm (5' 6) 04/20/2020 10:52 AM SPINNING LATHE OPERATOR Body Mass Index 30.67 04/20/2020 10:52 AM SPINNING LATHE OPERATOR Plan of Treatment Health Maintenance Due Date Last Done Comments DTAP/TDAP/TD VACCINES (1 - Tdap) 1988 HEPATITIS B VACCINES (1 of 3 - 19+ 3-dose series) 11/16 ZOSTER VACCINE (1 of 2) 1988 HPV/Cotest (21-29) 1990 CERVICAL CANCER SCREENING 12/14/1999 HPV/Cotest (30-65) 12/14/1999 PAP SMEAR 12/14/1999 BREAST CANCER SCREENING 2009 COLORECTAL SCREENING 2014 Colorectal Cancer Screening 2014 FIT-DNA Q 3 years 2014 FIT/FOBT Q 1 year 2014 Flex Sig/CT Colonography Q 5 years 2014 INFLUENZA VACCINE (#1) 2025 Insurance [facility] OPTIONS PPO [id number] Care Teams Battery Charger Conveyor Line Relationship Specialty Start Date End Date Tai Murguia MD PCP - General Internal Medicine 11/26/18
--- OUTSIDE RECORDS SUMMARY | 2025-03-04 08:46 | XMS_ITS | Clinical Summary ---
Author Organization [facility] Address [facility]ly [facility] [place] [address] Care Team Providers Care Highway Truck Driver Name Role Phone Vijaya Paul MD Unavailable Kofi Powell MD Primary Care Provider [phone] Allergies Active Allergy Reactions Criticality Noted Date [...] CT scan from the emergency department [facility]. 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 04/01/2019 Overview (04/01/2019): Added automatically from request for surgery [id number] FERNANDEZ (nonalcoholic steatohepatitis) 03/15/2019 Rheumatoid arthritis ([facility]) 8 Overview (05/13/2018): Transitioned From: Joint pain Medication management 07/04/2016 BMI 29.0-29.9,adult 07/04/2016 Overview (05/13/2018): Transitioned From: BMI 31.0-31.9,adult Nicotine dependence 07/04/2016 Factor V Leiden mutation ([facility]) 03/14/2016 Anxiety 03/14/2016 Retinal vein occlusion 12/28/2009 Overview (12/20/2020): Overview: In 08/2008, per progress note by Dr. Hilario. In 08/2008, per progress note by Dr. Hilario. Resolved Problems Problem Noted Date Diagnosed Date Resolved Date Tinea pedis, right 02/10/2018 8 Advanced maternal age in 12/07/2009 05/14/2018 Placental abruption ([facility]) 12/07/2009 05/14/2018 Overview (05/14/2018): Overview: G3 @ 23wk HCV Neg Previous delivery, antepartum condition or complication ([facility]) 12/07/200904/18 Overview (05/14/2018): Overview: Hx of c/s x3 Supervision of other high ri sk pregnancies, unspecified trimester ([facility]) 12/07/2009 05/14/20 18 Overview (05/14/2018): Overview: O+/I/-/- Consult only- Dr. Angie Zuluaga Neg pap Family History Medical History Relation Comments Cardiac Disorder Father Hypertension Father [place] Father Arthritis Mother Glaucoma Mother Osteoporosis Mother Cardiac Disorder Other CT Other Malignant Neoplasm Paternal Grandfather Relation Status Comments Father Mother Other Paternal Grandfather Social History Tobacco Use Types Packs/Day Years Used Date Smoking Tobacco: Every Day Cigarettes Smokeless Tobacco: Never Tobacco Cessation:Counseling Given: Yes Alcohol Use Standard Drinks/Week Comments Not Currently 0 (1 standard drink = 0.6 oz pur e alcohol) Social [facility] Utilities Answer Date Recorded In the [...] place to sleep or slept in a detention (including now)? No 08/27/2023 Education Answer Date [...] 3:40 AM CDT Height 167.6 cm (5' 6) 08/27/2023 12:4 5 PM CDT Body Mass Index 33.55 08/27/2023 12:45 PM CDT Plan of Treatment Health Maintenance Due Date Last Done Comments Cervical Cancer Screening Pap Smear (Age 30 to 64) Every 3 Years 1969 Colorectal Cancer Screening Colonoscopy (10 Years) 1969 DTaP, Tdap and Td Vaccines (1 - Tdap) 1988 Hepatitis B Vaccines (1 of 3 - 19+ 3-dose series) 1988 Pneumococcal Vaccine: 50+ Years (1 of 2 - PCV) 1988 Cervical Cancer Screening Pap with HPV Testing (Age 30 to 64) Every 5 Years 12/14/1999 Cervical Cancer Screening with HPV 12/14/1999 Mammogram Screening 2009 Zoster Vaccines (1 of 2) 12/14/2019 Annual Physical 02/24/2020 02/23/2019 COVID-19 Vaccine ( season) 2025 03/09/2022 Hepatitis C Completed 06/25/2023, 02/2024, 10/12/2021, Additional history exists Meningococcal B Vaccine Aged Out No l onger eligible based on patient's age to complete this topic Meningococcal Vaccine Aged Out No les heydi eligible based on patient's age to complete this topic RSV Immunizations Under 20 Months Aged Out No longer eligible based on patient's age to complete this topic Insurance [facility] UMR Advance Directives * Full Code (Latest Code Status on File) Date Activated Date Inactivated Comments 08/27/2023 4:17 PM 08/30/2023 2:50 PM * Full Code Date Activated Date Inactivated Comments 04/15/2022 6:21 PM 04/19/2022 3:[address] Truck Driver Relationship Specialty Start Date End Date Kofi Powell MD [address] [facility] [address] [place] [address] PCP - General FAMILY PRACTICE 04/12/22 [place] [address] [facility]. [facility] [address] [place] [address] Consulting Physician RHEUMATOLOGY 02/10/19
--- OUTSIDE RECORDS SUMMARY | 2025-03-04 08:46 | XMS_ITS | Encounter Summary ---
Author Organization [facility] Address [facility] [place] [address] Care Team Providers Care Clinical Quality Rn Name Role Phone Tai Murguia MD Primary Care Provider [phone] Rafael Humphrey MD Unavailable Unavailable Vijaya Paul MD Unavailable Kofi Powell MD Primary Care Provider [phone] Encounter Details Date Type Department Care Team (Late st Contact Info) Description 10/25/2016 Abstract [facility] AT [address] [address] Adan Caldwell MA Social History Tobacco Use [...] documented as of this encounter Care Teams Clinical Quality Rn Relationship Specialty Start Date End Date Tai Murguia MD PCP - General INTERNAL MEDICINE 10/15/16 04/11/22 Kofi Powell MD [address] [place] [address] PCP - General FAMILY PRACTICE 04/12/22 Rafael Humphrey MD [place] [employer] Driver CARDIOVASCULAR DISEASE 10/22/16 12/11/19 [place] [address] [facility]. [facility] [address] [place] [address] Consulting Physician RHEUMATOLOGY 02/10/19 documented as of this encounter
[2025-03-04 08:47] VITALS: BP 96/57; PULSE 66; RESP 18; TEMP 36.1; O2SAT 100
--- NOTE | 2025-03-04 08:47 | ED_ITS ---
HPI - Female Genitourinary General Chief complaint: Urogenital-Female Stated complaint: UTI Time Seen by Provider: 03/04/25 08:47 Source: patient Mode of arrival: ambulatory Limitations: no limitations History of Present Illness HPI Narrative: 54 yo F presents with c/o urinary frequency, urgency, dysuria starting around 4am. Prior to that had been feeling fatigued for several days. No ABD or back pain. Took Azo this AM. all systems reviewed and negative except as noted above. Related Data Home Medications ?Medication ?Instructions ?Recorded ?Confirmed ?Last Taken ?Type cholecalciferol (vitamin D3) 50 50 mcg PO DAILY 11/27/24 Unknown History mcg (2,000 unit) capsule (Vitamin D3) uuhpltgv-sox-pjuqg acid 0.4 1 tablet PO DAILY 06/20/21 11/27/24 Unknown History mg-lycopene 300 mcg-lutein 250 mcg tablet (Centrum Silver) estradiol 0.01% (0.1 mg/gram) vaginal 03/21/23 5 Unknown History vaginal cream rituximab 10 mg/mL IV 03/04/25 Unknown History concentrate,intravenous (Rituxan) Allergies Allergy/AdvReac Type Severity Reaction Status Date / Time codeine Allergy Mild Rash Verified 03/04/25 08:40 nitrofurantoin Allergy Unknown Skin Verified 11/27/24 14:57 Reaction Penicillins Allergy Unknown Unknown Verified 11/27/24 14:57 [facility] Past Medical History Medical History Smoking Vitamin D deficiency Factor V Leiden Rheumatoid arthritis Surgical History Surgical History History of cholecystectomy Family History Family History Father Diabetes mellitus Hypertension Mother Family history of arthritis Social History Social History Smoking packs per day: 1 Smoking cigarettes per day: 20.0 Years smoked: 38 Smoking pack-years: 38.00 Smoking status: Former smoker Tobacco type: cigarettes Second hand tobacco smoke exposure: No Smoking end date: 04/08/22 Alcohol intake: current Drinks per week: 0 Substance use: former Substance use type: marijuana Other substance usage details: edibles Last use: months Lack of Transportation: No Lack of Food: Never True Current Housing: I Have Housing Concerned About Future Housing: No Difficulty Paying Gas/Electric Bills: No Difficulty Paying for Meds: No Currently Unemployed: No Education: Trade/Vocational Certificate Difficulty w/ Childcare or Family Care: No Living arrangements: with family Occupation/Education: occupation Gender identity (if verbalized by the patient): Female Sexual Orientation (if Verbalized by the Patient): Straight or Heterosexual Spiritual care concerns: No Comments At time of signature, agree with nursing past medical, surgical, social and family history. There is no relevant family history pertinent to the presenting complaint. Exam Narrative: GENERAL: This is a well-nourished, well-developed patient, in no apparent distress. HEAD: normocephalic, atraumatic. EYES: PERRL. Sclera clear/white. Vision is grossly intact. EARS: External ears normal NOSE: External nose normal NECK: Neck supple, non-tender without lymphadenopathy, masses or thyromegaly. CARDIOVASCULAR: Regular rate and rhythm without murmurs, gallops, or rubs. RESPIRATORY: Clear to auscultation. Breath sounds equal bilaterally. No wheezes, rales, or rhonchi. SKIN: warm, Dry, intact with no suspicious lesions or rash, good texture and turgor. NEURO: awake, alert, and oriented to person, place and time. There were no obvious focal neurologic abnormalities. EXTREMITIES: No joint tenderness, effusion, or edema noted. Course Course Level of Care: Express Care Visit Vital Signs Vital signs: Vital Signs Temperature 36.1 C L 03/04/25 08:47 Pulse Rate 66 03/04/25 08:47 Respiratory Rate 18 03/04/25 08:47 Blood Pressure 96/57 L 03/04/25 08:47 Pulse Oximetry 100 03/04/25 08:47 Oxygen Delivery Room Air 03/04/25 08:47 Temperature 36.1 C L 03/04/25 08:47 Pulse Rate 66 03/04/25 08:47 Respiratory Rate 18 03/04/25 08:47 Blood Pressure 96/57 L 03/04/25 08:47 Pulse Oximetry 100 03/04/25 08:47 Oxygen Delivery Room Air 03/04/25 08:47 Reviewed MDM - Female Genitourinary MDM Narrative Medical decision making narrative: unable to complete a urinalysis today due to color of urine from tlgc-vmd-tsonqar azo. Discussed this with patient. Urine culture ordered. Treat patient with antibiotic due to patient's symptoms. Patient is alert, nontoxic. Differential Diagnosis Differential diagnosis: Likely urinary tract infection Discharge Plan Discharge Clinical Impression: Urinary tract infection Patient Disposition: Home Condition: Stable Instructions: Antibiotic Form, Urinary Tract Infection in Women (ED) Additional Instructions: take antibiotic as prescribed until gone. May continue to take zdin-zhu-wnzudvc azo as directed on packaging to treat urinary symptoms. Drink at least 64 oz of water a day. See your doctor if not improving. Patient Language: Macedonian Prescriptions: New sulfamethoxazole-trimethoprim [Bactrim DS] 800-160 mg tablet 1 tablet PO Q12H 5 Days Qty: 10 0RF No Action Rituxan 10 mg/mL concentrate IV Centrum Silver 0.4-300-250 mg-mcg-mcg Tablet 1 tablet PO DAILY cholecalciferol (vitamin D3) [Vitamin D3] 50 mcg (2,000 unit) Capsule 50 mcg PO DAILY estradiol 0.01 % (0.1 mg/gram) cream vaginal Eliquis 5 mg tablet 5 mg PO BID Qty: 60 5RF Follow-up/Referrals: Kofi Powell MD [Primary Care Provider, Family Practice] Time of Disposition: 08:53
== END 2025-03-04 09:00 | disposition home or self-care (01) ==
PROVIDERS: Emergency Provider Nurse Practitioner Family; PCP Family Medicine
DX: N39.0 Urinary tract infection, site not specified (principal); Z87.891 Personal history of nicotine dependence; E55.9 Vitamin D deficiency, unspecified; D68.51 Activated protein C resistance; M06.9 Rheumatoid arthritis, unspecified
CPT/HCPCS: 87086; 99213; G0463

== ENCOUNTER 2025-05-30 18:24 | Emergency (ER) | payer OTHER, SELFPAY ==
--- OUTSIDE RECORDS SUMMARY | 2022-09-26 05:22 | XMS_ITS | Continuity of Care Document ---
Author Organization [facility] Address [address] [place] [address] Phone Care Team Providers Care Media Executive Name Role Phone Jag Franz MD Unavailable Unavailabl e Allergies, Adverse Reactions, Alerts Substance Reaction Status Criticality PENICILLIN Active No Information Medications Medication Instructions Dosage Effective Dates (start - stop) Status Comments RITUXAN (unknown strength) infuse by intravenous route once Not Available - Active Nasacort 55 mcg nasal spray aerosol spray 2 spray by intranasal route every day in each nostril 110 MCG - Active sample Kapspargo Sprinkle 200 mg capsule,extended release take 1 capsule by oral route every day 200 MG - Active ELIQUIS (unknown strength) take 1 tablet by oral route 2 times every day Not Available - Active VITAMIN D3 (unknown strength) Not Available - Active ALEVE (unknown strength) take 1 capsule by oral route every 12 hours as needed Not Available - Active Procedures Procedure Date OFFICE/OUTPATIENT VISIT EST OFFICE/OUTPATIENT VISIT EST OFFICE/OUTPATIENT VISIT EST OFFICE/OUTPATIENT VISIT EST OFFICE/OUTPATIENT VISIT NEW NASAL ENDOSCOPY DX Advance Directives Directive Yes / No Effective Date File Name No Information Encounters Encounter Description Practice Location Reason(s) For Visit Diagnoses Date Provider Providers Copied on Encounter [facility] , [address], [place], [address], tel:[phone] [facility] No Information 3 Osei Rm. [address], [place], [place], [id number]. tel:[phone] OFFICE/OUTPA TIENT VISIT EST [facility] , [address], [place], [address], [place] tel:[phone] [facility] Follow up (chief complaint) Rheumatoid arthritis with positive rheumatoid factor, involving unspecified siteLong COVIDLow serum IgG for ageNasal congestion 3 Osei Hamsa. [address], [place], [place], [id number]. tel:[phone] Referring Provider: Vijaya Paul, [address], [place], [address]. tel:[phone] OFFICE/OUTPA TIENT VISIT EST [facility] , [address], [place], [address], [place] tel:[phone] [facility] Follow up (chief complaint) CVID (common variable immunodeficien cy)ThrombosisO rganizing pneumoniaRecur rent sinus infectionsRheu matoid arthritis with positive rheumatoid factor, involving unspecified siteVaccinatio n declined 2 Osei Hamsa. [address], [place], [place], [id number]. tel:[phone] OFFICE/OUTPA TIENT VISIT EST [facility] , [address], [place], [address], [place] tel:[phone] [facility] Follow up (chief complaint) CVID (common variable immunodeficien cy)Organizing pneumoniaRecur rent sinus infectionsRheu matoid arthritis with positive rheumatoid factor, involving unspecified siteThrombosis 2 Osei Hamsa. [address], [place], [place], [id number]. tel:[phone] [facility] , [address], [place], [address], [place] tel:[phone] [facility] hospital f/u (chief complaint) Chronic panethmoidal sinusitisOrgan izing pneumoniaCOVID Viral infectionCVID (common variable immunodeficien cy) 2 Osei Hamsa. [address], [place], [place], [id number]. tel:[phone] OFFICE/OUTPA TIENT VISIT [facility] , [address], [place], [address], [place] tel:[phone] [facility] Follow up (chief complaint) Rheumatoid arthritis with positive rheumatoid factor, involving unspecified siteChronic coughRecurrent sinus infections 2 Osei Hamsa. [address], [place], [place], [address]. tel:[phone] Referring Provider: Vijaya Paul, [address], [place], [address]. tel:[phone] [facility] , [address], [place], [address], [place] tel:[phone] [facility] No Information 2 Osei Hamsa. [address], [place], [place], [id number]. tel:[phone] OFFICE/OUTPA TIENT VISIT NEW [facility] , [address], [place], [address], [place] tel:[phone] [facility] post covid cough (chief complaint) Chronic coughRecurrent sinus infectionsBody mass index [BMI] 26.0-26.9, adultRheumatoi d arthritis with positive rheumatoid factor, involving unspecified siteEncounter for tobacco use cessation counselingAcut e allergic rhinitis due to animal hair and dander 2 Osei Hamsa. [address], [place], [place], [id number]. tel:[phone] Referring Provider: Vijaya Paul, [address], [place], [address]. tel:[phone] Family History Family Member Type Diagnosis Age At Onset Problem Family history of Coronary a rtery disease Problem Family history of Diabetes m ellitus Immunizations Vaccine Date Status Comments SARS-COV-2 (COVID-19) vaccin e, mRNA, spike protein, LNP, preservative free, 30 mcg/0.3mL dose (The [employer]) administered Note: all 3 ; Source : Other Provider Payers Payer name Insurance type Covered democrat ID Amanda drake(heather) [id number] Social History Type Description Quantity Date Captured Comments Alcohol Use Details Unknown Caffeine Use Details Unknown Tobacco Use Status Smoking Status No Information Sex Female Chief Complaint And Reason For Visit No Information Reason For Referral Reason For Referral No Information Plan Of Treatment Date Type Action Status Goal Tobacco cessation counseling completed History Of Present Illness Encounter Date Complaint History Of Prese nt Illness Follow up Patient with the history of rheumatoid arthritis who has tried multiple biological, and the only one that has worked for her is Rutuxin - it has kept her from the arthritis becoming deforming. She still continues to have aches and pains. After a very severe COVID infection, complicated also by influenza and other upper respiratory viral infections-patient was admitted to the hospital. She had a very severe time getting better period in addition she is not vaccinated for the COVID. In the hospital her immunoglobulin level G was extremely low. She received one dose of IVIG. Since then I have been following her very closely and the numbers have come back up to normal. Patient went back for her Rituxan infusion.-The first infusion was done July 09, that night she stated she had severe tachycardia and atrial fibrillation and was in the hospital for 48 hours, 200 milligrams of metoprolol was started, no direct correlation could be made with the infusion and atrial fibrillation.-The second infusion was on July. Soon after that within 24 hours she had diarrhea does not know if she had the stomach flu she is fine right now.-She was told to come back to get immunoglobulin blood work done and that is why she is here. Last IG level was 868 with normal subclasses. This was done June 04.-Although she had the above complications both the Rituxan infusion went very well without any side effects.-Currently her nose is congested, she attributes it to the changes in seasons, no fever, no chills, she has gained weight because of all the Prednisone she has taken and the inactivity, her sleep is not the best. Sometimes she sees white flashes around her eyes although she's had a normal eye checkup.-She has discontinued smoking ever since she was in the hospital.-Next round of Rituxan will start on october the .-She has gone back to work. Follow up Initially seen a nd evaluated at [facility] where she was admitted with organizing pneumonia and respiratory failure after testing positive for influenza, COVID and the common cold virus. 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 Patient has not been vaccinated for both influenza and the COVID vaccine. She received one IVIG infusion while at the hospital. I have been following up with her IgG levels. Although they are slowly falling they are still not abnormal. Patient was given Mucinex and astelin for post nasal drainage both of which she is not taking currently. She is taking vitamin D3 and has gone back to taking the Flonase. Because of the picc line that was placed due to antibiotic infusion -patient developed thrombosis of her right forearm. Is currently on eliquis. Last blood work was done May 07, total IGA was normal at 114, I GM was also normal at 92. Normal lab IG value is 700 and patient was at 726.She wanted to come back in today to have blood work period because she's starting to feel chills in the past week they come random times and go away by itself. She's having it more at night. Patient is menopausal and also has hot flashes but tells me that these chills are different. No feverish. The chills come on before she has to urinate and she tells me that the urine is a very thin stream. Not associated with suprapubic pain. No nausea. No dizziness. She told me she went to a [employer] democr[employer] and drank wine and the next day felt like she had gained a lot of water weight. She was worried about her kidneys. also her rheumatoid arthritis has been flaring up. She has been having mild joint aches and pains especially in the small joints of her hand. After her hospitalization patient has not gone back to seeing the manufacturing engineering manager. According to patient a prior manufacturing engineering manager had given her some kind of a subcutaneous injection which caused large local reaction she cannot tell me the name. But she has failed methotrexate, orencia, and Arava today she has a headache, nasal congestion,her 12 year old daughter has also not been vaccinated attend school but patient tells me the daughter was not sick. Patient also tells me she has had no sick contacts. Patient continues to not be vaccinated to the influenza and the COVID Follow up This is another follow up for patient from the hospital. Patient was hospitalized with COVID, she became better, she was then hospitalized at an outside hospital [facility] she tested positive for influenza A comma move to [facility] tested positive for rhino and enterovirus, and then tested for COVID, organizing pneumonia, pansinusitis, was pretty sick in the hospital with multiple antibiotics and antivirals. She was noted to have T cell and B cell deficiency also and was given one dosage of IVIG in the hospital. The patient's past history involved rheumatoid arthritis with the Rituxan infusion. Patient does not and will not get vaccinated for both the flu shot and the COVID shot. Her significant other is in the room with her today and also does not want her to get vaccinated because he was sick after he got vaccinated. They have a 12 year old child who is not vaccinated. They will be having parents over for Thanksgiving.Patient has been started on Plavix after she saw me last time period she now has a blood clot (unsure if it is superficial or deep vein thrombosis) of her right upper arm where the PICC line was - she also has factor 5 Leiden deficiency.Otherwise she thinks she is slowly improving, the headaches are definitely better, she feels a little foggy at times. Portion is the drainage is also better she does not gag or have emesis . Ears pop from time to time and she feels that her right side of the face (same side as where they are concerned about the blood clot) is swollen when compared to the left side of the face. No teeth or gum infection. No bleeding. She can take deep breaths in and out but sometimes feels a little pain in her chest. I had asked her to use Flonase twice a day because she did not tolerate the azelastine - she's only using it once a day. hospital f/u This is a follow up visit for patient from the hospital. Patient had a severe respiratory infection, she has tested positive for COVID multiple times, again this time she tested positive for COVID, followed by positive for influenza, and positive for rhinovirus and enterovirus. Bronchoscopy was negative. She was treated in the hospital with antivirals and antibiotic. She has been asked to stay away from work for some time. She was noted to have banned sinusitis which was assumed either to be from viral or bacterial. This is a follow up visit for her period she was also put on dexamethasone for the chronic cough and the inflammation she had period currently patient states that her head is still congested but it is getting better. Good sense of smell and taste is back. She feels that the right side of her face is slightly swollen and the right ear feels pressure. 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 currently she needs to go back to work by May 19.Patient is currently not smoking, she has a little cough, chest is fine. But she has not done much. Sleep is getting better. Appetite is also improving.Patient was given Rituxan for rheumatoid arthritis, currently not on any medication, she was noted to have severe immune deficiency. Because she had so much inflammation and was sick IVIG was infused in the hospital and she did very well. Follow up This is a follow up visit for 51 year old patient who was last seen on 08 March, patient received the toxin for rheumatoid arthritis but after she tested positive for COVID she did not feel good at all.She kept having cold like symptoms sinus pressure constant postnasal drainage and cough. History of pneumonia in 2019 twice. Also tested positive for the flu. Patient works for hair judaism and had some kind of a reactive airway disorder. With her previous appointment rhinoscopy was done, she had both sinus congestion and an infection. She was asked to do nasal rinses twice a day intranasal steroid twice a day intranasal antihistamine twice a day. This has really helped. I gave her 100 g once a day of trelegy as she also had a cough and a congested chest. She was on a Z pack and I added 10 more days of 250 mg is it through myosin but she is still taking. In addition she is making an effort to quit smoking.Cough is 96% better occasional but mild postnasal drainage, runny nose. She had a little queasy stomach and diarrhea from the antibiotic. Headache is better.She forgot to mention to me but in the past she has passed out from hypoglycemic episodes. She is scheduled to get an echocardiogram soon.She is asking if she could restart the reduction infusions because she feels that her rheumatoid arthritis is flaring up, joint pains and fatigue. post covid cough Referred by her manufacturing engineering manager Dr. Paul, very pleasant 51 year old patient who is currently on Rituxin For rheumatoid arthritis tested positive for COVID January 17, 2022. Since then she has not been able to shake A cough that affects her quality of life. She has sore throat. She feels that short of breath difficult to take a deep breath which makes a cough again. Primary care physician did a PCR test for influenza and Covid and found that she was still continuing to be positive. Her recent infusion was early February she had no reaction with Rituxin . Blood work was done and she will have them fax it over to me. She was using nebulizer medication to help her cough up for the past two weeks. Did not help. She was recently started on a Z pack and today is day three of the Z pack.Since January 17 she has a headache, it is on top of her head. She does not feel much pressure in her face but feels it in her throat. She has absolutely no sense of smell or taste. Ears pop right more than left. Hearing is muffled and balance is slightly affected. Nose is extremely congested. Constant severe postnasal drainage, extremely thick, this makes her cough more and affects her breathing. She feels there is a constant tickle in the back of her throat. No chest tightness. When the coughing becomes worse, she can hear wheeze and sometimes she almost feels like she's going to pass out. No past history of allergies, no past history of asthma. She had pneumonia in 2019 twice, she also tested positive for the flu. 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 She has two dogs and two cats at home. She also has a hamster at home. She smokes about half a pack a day. Functional Status Date Functional Assessmen t No Information Instructions Date Instruction Additional Infor terence addendum , reviewed lab work from [facility] - normal CBC no eosinophils, neutrophil elevated t 7.7 , TSH normal, ALT AND ALK PHOS ELEAVTED Related to Recurrent sinus infections Giving encouragement to exercise Related to Body mass index [BMI] 26.0-26.9, adult Assessments Type Assessment Date No Information Patient Care Teams Name Effective Dates (start - stop) Status Members No Information
--- OUTSIDE RECORDS SUMMARY | 2025-05-30 18:28 | XMS_ITS | Clinical Summary ---
Author Organization [facility] Address [facility] [place] [address] Care Team Providers Care Security Public Safety Officer Name Role Phone Vijaya Paul MD Unavailable Kofi Powell MD Primary Care Provider [phone] Allergies Active Allergy Reactions Criticality Noted Date [...] CT scan from the emergency department [facility]. 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 04/01/2019 Overview (04/01/2019): Added automatically from request for surgery [id number] FERNANDEZ (nonalcoholic steatohepatitis) 03/15/2019 Rheumatoid arthritis 02/10/2018 Overview (05/13/2018): Transitioned From: Joint pain Medication management 07/04/2016 BMI 29.0-29.9,adult 07/04/2016 Overview (05/13/2018): Transitioned From: BMI 31.0-31.9,adult Nicotine dependence 07/04/2016 Factor V Leiden mutation 03/14/2016 Anxiety 03/14/2016 Retinal vein occlusion 12/28/2009 Overview (12/20/2020): Overview: In 08/2008, per progress note by Dr. Hilario. In 08/2008, per progress note by Dr. Hilario. Resolved Problems Problem Noted Date Diagnosed Date Resolved Date Tinea pedis, right 02/10/2018 8 Advanced maternal age in 12/07/2009 05/14/2018 Placental abruption 12/07/2009 05/14/20 18 Overview (05/14/2018): Overview: G3 @ 23wk HCV Neg Previous delivery, antepartum condition or complication 12/07/2009 05/14/2018 Overview (05/14/2018): Overview: Hx of c/s x3 Supervision of other high ri sk pregnancies, unspecified trimester 12/07/2009 05/14/2018 Overview (05/14/2018): Overview: O+/I/-/- Consult only- Dr. Angie Zuluaga Neg pap Family History Medical History Relation Comments Cardiac Disorder Father Hypertension Father [place] Father Arthritis Mother Glaucoma Mother Osteoporosis Mother Cardiac Disorder Other [place] Other Malignant Neoplasm Paternal Grandfather Relation Status Comments Father Mother Other Paternal Grandfather Social History Tobacco Use Types Packs/Day Years Used Date Smoking Tobacco: Every Day Cigarettes Smokeless Tobacco: Never Tobacco Cessation:Counseling Given: Yes Alcohol Use Standard Drinks/Week Comments Not Currently 0 (1 standard drink = 0.6 oz pur e alcohol) Social [facility] Utilities Answer Date Recorded In the [...] Td Vaccines (1 - Tdap) 1988 Hepatitis A Vaccines (1 of 2 - Risk 2-dose series) 1988 Hepatitis B Vaccines (1 of 3 - 19+ 3-dose series) 1988 Pneumococcal Vaccine: 50+ Years (1 of 2 - PCV) 1988 Cervical Cancer Screening Pap with HPV Testing (Age 30 to 64) Every 5 Years 12/14/1999 Cervical Cancer Screening with HPV 12/14/1999 Mammogram Screening 2009 Zoster Vaccines (1 of 2) 12/14/2019 Annual Physical 02/24/2020 02/23/2019 COVID-19 Vaccine (2 - season) 2025 03/09/2022 Influenza Adult (#1) 2025 Hepatitis C Completed 06/25/2023, 09/16, 10/18/2020, Additional history exists Meningococcal B Vaccine Aged Out No l onger eligible based on patient's age to complete this topic Meningococcal Vaccine Aged Out No les heydi eligible based on patient's age to complete this topic RSV Immunizations Under 20 Months Aged Out No longer eligible based on patient's age to complete this topic Insurance [facility] UMR Advance Directives * Full Code (Latest Code Status on File) Date Activated Date Inactivated Comments 08/27/2023 4:17 PM 08/30/2023 2:50 PM * Full Code Date Activated Date Inactivated Comments 04/15/2022 6:21 PM 04/19/2022 3:21 PM Care Teams Security Public Safety Officer Relationship Specialty Start Date End Date Kofi Powell MD [address] [facility] [address] [place] [address] PCP - General FAMILY PRACTICE 04/12/22 [place] [address] [facility] [facility] [address] [place] [address] Consulting Physician RHEUMATOLOGY 02/10/19
--- OUTSIDE RECORDS SUMMARY | 2025-05-30 18:28 | XMS_ITS | Clinical Summary ---
Author Organization [facility] Address [address] [place] [address] Phone Care Team Providers Care Director Of Web Marketing Name Role Phone Provider, None Primary Care [...] Screening Completed 022 Human Papillomavirus (HPV) Immunization (No Doses Required) Completed Meningococcal Immunization (ACWY) Aged Out No longer eligible based on patient's age to complete this topic Rotavirus Immunization Aged Out No lo nger eligible based on patient's age to complete this topic Insurance [employer] Care Teams Director Of Web Marketing Relationship Specialty Start Date End Date Provider, None [place] PCP - General 12/17/21
--- OUTSIDE RECORDS SUMMARY | 2025-05-30 18:28 | XMS_ITS | Clinical Summary ---
Author Organization [facility] Address [address] [place] [address] Phone Care Team Providers Care Rod Puller Name Role Phone Tai Murguia MD Primary [...] on file Legal Sex Female 2:52 AM WELDER TACK Gender Identity Not on file Sexual Orientation Not on file Last Filed Vital Signs Vital Sign Reading Time Taken Comments Blood Pressure 102/68 08/25/2019 1:00 PM CDT Pulse 78 08/25/2019 1:00 PM CDT Temperature - - Respiratory Rate 16 08/25/2019 1:00 PM CDT Oxygen Saturation 96% 08/25/2019 1:00 PM CDT Inhaled Oxygen Concentration - - Weight 86.2 kg (190 lb) 04/20/2020 10:52 AM WELDER TACK Height 167.6 cm (5' 6) 04/20/2020 10:52 AM WELDER TACK Body Mass Index 30.67 04/20/2020 10:52 AM WELDER TACK Plan of Treatment Health Maintenance Due Date [...] years 2014 INFLUENZA VACCINE (#1) 2025 Insurance [facility] OPTIONS PPO [id number] Care Teams Rod Puller Relationship Specialty Start Date End Date Tai Murguia MD PCP - General Internal Medicine 11/26/18
--- OUTSIDE RECORDS SUMMARY | 2025-05-30 18:28 | XMS_ITS | Clinical Summary ---
Author Organization [facility] Address [address] [place] [address] Care Team Providers Care Driver Operator Name Role Phone Kofi Powell MD Primary Care Provider Ricky Michel MD Unavailable [phone] Maribell Simeon MD Unavailable [phone] Allergies Active Allergy Reactions Criticality Noted Date Comments Codeine Rash Medium Penicillins Other (See comments) Low 03/28/2022 Patient unsure of reaction - father allergic Medications multivit minerals-iron- FA-calcium (THERA-M) 9 mg iron-400 mcg tabletIndicati ons:Vitamin Deficiency Prevention Take 1 tablet by mouth [...] (six) hours as needed for pain Active cyclobenzaprin e (FLEXERIL) 5 mg tablet Take 1 tablet [...] estradioL (ESTRACE) 0.01 % (0.1 mg/gram) vaginal creamIndicatio ns:Postmenopau jose atrophic vaginitis Insert 2 g into the vagina daily 42.5 g 5 Active estradioL (ESTRACE) 0.01 % (0.1 mg/gram) vaginal creamIndicatio ns:Postmenopau jose atrophic vaginitis APPLY 1/4 APPLICATOR (1G) TO THE VAGINA 2-3 TIMES PER WEEK (SUCH SATURDAY//SATURDAY) 42.5 g 3 4 05/20/20 25 Discontinu ed(Reorder ) Active Problems Problem Noted Date Diagnosed Date [...] w/r/t gut microbiome. Referred to ADA and [employer]mobile websites for additional information on topics including [...] (04/20/2022): Added automatically from request for surgery [id number] Right upper lobe pulmonary nodule 06/10/2020 Overview (03/18/2023): Noted on CT scan from the emergency department the [facility]. 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 04/01/2019 Overview (03/18/2023): Added automatically from request for surgery [id number] FERNANDEZ (nonalcoholic steatohepatitis) 03/15/2019 Factor V Leiden [...] 12/07/2009 Overview (03/18/2023): O+/I/-/- Consult only- Dr. 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 Never 09/03/2023 Do you belong to any clubs o r organizations such as alevism groups, unions, fraternal or athletic groups, or [...] place to sleep or slept in a usp (including now)? No 09/03/2023 Personal Safety Answer Date Recorded Have you ever been in or are you currently in a harmful physical or emotional relationship or is someone making you feel afraid or unsafe? Denies 08/31/2023 Comments No Sex and Gender Information Value Date Recorded Sex Assigned at Not on file Legal Sex Female 8:24 PM DANCE THERAPIST Gender Identity Not on file Sexual Orientation [...] DETECTION WITH GENOTYPING Routine 05/13/2023 4:45 PM DANCE THERAPIST Cervical cancer screening from Last 3 Months or Most Recently Relevant to Health Maintenance Results * High Risk HPV DNA Detection with Genotyping (Molecular component) (05/13/2023 4:45 PM DANCE THERAPIST) HPV HR 16 Not Detected Not Detected [facility] HPV HR 18 Not Detected Not Detected [facility] HPV HR Non 16/18 Not Detected Not Detected [facility] Comment: Interpretive Data Nucleic acid amplification for [...] this test have been verified by the [facility] Molecular Infectious Disease laboratory. Correlate with separately reported cytology results, as applicable. Interpretive data last revised 22 Endocervical 05/13/2023 4:45 PM DANCE THERAPIST 05/14/2023 1:27 PM DANCE THERAPIST Narrative [facility] - 05/15/2023 6:46 AM DANCE THERAPIST Clinical history and diagnosis->screening Number of vials->1 Testing type->Screening Last menstrual period (date if known)->unk Menstrual status->Postmenopausal Jyotsna Espinosa MD LAB BODY FLUID S AND STOOLS ORDERABLES Final Result [facility] Department [place] [address] from Last 3 Months or Most Recently Relevant to Health Maintenance Insurance [facility] [place] [address] [facility] [place] [address] [facility] Advance Directives For more information, please contact: [phone] * Full Code (Latest Code Status on File) Date Activated Date Inactivated Comments 08/31/2023 4:14 AM 09/05/2023 4:44 PM * Full Code Date Activated Date Inactivated Comments 04/19/2022 2:26 PM 04/25/2022 4:03 PM Care Teams Driver Operator Relationship Specialty Start Date End Date Kofi Powell MD [address] [place] [address] PCP - General Family Medicine 04/21/22 Ricky Michel MD [address] [place] [address] Consulting Physician Internal Medicine 04/25/22 Maribell Simeon MD [address] [facility] [address] [place], [place] [id number] Consulting Physician Otolaryngology 05/22/23 eBtzy Hannah, [facility] [address] [facility] [address] Deputy Coroner Infectious Diseases 12/10/22
--- OUTSIDE RECORDS SUMMARY | 2025-05-30 18:28 | XMS_ITS | Encounter Summary ---
Author Organization [facility] Address [facility] [place] [address] Care Team Providers Care Milk And Cream Grader Name Role Phone Tai Murguia MD Primary Care Provider [phone] Rafael Humphrey MD Unavailable Unavailable Vijaya Paul MD Unavailable Kofi Powell MD Primary Care Provider [phone] Encounter Details Date Type Department Care Team (Late st Contact Info) Description 10/25/2016 Abstract [facility] AT [address] [id number] Adan Caldwell MA Social History Tobacco Use [...] documented as of this encounter Care Teams Milk And Cream Grader Relationship Specialty Start Date End Date Tai Murguia MD PCP - General INTERNAL MEDICINE 10/15/16 04/11/22 Kofi Powell MD [address] [place] [address] PCP - General FAMILY PRACTICE 04/12/22 Rafael Humphrey MD [facility] [employer] CARDIOVASCULAR DISEASE 10/22/16 12/11/19 [place] [address] [address] [facility] [address] [place] [address] Consulting Physician RHEUMATOLOGY 02/10/19 documented as of this encounter
--- NOTE | 2025-05-30 18:30 | ED_ITS ---
HPI - URI/Sore Throat General Chief Complaint: Upper Respiratory Infection Stated Complaint: Sinus Infection patient presents to the [facility] with complaints of sinus pain, nasal congestion, nasal drainage, sore throat, pressure ears, fatigue and productive cough that began to worsen about 2 weeks ago. Patient reports intermittent symptoms. Patient does note using [id number]-[id number]-ioheedn cough cold medication and Flonase. no known sick contacts. Denies fever, chills, body aches, dizziness, shortness of breath, wheezing, nausea, vomiting, diarrhea. Related Data Home Medications ?Medication ?Instructions ?Recorded ?Confirmed ?Last Taken ?Type cholecalciferol (vitamin D3) 50 50 mcg PO DAILY 11/27/24 Unknown History mcg (2,000 unit) capsule (Vitamin D3) xavydklo-yrl-tgshf acid 0.4 1 tablet PO DAILY 06/20/21 11/27/24 Unknown History mg-lycopene 300 mcg-lutein 250 mcg tablet (Centrum Silver) estradiol 0.01% (0.1 mg/gram) vaginal 03/21/23 5 Unknown History vaginal cream rituximab 10 mg/mL IV 03/04/25 Unknown History concentrate,intravenous (Rituxan) Allergies Allergy/AdvReac Type Severity Reaction Status Date / Time codeine Allergy Mild Rash Verified 05/30/25 18:25 Penicillins Allergy Mild Rash Verified 05/30/25 18:25 nitrofurantoin Allergy Unknown Skin Verified 05/30/25 18:25 Reaction Review of Systems Constitutional: Constitutional: Reports as per HPI, Denies chills, Reports fatigue, Denies fever(s) and Denies weakness Eyes: Eyes: Reports no additional eye complaints ENT: Reports as per HPI, Denies vertigo, Denies dizziness, Reports nasal congestion and Reports sore throat Comments: Sinus pain Cardiovascular: Cardiovascular: Reports no additional cardiovascular complaints Respiratory: Respiratory: Reports as per HPI, Reports chest congestion, Reports cough, Denies dyspnea and Denies wheezing Gastrointestinal: Gastrointestinal: Reports no additional gastrointestinal complaints Genitourinary: Genitourinary: Reports no additional female genitourinary complaints Musculoskeletal: Musculoskeletal: Reports as per HPI, Denies back pain and Denies myalgias Integumentary/Breasts: Skin/Breast: Reports as per HPI, Denies pruritus, Denies erythema and Denies rash Neurologic: Reports as per HPI, Denies vertigo, Denies dizziness, Reports headache(s), Denies numbness and Denies weakness Psychiatric: Psychiatric: Reports no additional psychiatric complaints Endocrine: Endocrine: Reports no additional endocrine complaints Hematologic/Lymphatic: Hematologic/Lymphatic: Reports no additional hematologic/lymphatic complaints Allergic/Immunologic: Allergic/Immunologic: Reports as per HPI Comments: seasonal allergies [facility] Past Medical History Medical History Smoking Vitamin D deficiency Factor V Leiden Rheumatoid arthritis Surgical History Surgical History History of cholecystectomy Family History Family History Father Diabetes mellitus Hypertension Mother Family history of arthritis Social History Social History Smoking packs per day: 1 Smoking cigarettes per day: 20.0 Years smoked: 38 Smoking pack-years: 38.00 Smoking status: Former smoker Tobacco type: cigarettes Second hand tobacco smoke exposure: No Smoking end date: 04/08/22 Alcohol intake: current Drinks per week: 0 Substance use: former Substance use type: marijuana Other substance usage details: edibles Last use: months Lack of Transportation: No Lack of Food: Never True Current Housing: I Have Housing Concerned About Future Housing: No Difficulty Paying Gas/Electric Bills: No Difficulty Paying for Meds: No Currently Unemployed: No Education: Trade/Vocational Certificate Difficulty w/ Childcare or Family Care: No Living arrangements: with family Occupation/Education: occupation Gender identity (if verbalized by the patient): Female Sexual Orientation (if Verbalized by the Patient): Straight or Heterosexual Spiritual care concerns: No Exam Const: General: healthy appearing and no acute distress Nutritional Appearance: well nourished Orientation/consciousness: patient oriented x3 Limitations: no limitations HENMT: Head: normal to inspection Ears: external ears normal and TM's normal bilaterally Face/Nose/Sinus: Normal external nose present, Normal nares present and Nasal discharge present Face and sinus: normal facial exam and sinus tenderness maxillary Mouth: Yes Normal oral and palatal mucosa present, Yes lip normal and Yes moist mucous membranes Throat: posterior oropharynx abnormal Other: mild erythema with no edema or exudate Neck: Neck: normal visual inspection and no lymphadenopathy Resp: Effort & Inspection: normal respiratory effort Auscultation: clear to auscultation bilaterally Cardio: Rate: regular rate Rhythm: regular rhythm Skin: General skin exam: normal color Rashes: no rashes Wounds: no wounds Neuro: General: patient oriented x3 Speech: normal speech Gait exam (Neuro): Normal gait present Psych: Mental Status: mental status grossly normal Affect: normal affect Attitude: cooperative Course Course Level of Care: Express Care Visit MDM MDM Narrative Medical decision making narrative: 2 weeks of symptoms on immune suppressing medication The patient was evaluated by myself in the express care. History is obtained from patient who is an independent historian and physical exam was performed. Available medical records were reviewed at this time. Exam findings show no acute concerns or changes; patient is non-toxic appearing and is in no distress. Patient is appropriate for outpatient treatment and follow-up. I have evaluated and discussed social determinants of health with the patient that could potentially impact subsequent diagnosis and treatment plans. Differential diagnosis and treatment plan were discussed with the patient. Patient agrees with discussion and after shared medical decision making agrees with plan of care. All questions were answered to the patient's satisfaction. Differential Diagnosis Differential Diagnosis: cough, sinusitis, pneumonia, bronchitis Medical Records I have reviewed the following patient records and this information was taken into consideration when formulating the assessment and plan.: previous labs, previous ER visits, previous hospitalizations and previous clinic visits Discharge Plan Discharge Clinical Impression: Sinusitis Patient Disposition: Home Condition: Stable Instructions: Antibiotic Form, Sinusitis (ED) Additional Instructions: Take the antibiotics as directed for the entire course. Do not miss any doses. What you are taking antibiotics and is recommended to take a probiotic or have yogurt daily to return the good gut bacteria to your system. This can also help with acute diarrhea while taking antibiotics. It can take 24-48 hours for the antibiotics to start to relieve your symptoms continue to take these medications to help with various symptoms: Tylenol or Motrin for pain, headache, or fever Flonase/fluticasone or Nasacort/triamcinolone nasal spray- helps with congestion and nasal drainage. Sudafed/pseudoephedrine helps with sinus pain and congestion. Caution with high blood pressure. Use a humidifier or vaporizer at night. Drink plenty of water. 8-10 glasses per day. Mucinex/guaifenesinas directed and be sure to take with 8oz of water. Warm compresses over the forehead and cheeks to promote sinus drainage. Return to urgent care or go to the ER for new or worsening symptoms. Follow up with Primary provider if not improved after 1 week. Patient Language: Estonian Prescriptions: New doxycycline monohydrate 100 mg capsule 100 mg PO BID Qty: 20 0RF promethazine-DM 6.25-15 mg/5 mL syrup 5 ml PO Q4-6H PRN (Reason: cough) Qty: 118 0RF No Action Rituxan 10 mg/mL concentrate IV Centrum Silver 0.4-300-250 mg-mcg-mcg Tablet 1 tablet PO DAILY cholecalciferol (vitamin D3) [Vitamin D3] 50 mcg (2,000 unit) Capsule 50 mcg PO DAILY estradiol 0.01 % (0.1 mg/gram) cream vaginal Eliquis 5 mg tablet 5 mg PO BID Qty: 60 5RF Follow-up/Referrals: Kofi Powell MD [Primary Care Provider, [facility]] Time of Disposition: 18:52
[2025-05-30 18:31] VITALS: BP 105/59; PULSE 72; RESP 18; TEMP 35.9; O2SAT 100
== END 2025-05-30 18:53 | disposition home or self-care (01) ==
PROVIDERS: Emergency Provider Nurse Practitioner Family; PCP Family Medicine
DX: J32.9 Chronic sinusitis, unspecified (principal); D68.51 Activated protein C resistance; M06.9 Rheumatoid arthritis, unspecified; E55.9 Vitamin D deficiency, unspecified; Z87.891 Personal history of nicotine dependence; Z79.01 Long term (current) use of anticoagulants
CPT/HCPCS: 99213; G0463

== ENCOUNTER 2025-06-16 12:04 | Emergency (ER) | payer OTHER, SELFPAY ==
--- NOTE | 2025-06-16 12:05 | ED.URI ---
HPI - URI/Sore Throat General Chief Complaint: Upper Respiratory Infection Stated Complaint: Flu Like Time Seen by Provider: 06/16/25 12:05 Source: patient Mode of arrival: ambulatory Limitations: no limitations History of Present Illness HPI Narrative: Patient is a 54-year-old female that presents with nausea, vomiting, chills and fever of 100.2 since yesterday. Reports cough and sinus pressure today. Was exposed to the stomach flu. Has not taken anything for symptoms. Patient has Zofran at home but states the taste of it makes her more nauseated. Related Data Home Medications ?Medication ?Instructions ?Recorded ?Confirmed ?Last Taken ?Type cholecalciferol (vitamin D3) 50 50 mcg PO DAILY 06/20/21 11/27/24 Unknown History mcg (2,000 unit) capsule (Vitamin D3) wyuztxts-rhy-tzwro acid 0.4 1 tablet PO DAILY 06/20/21 11/27/24 Unknown History mg-lycopene 300 mcg-lutein 250 mcg tablet (Centrum Silver) estradiol 0.01% (0.1 mg/gram) vaginal 03/21/23 11/27/24 Unknown History vaginal cream rituximab 10 mg/mL IV 03/04/25 Unknown History concentrate,intravenous (Rituxan) Allergies Allergy/AdvReac Type Severity Reaction Status Date / Time codeine Allergy Mild Rash Verified 06/16/25 12:18 Penicillins Allergy Mild Rash Verified 06/16/25 12:18 nitrofurantoin Allergy Unknown Skin Verified 06/16/25 12:18 Reaction Review of Systems Review of Systems: All systems reviewed & are unremarkable except as noted in HPI and below Constitutional: Constitutional: Denies body ache(s), Reports chills, Denies fatigue, Reports fever(s), Denies headache(s), Denies malaise and Denies weakness Eyes: Eyes: Denies blurry vision, Denies irritation and Denies loss of vision ENT: Denies otalgia, Denies headache(s), Denies nasal discharge, Reports sinus pain, Reports sinus pressure and Denies sore throat Cardiovascular: Cardiovascular: Denies chest pain, Denies irregular heart rhythm and Denies dyspnea Respiratory: Respiratory: Reports cough and Denies dyspnea Gastrointestinal: Gastrointestinal: Denies abdominal pain, Denies melena, Denies hematochezia, Denies diarrhea, Reports nausea and Reports vomiting Musculoskeletal: Musculoskeletal: Denies back pain, Denies myalgias and Denies arthralgias Integumentary/Breasts: Skin/Breast: Denies pruritus and Denies rash Neurologic: Denies headache(s), Denies loss of vision and Denies weakness Psychiatric: Psychiatric: Reports no additional psychiatric complaints Endocrine: Endocrine: Denies fatigue PMF Past Medical History Medical History Smoking Vitamin D deficiency Factor V Leiden Rheumatoid arthritis Surgical History Surgical History History of cholecystectomy Family History Family History Father Diabetes mellitus Hypertension Mother Family history of arthritis Social History Social History Smoking packs per day: 1 Smoking cigarettes per day: 20.0 Years smoked: 38 Smoking pack-years: 38.00 Smoking status: Former smoker Tobacco type: cigarettes Second hand tobacco smoke exposure: No Smoking end date: 04/08/22 Alcohol intake: current Drinks per week: 0 Substance use: former Substance use type: marijuana Other substance usage details: edibles Last use: months Lack of Transportation: No Lack of Food: Never True Current Housing: I Have Housing Concerned About Future Housing: No Difficulty Paying Gas/Electric Bills: No Difficulty Paying for Meds: No Currently Unemployed: No Education: Trade/Vocational Certificate Difficulty w/ Childcare or Family Care: No Living arrangements: with family Occupation/Education: occupation Gender identity (if verbalized by the patient): Female Sexual Orientation (if Verbalized by the Patient): Straight or Heterosexual Spiritual care concerns: No Comments At time of signature, agree with nursing past medical, surgical, social and family history. There is no relevant family history pertinent to the presenting complaint. Exam Const: General: cooperative, healthy appearing, comfortable, no acute distress and well nourished Nutritional Appearance: well nourished Orientation/consciousness: patient oriented x3 Limitations: no limitations HENMT: Head: normal to inspection, normocephalic and atraumatic Ears: hearing grossly normal bilaterally and external ears normal Face/Nose/Sinus: Normal external nose present, normal facial exam and face symmetric Face and sinus: normal facial exam and face symmetric Mouth: Yes lip normal Eyes: General: appearance normal, both eyes and all related structures Alignment and Position: alignment normal and position normal Periorbital: periorbital findings normal Eyelids: eyelids normal Pupils: Equal, round and reactive pupils present EOM: EOMs intact bilaterally Neck: Neck: normal visual inspection, full ROM and supple Chest: Chest palpation & inspection: normal inspection of the chest Resp: Effort & Inspection: normal respiratory effort and able to speak in complete sentences Auscultation: clear to auscultation bilaterally Cardio: Rate: tachycardic Rhythm: regular rhythm Heart sounds: S1 normal heart sound present and S2 normal heart sound present GI: Inspection: normal to inspection Skin: General skin exam: normal color and no rashes or lesions noted Neuro: General: patient oriented x3 and moves all extremities Cranial nerves: Yes Equal, round and reactive pupils present Speech: normal speech Gait exam (Neuro): Normal gait present Extrem: General: normal to inspection, full ROM and no edema Psych: Appearance: grossly normal and well kempt Mental Status: mental status grossly normal Speech and movement: Normal speech and movement present Affect: normal affect Attitude: cooperative Thought process: Normal thought process present Course Course Emergency Course: Patient is aware of diagnosis, understands and agrees to treatment plan. Anticipatory guidance given. Patient agrees to follow-up as directed and is aware of reasons to seek care at the emergency department. Portions of this record may have been created with voice recognition software Level of Care: Express Care Visit Vital Signs Vital signs: Vital Signs Temperature 36.5 C 06/16/25 12:16 Pulse Rate 115 H 06/16/25 12:16 Respiratory Rate 18 06/16/25 12:16 Blood Pressure 104/67 06/16/25 12:16 Pulse Oximetry 98 06/16/25 12:16 Oxygen Delivery Room Air 06/16/25 12:16 Temperature 36.5 C 06/16/25 12:16 Pulse Rate 115 H 06/16/25 12:16 Respiratory Rate 18 06/16/25 12:16 Blood Pressure 104/67 06/16/25 12:16 Pulse Oximetry 98 06/16/25 12:16 Oxygen Delivery Room Air 06/16/25 12:16 [facility] MDM Narrative Medical decision making narrative: Patient was negative for COVID and flu. Most likely norovirus. encourage small frequent meals and pushing fluids. Pt well hydrated appearing, in no respiratory distress, hemodynamically stable. Recommend supportive care. The patient is stable at time of discharge the clinical impression was discussed and the patient was given the opportunity to ask questions, which were addressed as completely as possible given the information available at present. Anticipatory guidance and return to care precautions were discussed and the importance of primary care follow-up was stressed and encouraged. The patient voiced understanding of the plan, indications to return, and the need for follow-up. Exam findings show no acute concerns or changes Patient is appropriate for outpatient treatment and follow-up. Differential Diagnosis Differential Diagnosis: Differential diagnostic considerations for upper respiratory infection include upper respiratory infection, croup, sinusitis, viral infection, bronchitis, influenza, gastroenteritis.? Medical Records I have reviewed the following patient records and this information was taken into consideration when formulating the assessment and plan.: previous clinic visits Lab Data MDM Lab Attestation statement: I personally reviewed the patient's lab results. Labs: Lab Results 06/16/25 Range/Units 12:34 POC Influenza A Ag Negative (Negative) POC Influenza B Ag Negative (Negative) POC SARS CoV-2 Ag Negative (Negative) Discharge Plan Discharge Clinical Impression: Gastroenteritis Patient Disposition: Home Condition: Stable Instructions: Gastroenteritis (ED) Additional Instructions: Stay hydrated. Take small sips of fluid containing electrolytes frequently(Body [place], Gatorade, Powerade, liquid IV). Eat small meals that her very bland including bananas, applesauce, rice, toast, boiled or grilled chicken, soup. Do not eat anything fried, spicy or overly acidic. You should go to the hospital if you experience return of persistent nausea and vomiting that does not resolve and does not allow you to tolerate any food or fluids, persistent fevers for greater than 2-3 more days, increasing abdominal pain that persists despite medications, persistent diarrhea, dizziness, syncope (fainting), or for any other concerns. Patient Language: Moroccan Prescriptions: No Action Rituxan 10 mg/mL concentrate IV Centrum Silver 0.4-300-250 mg-mcg-mcg Tablet 1 tablet PO DAILY cholecalciferol (vitamin D3) [Vitamin D3] 50 mcg (2,000 unit) Capsule 50 mcg PO DAILY estradiol 0.01 % (0.1 mg/gram) cream vaginal Eliquis 5 mg tablet 5 mg PO BID Qty: 60 5RF Follow-up/Referrals: Kofi Powell MD [Primary Care Provider, Family Practice] - 3 Days Time of Disposition: 12:40
--- OUTSIDE RECORDS SUMMARY | 2025-06-16 12:06 | XMS_ITS | Clinical Summary ---
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 Gender Identity Not on file Sexual Orientation Not on file Last Filed Vital Signs Vital Sign Reading Time Taken Comments Blood Pressure 102/68 08/25/2019 1:00 PM CDT Pulse 78 08/25/2019 1:00 PM CDT Temperature - - Respiratory Rate 16 08/25/2019 1:00 PM CDT Oxygen Saturation 96% 08/25/2019 1:00 PM CDT Inhaled Oxygen Concentration - - Weight 86.2 kg (190 lb) 04/20/2020 10:52 AM PEST TECHNICIAN Height 167.6 cm (5' 6) 04/20/2020 10:52 AM PEST TECHNICIAN Body Mass Index 30.67 04/20/2020 10:52 AM PEST TECHNICIAN Plan of Treatment Health Maintenance Due Date [...] years 2014 INFLUENZA VACCINE (#1) 2025 Insurance [facility] OPTIONS PPO [id number] Care Teams Manager Content Relationship Specialty Start Date End Date Tai Murguia MD PCP - General Internal Medicine 11/26/18
--- OUTSIDE RECORDS SUMMARY | 2025-06-16 12:06 | XMS_ITS | Encounter Summary ---
Author Organization [facility] Address [facility] [place] [address] Care Team Providers Care Wireless Team Member Name Role Phone Tai Murguia MD Primary Care Provider [phone] Rafael Humphrey MD Unavailable Unavailable Vijaya Paul MD Unavailable Kofi Powell MD Primary Care Provider [phone] Encounter Details Date Type Department Care Team (Late st Contact Info) Description 10/25/2016 Abstract [facility] AT [address] [id number] Adan Caldwell MA Social History Tobacco Use [...] documented as of this encounter Care Teams Wireless Team Member Relationship Specialty Start Date End Date Tai Murguia MD PCP - General INTERNAL MEDICINE 10/15/16 04/11/22 Kofi Powell MD [address] [place] [address] PCP - General FAMILY PRACTICE 04/12/22 Rafael uHmphrey MD [place] Manager Document Control CARDIOVASCULAR DISEASE 10/22/16 12/11/[address] [place] [address] [facility] [address] [place] [address] Consulting Physician RHEUMATOLOGY 02/10/19 documented as of this encounter
--- OUTSIDE RECORDS SUMMARY | 2025-06-16 12:06 | XMS_ITS | Clinical Summary ---
Author Organization [facility] Address [address] [place] [address] Care Team Providers Care Design Engineering Technician Name Role Phone Tai Murguia MD Primary Care Provider [phone] Source Comments [facility],non-owned Affiliates and Associated Physician Practices is amultiple site organization consisting of ambulatory clinics and hospital sitesin [place], [place], [place] and [place]. This disclosure is being madepursuant to the Care Everywhere program and may not contain all information available regarding this patient. Last updated 18.[facility] Allergies Active Allergy Reactions Criticality Noted Date [...] hours 60 Syringe 4 04/03/2010 Active heparin 15613 UNIT/ML injection Inject subcutaneousl y. 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
--- OUTSIDE RECORDS SUMMARY | 2025-06-16 12:06 | XMS_ITS | Clinical Summary ---
Author Organization [facility] Address [facility] [place] [address] Care Team Providers Care Chief Meteorologist Name Role Phone Vijaya Paul MD Unavailable Kofi Powell MD Primary Care Provider [phone] Allergies Active Allergy Reactions Criticality Noted Date [...] CT scan from the emergency department the [facility]. 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 04/01/2019 Overview (04/01/2019): Added automatically from request for surgery [id number] FERNANDEZ (nonalcoholic steatohepatitis) 03/15/2019 Rheumatoid arthritis 02/10/2018 [...] Relation Comments Cardiac Disorder Father Hypertension Father PR Father Arthritis Mother Glaucoma Mother Osteoporosis Mother Cardiac Disorder Other PR Other Malignant Neoplasm Paternal Grandfather Relation Status Comments Father Mother Other Paternal Grandfather Social History Tobacco Use Types Packs/Day Years Used Date Smoking Tobacco: Every Day Cigarettes Smokeless Tobacco: Never Tobacco Cessation:Counseling Given: Yes Alcohol Use Standard Drinks/Week Comments Not Currently 0 (1 standard drink = 0.6 oz pur e alcohol) Social [facility] Utilities Answer Date Recorded In the [...] place to sleep or slept in a nursing home (including now)? No 08/27/2023 Education Answer Date [...] 6:21 PM 04/19/2022 3:21 PM Care Teams Chief Meteorologist Relationship Specialty Start Date End Date Kofi Powell MD [address] [place] [address] PCP - General FAMILY PRACTICE 04/12/22 [place] [address] [facility]. [facility] [address] [place] [address] Consulting Physician RHEUMATOLOGY 02/10/19
--- OUTSIDE RECORDS SUMMARY | 2025-06-16 12:06 | XMS_ITS | Clinical Summary ---
Author Organization [facility] Address [address] [place] [address] Phone Care Team Providers Care Assistant Paralegal Name Role Phone Provider, None Primary Care [...] complete this topic Insurance [employer] Care Teams Assistant Paralegal Relationship Specialty Start Date End Date Provider, None [place] PCP - General 12/17/21
--- OUTSIDE RECORDS SUMMARY | 2025-06-16 12:07 | XMS_ITS | Clinical Summary ---
Author Organization [facility] Address [address] [place] [address] Care Team Providers Care Scratch Brusher Name Role Phone Kofi Powell MD Primary Care Provider Ricky Michel MD Unavailable [phone] Maribell Simeon MD Unavailable [phone] Allergies Active Allergy Reactions Criticality Noted Date [...] w/r/t gut microbiome. Referred to ADA and [employer] websites for additional information on topics including [...] (04/20/2022): Added automatically from request for surgery [id number] Right upper lobe pulmonary nodule 06/10/2020 Overview (03/18/2023): Noted on CT scan from the emergency department the [facility]. 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 04/01/2019 Overview (03/18/2023): Added automatically from request for surgery [id number] FERNANDEZ (nonalcoholic steatohepatitis) 03/15/2019 Factor V Leiden [...] drink = 0.6 oz pur e alcohol) [facility] Utilities Answer Date Recorded In the past 12 months has [employer], gas, oil, or water [employer] threatened to shut off services in your [...] often do you attend chur ch or episcopal services? 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 Correlate with separately reported cytology results, as applicable. 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 [employer] Clinical history and diagnosis->screening Number of vials->1 Testing type->Screening Last menstrual period (date if known)->unk Menstrual status->Postmenopausal Jyotsna Espinosa MD LAB BODY FLUID S AND STOOLS ORDERABLES Final Result [facility] [place] [address] from Last 3 Months or Most Recently Relevant to Health Maintenance Insurance [facility] [place] [address] [facility] [address] [facility] [place] [address] Advance Directives For more information, please contact: [phone] * Full Code (Latest Code Status on File) Date Activated Date Inactivated Comments 08/31/2023 4:14 AM 09/05/2023 4:44 PM * Full Code Date Activated Date Inactivated Comments 04/19/2022 2:26 PM 04/25/2022 4:03 PM Care Teams Scratch Brusher Relationship Specialty Start Date End Date Kofi Powell MD [address] [place] [address] PCP - General Family Medicine 04/21/22 Ricky Michel MD [address] [place] [address] Consulting Physician Internal Medicine 04/25/22 Maribell Simeon MD [address] [place], [place] [id number] Consulting Physician Otolaryngology 05/22/23 Betzy Hannah, [facility] [address] [facility] [address] Shipping Assistant Infectious Diseases 12/10/22
[2025-06-16 12:16] VITALS: BP 104/67; PULSE 115; RESP 18; TEMP 36.5; O2SAT 98
[2025-06-16 12:37] LABS: EDCOVIDSCREEN Negative (Negative); EDINFLUASCREEN Negative (Negative); EDINFLUBSCREEN Negative (Negative)
== END 2025-06-16 12:43 | disposition home or self-care (01) ==
PROVIDERS: Emergency Provider Nurse Practitioner Family; PCP Family Medicine
DX: K52.9 Noninfective gastroenteritis and colitis, unspecified (principal); Z20.822 Contact with and (suspected) exposure to COVID-19; E55.9 Vitamin D deficiency, unspecified; D68.51 Activated protein C resistance; M06.9 Rheumatoid arthritis, unspecified; Z87.891 Personal history of nicotine dependence
CPT/HCPCS: 87426; 87804; 99212; G0463